=== PATIENT | male | born 1955 | race Caucasian/White ===

== ENCOUNTER 2016-10-16 05:32 | Emergency (ER) | payer OTHER ==
[~2016-10-16] VITALS: Ht 172.7 cm; Wt 72.6 kg
[~2016-10-16 05:32] MED LIST: TAMS0.4C97 PO
--- NOTE | 2016-10-16 06:07 | PHYS DOC ---
Past Medical History Past Medical History: Gallstones, Kidney Stone, Other Additional Past Medical Histor: ENLARGED PROSTATE Past Surgical History: Tonsillectomy, Other Additional Past Surgical Histo: MULTIPLE ORTHOPEDIC SURG, kidney stones Alcohol Use: None Drug Use: None Adult General Chief Complaint Chief Complaint: MECHANICAL FALL HPI HPI Patient is a 61 year old male who presents with rib pain. Patient reports 1 week ago he was walking trash out when he slipped on ice and fell, landing on his L side. He says his L elbow jammed into his L ribs during the fall. Patient has had continued pain in his L ribs during that time. He reports increased pain with movement or breathing. He is not SOB, but does have the increased pain with inspiration. Has been taking naproxen with partial improvement, but he has run out. No other acute complaints. Review of Systems Review of Systems Constitutional: Denies fever or chills Eyes: Denies change in visual acuity or eye pain HENT: Denies nasal congestion or sore throat Respiratory: Denies cough or shortness of breath Cardiovascular: L rib pain, no anterior chest pain GI: Denies abdominal pain, nausea, vomiting, bloody stools or diarrhea : Denies dysuria or hematuria Musculoskeletal: L rib pain Integument: Denies rash or skin lesions Neurologic: Denies headache, focal weakness or sensory changes Current Medications Current Medications Current Medications Medications (Trade) Dose Ordered Sig/Annie Start Time Stop Time Status Last Admin Dose Admin Naproxen (Naprosyn) 500 mg 1X ONCE 10/16/16 06:30 10/16/16 06:31 DC 10/16/16 06:52 500 MG Oxycodone/ Acetaminophen (Percocet 5/325) 2 tab 1X ONCE 10/16/16 06:30 10/16/16 06:31 DC 10/16/16 06:51 2 TAB Allergies Allergies Allergies Coded Allergies Type Severity Reaction Last Updated Verified ceftriaxone Allergy Intermediate 05/02/16 Yes ciprofloxacin Allergy Intermediate Palpitations 05/02/16 Yes Physical Exam Physical Exam Constitutional: Well developed, well nourished, no acute distress, non-toxic appearance HENT: Normocephalic, atraumatic, bilateral external ears normal Eyes: EOMI, conjunctiva normal, no discharge Neck: Normal range of motion, no stridor Cardiovascular: Heart rate normal, regular rhythm, no murmur Lungs & Thorax: Bilateral breath sounds clear to auscultation; L lateral chest wall without skin lesion or obvious bony abnormality, generally TTP along mid axillary line Abdomen: Bowel sounds normal, soft, non-distended, no TTP Skin: Warm, dry, no erythema, no rash Extremities: No obvious deformity, no edema Neurologic: Alert and oriented X 3, no gross deficits noted Current Patient Data Vital Signs Vital Signs Date Time Temp Pulse Resp B/P Pulse Ox O2 Delivery O2 Flow Rate FiO2 10/16/16 06:53 73 16 123/78 96 Room Air 10/16/16 05:41 98.4 98.4 EKG EKG EKG (my read): sinus rhythm, rate 68, normal axis, intervals wnl, no acute ischemic changes Radiology/Procedures Radiology/Procedures X-ray L ribs and chest: IMPRESSION: Left fifth and sixth rib fractures. Course & Med Decision Making Course & Med Decision Making Pertinent Labs and Imaging studies reviewed. (See chart for details) Patient is a 61 year old male who presents with L lateral chest pain s/p fall one week ago. Possible rib fx vs rib contusion. X-ray of ribs ordered as well as EKG. Oral pain medication ordered for symptoms. EKG ok per my read. Imaging results as above. Discussed results with patient. I provided him with an incentive spirometer and instructed him on its usage. Will discharge home with rx for pain meds, instructions for follow up with his PCP, and return precautions. Dragon Disclaimer Dragon Disclaimer This electronic medical record was generated, in whole or in part, using a voice recognition dictation system. Departure Departure Impression: Primary Impression: Rib fractures Disposition: 01 HOME, SELF-CARE Condition: STABLE Referrals: NO PCP (PCP) Patient Instructions: Incentive Spirometer, Rib Fracture Additional Instructions: Thank you for allowing us to provide care today in the Emergency Department. Take the provided medication as directed. Use caution after taking the pain medication as it can make you drowsy. Use the breathing device (incentive spirometer) frequently as we discussed. Schedule a follow up appointment with your primary care doctor. Return promptly to the Emergency Department if you develop any new or concerning symptoms. Scripts Naproxen 375 Mg [id number] Mg PO BID #40 Prov:LASHONDA CHAUHAN MD 10/16/16 Oxycodone/Apap 5-325 (Percocet 5-325 Mg Tablet)1 Each Tablet1 Tab PO PRN Q6HRS PRN PAIN #25 TAB Ref 0 Prov:LASHONDA CHAUHAN MD 10/16/16 LASHONDA CHAUHAN MD Oct 16, 2016 06:07
[2016-10-16] MEDS ORDERED: OXYCODONE/APAP 5/325 TABLET. PO ONE (06:30)
[2016-10-16] MEDS ORDERED: NAPROXEN 500 MG TABLET PO ONE (06:30)
--- NOTE | 2016-10-16 06:34 | ACF ---
Admission Forms Criteria PAIN MANAGEMENT [facility] Clinical Indications for Admission to Inpatient Care (Place 'X' for any and all applicable criteria): Hospital admission is needed for appropriate care of the patient because of ANY ONE of the following are present (1)(2)(3)(4)(5): [X]I. Severe pain requiring acute inpatient management as indicated by ALL of the following (2)(5)(10): [ ]a) Continuous or frequent (eg, every 2 to 4 hours) parenteral analgesics required [A] [X]b) Necessity (ie, alternative approaches not effective) for analgesic regimen that can only be performed or initiated in inpatient setting [ ]II. Pain causing debilitation to the point of inability to function or be supported at any other level of care [ ]III. Severe side effects from pain medications as indicated by ANY ONE of the following (12)(13)(14)(15): [ ]a) Uncontrollable seizures [ ]b) Cardiac arrhythmias [ ]c) Severe volume depletion [ ]d) Vomiting that is uncontrollable at any other level of care [ ]e) Altered mental status (Harish coma scale score less than 13) [ ]f) Obstipation with inadequate GI function to maintain nutrition [ ]g) Dehydration that is severe or persistent The original [employer] content created by [employer] has been revised. The portions of the content which have been revised are identified through the use of italic text or in bold, and [employer] has neither reviewed nor approved the modified material. All other unmodified content is copyright [employer]. Please see references footnoted in the original [employer] edition 2016 Admission Criteria Met?: Yes JORGE SHANNON Oct 16, 2016 06:34
--- NOTE | 2016-10-16 07:07 | EKG ---
[facility] [address] [place] [address] Test Date: 2016-10-16 Test Time: 06:49:56 Pat Name: DEVAN LAY Department: Room: Gender: M Radiography Technician: : 1955 Requested By: LASHONDA CHAUHAN Order Number: [id number] Reading MD: Praveena Cruz Measurements Intervals [place] Rate: 68 P: -30 SC: 172 QRS: 21 QRSD: 82 T: 21 QT: 398 QTc: 428 Interpretive Statements SINUS RHYTHM NORMAL ECG RI6.01 Compared to ECG 05/02/2016 12:41:31 Sinus tachycardia no longer present ST (T wave) deviation no longer present Electronically Signed On 10-17-2016 9:41:52 [employer]NA[employer] by Praveena Cruz
--- NOTE | 2016-10-16 07:11 | RAD ---
Left RIBS with chest, 3 views, 10/16/2016: History: Fall, pain There are fractures of the anterior ends of approximately the left fifth and sixth ribs which appear to be recent. No other acute fracture or rib abnormality is detected. There is no evidence of underlying pneumothorax, hemothorax or pulmonary infiltrate. The heart size is normal. IMPRESSION: Left fifth and sixth rib fractures.
[2016-10-16 07:19] VITALS: BP 117/77
[2016-10-16] MEDS ORDERED: NAPR375T3 PO (07:25)
[2016-10-16] MEDS ORDERED: OXYC-323 PO (07:25)
== END 2016-10-16 07:28 | disposition home or self-care (01) ==
LOC: ER 05:32
DX: S22.42XA Multiple fractures of ribs, left side, initial encounter for closed fracture (principal); Z88.1 Allergy status to other antibiotic agents; W01.0XXA Fall on same level from slipping, tripping and stumbling without subsequent striking against object, initial encounter; Y93.89 Activity, other specified; Y92.89 Other specified places as the place of occurrence of the external cause; Y99.8 Other external cause status
CPT/HCPCS: 71101; 93005; 99284-25

== ENCOUNTER 2017-01-04 02:52 | Emergency (ER) | payer OTHER ==
[~2017-01-04] VITALS: Ht 167.6 cm; Wt 74.8 kg
[~2017-01-04 02:52] MED LIST changes: +NAPR375T3 PO; +OXYC-323 PO
[2017-01-04 03:44] LABS: BILIRUBIN,URINE NEGATIVE (NEG); GLUCOSE,URINE NEGATIVE (NEG); NITRITE,URINE NEGATIVE (NEG); PH,URINE 5.5; PROTEIN,URINE 100 mg/dL (NEG-TRACE); UROBILINOGEN,URINE 0.2 mg/dL (0.2 mg/dL)
[2017-01-04 03:53] LABS: BACTERIA,URINE FEW /HPF (0-FEW); RBC,URINE TNTC /HPF (0-2); WBC,URINE TNTC /HPF (0-4)
[2017-01-04] MEDS ORDERED: FENTANYL PF 100 MCG/2 ML VIAL. IV PRN (04:00)
[2017-01-04] MEDS ORDERED: ONDANSETRON PF 4 MG/2 ML VIAL. IV ONE (04:00)
--- NOTE | 2017-01-04 04:16 | RAD ---
PROCEDURE CT abdomen pelvis without contrast HISTORY Left flank pain TECHNIQUE Noncontrast helical CT scanning of the abdomen and pelvis was performed. Without GI contrast, the sensitivity to detect GI tract pathology is decreased. Without IV contrast, the sensitivity to detect organ pathology is decreased. FINDINGS The liver is homogeneous in appearance on this noncontrast study and is normal in size. The spleen is homogeneous appearance on this noncontrast study and is normal in size. The pancreas is homogeneous appearance on this noncontrast study and is not enlarged. The gallbladder appears normal and no radiopaque gallstones are seen. No extrahepatic biliary ductal dilatation is seen. No adrenal masses are seen. The kidneys appear normal. The urinary bladder is mostly collapsed around a Pérez. Air within the urinary bladder is likely 2nd Pérez placement. There is moderate wall thickening of the urinary bladder. The appendix is normal.] No focal aneurysmal dilatation of the abdominal aorta is seen. No enlarged abdominal or pelvic lymphadenopathy is seen. No free intraperitoneal fluid or free intraperitoneal air is seen. No obstructive bowel pattern or inflammatory changes are seen. The lung bases are clear. No osteolytic process is seen. IMPRESSION [Moderate wall thickening of the urinary bladder could be secondary to cystitis. Neoplasm is possible. Correlation with urinary analysis is recommended. Electronically signed by: Sidney Worley MD (Jan 04, 2017 04:15:08)
[2017-01-04 04:27] LABS: BASO # 0.1 x10^3/uL (0.0-0.2); BASO % 1 % (0-3); EOS % 5 % (0-3); HEMATOCRIT 37.5 % (39.0-53.0); HEMOGLOBIN 12.6 g/dL (13.0-17.5); LYMPH # 3.1 x10^3/uL (1.0-4.8); LYMPH % 36 % (24-48); MEAN CORPUSCULAR HEMOGLOBIN 30 pg (25-35); MEAN CORPUSCULAR HGB CONC 33 g/dL (31-37); MEAN CORPUSCULAR VOLUME 90 fL (79-100); MONO % 14 % (0-9); NEUT % 45 % (31-73); PLATELET COUNT 263 x10^3/uL (140-400); RED BLOOD COUNT 4.16 x10^6/uL (4.30-5.70); RED CELL DISTRIBUTION WIDTH 14.5 % (11.5-14.5); WHITE BLOOD COUNT 8.6 x10^3/uL (4.0-11.0)
[2017-01-04 04:42] LABS: CALCIUM 8.8 mg/dL (8.5-10.1); CREATININE 1.4 mg/dL (0.7-1.3); GFR 51.5; POTASSIUM 3.8 mmol/L (3.5-5.1)
[2017-01-04 04:48] LABS: ALBUMIN 3.2 g/dL (3.4-5.0); ALBUMIN/GLOBULIN RATIO 0.8 (1.0-1.7); TOTAL BILIRUBIN 0.4 mg/dL (0.2-1.0); TOTAL PROTEIN 7.2 g/dL (6.4-8.2)
[2017-01-04] MEDS ORDERED: SMZ/TMP 800/160MG TABLET. PO ONE (05:00)
[2017-01-04] MEDS ORDERED: PHENAZOPYRIDINE 200 MG TABLET. PO ONE (05:15)
[2017-01-04] MEDS ORDERED: PHEN-318 PO (05:15)
[2017-01-04] MEDS ORDERED: SULF1TAB24 PO (05:15)
[2017-01-04 05:18] VITALS: BP 111/75
--- NOTE | 2017-01-04 07:53 | ED.ADGEN ---
Past Medical History Past Medical History: Gallstones, Kidney Stone, Other Additional Past Medical Histor: ENLARGED PROSTATE Past Surgical History: Tonsillectomy, Other Additional Past Surgical Histo: MULTIPLE ORTHOPEDIC SURG, kidney stones Alcohol Use: None Drug Use: None Adult General Chief Complaint Chief Complaint: URINARY RETENTION HPI HPI Patient is a 61 year old man, history of enlarged prostate, renal calculi, urinary retention, who presents to the emergency department with a complaint of lower quadrant abdominal pain, difficulty with urination. Patient states that he had what sounds like a bladder scan performed at his home yesterday, with his home health provider. He states that he had a Pérez catheter placed several years ago due to urinary retention, but did not follow-up with a urologist far as he is aware. He denies any back pain, any fevers or chills, any nausea or vomiting, any weakness numbness or tingling, any injuries. He states he did have blood in his urine, is concerned that he may have recurrent renal calculi. He does not yet know the results of the scan that was performed earlier today, although he was told that he was "not emptying my bladder". Review of Systems Review of Systems Constitutional: Denies fever or chills. [] Eyes: Denies change in visual acuity. [] HENT: Denies nasal congestion or sore throat. [] Respiratory: Denies cough or shortness of breath. [] Cardiovascular: Denies chest pain or edema. [] GI: Lower quadrant abdominal pain, nausea, no vomiting or diarrhea. : Dysuria, and difficulty with passing urine, hematuria. Musculoskeletal: Denies back pain or joint pain. [] Integument: Denies rash. [] Neurologic: Denies headache, focal weakness or sensory changes. [] Endocrine: Denies polyuria or polydipsia. [] Lymphatic: Denies swollen glands. [] Psychiatric: Denies depression or anxiety. [] Current Medications Current Medications Current Medications Medications (Trade) Dose Ordered Sig/Annie Start Time Stop Time Status Last Admin Dose Admin Fentanyl Citrate (Fentanyl 2ml Vial) 25 mcg PRN Q15MIN PRN 01/04/17 04:00 01/04/17 05:40 DC 01/04/17 04:19 25 MCG Ondansetron HCl (Zofran) 4 mg 1X ONCE 01/04/17 04:00 01/04/17 04:01 DC 01/04/17 04:18 4 MG Phenazopyridine HCl (Pyridium) 200 mg 1X ONCE 01/04/17 05:15 01/04/17 05:16 DC 01/04/17 05:18 200 MG Trimethoprim/ Sulfamethoxazole (Bactrim Ds) 1 tab 1X ONCE 01/04/17 05:00 01/04/17 05:01 DC 01/04/17 05:06 1 TAB Allergies Allergies Allergies Coded Allergies Type Severity Reaction Last Updated Verified ceftriaxone Allergy Intermediate 05/02/16 Yes ciprofloxacin Allergy Intermediate Palpitations 05/02/16 Yes Physical Exam Physical Exam Constitutional: Well developed, well nourished, mild distress secondary to pain , non-toxic appearance. [] HENT: Normocephalic, atraumatic, bilateral external ears normal, oropharynx moist, no oral exudates, nose normal. [] Eyes: PERRLA, EOMI, conjunctiva normal, no discharge. [] Neck: Normal range of motion, no tenderness, supple, no stridor. [] Cardiovascular:Heart rate regular rhythm, no murmur, S1, S2, rubs or gallops. [] Lungs & Thorax: Bilateral breath sounds clear to auscultation, no wheezing, rhonchi, rales. No chest tenderness or crepitus. [] Abdomen: Bowel sounds normal, soft, palpable bladder noted, patient with tenderness in the suprapubic region, no masses, no pulsatile masses. [] Skin: Warm, dry, no erythema, no rash. [] Back: No tenderness, no CVA tenderness. [] Extremities: No tenderness, no cyanosis, no clubbing, ROM intact, no edema. [] Neurologic: Alert and oriented X 3, normal motor function, normal sensory function, no focal deficits noted. [] Psychologic: Affect normal, judgement normal, mood normal. [] Current Patient Data Vital Signs Vital Signs Date Time Temp Pulse Resp B/P Pulse Ox O2 Delivery O2 Flow Rate FiO2 01/04/17 05:18 60 95 01/04/17 04:34 18 01/04/17 04:19 Room Air 01/04/17 03:00 98.1 137/84 98.1 Lab Values Laboratory Tests Test 01/04/17 03:00 01/04/17 04:10 Urine Collection Type Unknown Urine Color Yellow Urine Clarity Turbid Urine pH 5.5 Urine Specific [place] 1.020 Urine Protein 100mg/dL (NEG-TRACE) Urine Glucose (UA) Negativemg/dL (NEG) Urine Ketones (Stick) Negativemg/dL (NEG) Urine Blood Large (NEG) Urine Nitrite Negative (NEG) Urine Bilirubin Negative (NEG) Urine Urobilinogen Dipstick 0.2mg/dL (0.2 mg/dL) Urine Leukocyte Esterase Large (NEG) Urine RBC Tntc/HPF (0-2) Urine WBC Tntc/HPF (0-4) Urine Squamous Epithelial Cells None/LPF Urine Bacteria Few/HPF (0-FEW) Urine Mucus Slight/LPF White Blood Count 8.6x10^3/uL (4.0-11.0) Red Blood Count 4.16x10^6/uL (4.30-5.70) L Hemoglobin 12.6g/dL (13.0-17.5) L Hematocrit 37.5% (39.0-53.0) L Mean Corpuscular Volume 90fL (79-100) Mean Corpuscular Hemoglobin 30pg (25-35) Mean Corpuscular Hemoglobin Concent 33g/dL (31-37) Red Cell Distribution Width 14.5% (11.5-14.5) Platelet Count 263x10^3/uL (140-400) Neutrophils (%) (Auto) 45% (31-73) Lymphocytes (%) (Auto) 36% (24-48) Monocytes (%) (Auto) 14% (0-9) H Eosinophils (%) (Auto) 5% (0-3) H Basophils (%) (Auto) 1% (0-3) Neutrophils # (Auto) 3.9x10^3uL (1.8-7.7) Lymphocytes # (Auto) 3.1x10^3/uL (1.0-4.8) Monocytes # (Auto) 1.2x10^3/uL (0.0-1.1) H Eosinophils # (Auto) 0.4x10^3/uL (0.0-0.7) Basophils # (Auto) 0.1x10^3/uL (0.0-0.2) Sodium Level 142mmol/L (136-145) Potassium Level 3.8mmol/L (3.5-5.1) Chloride Level 107mmol/L (98-107) Carbon Dioxide Level 24mmol/L (21-32) Anion Gap 11 (6-14) Blood Urea Nitrogen 38mg/dL (8-26) H Creatinine 1.4mg/dL (0.7-1.3) H Estimated GFR (Cockcroft-Gault) 51.5 BUN/Creatinine Ratio 27 (6-20) H Glucose Level 131mg/dL (70-99) H Calcium Level 8.8mg/dL (8.5-10.1) Total Bilirubin 0.4mg/dL (0.2-1.0) Aspartate Amino Transferase (AST) 53U/L (15-37) H Alanine Aminotransferase (ALT) 78U/L (16-63) H Alkaline Phosphatase 73U/L (46-116) Total Protein 7.2g/dL (6.4-8.2) Albumin 3.2g/dL (3.4-5.0) L Albumin/Globulin Ratio 0.8 (1.0-1.7) L Laboratory Tests 01/04/17 04:10 Laboratory Tests 01/04/17 04:10 EKG EKG Not indicated. [] Radiology/Procedures Radiology/Procedures [] [facility] [address] [facility] [place], [place] [id number] IMAGING REPORT Signed PATIENT: DEVAN LAY ACCOUNT: [id number] : 1955 LOCATION: ER AGE: 61 SEX: M EXAM STATUS: REG ER ORD. PHYSICIAN: CONNOR FORREST DO REASON: L flank pain/urinary retention/ hx renal calculi PROCEDURE: CT ABDOMEN PELVIS WO CONTRAST PROCEDURE CT abdomen pelvis without contrast HISTORY Left flank pain TECHNIQUE Noncontrast helical CT scanning of the abdomen and pelvis was performed. Without GI contrast, the sensitivity to detect GI tract pathology is decreased. Without IV contrast, the sensitivity to detect organ pathology is decreased. FINDINGS The liver is homogeneous in appearance on this noncontrast study and is normal in size. The spleen is homogeneous appearance on this noncontrast study and is normal in size. The pancreas is homogeneous appearance on this noncontrast study and is not enlarged. The gallbladder appears normal and no radiopaque gallstones are seen. No extrahepatic biliary ductal dilatation is seen. No adrenal masses are seen. The kidneys appear normal. The urinary bladder is mostly collapsed around a Pérez. Air within the urinary bladder is likely 2nd Pérez placement. There is moderate wall thickening of the urinary bladder. The appendix is normal.] No focal aneurysmal dilatation of the abdominal aorta is seen. No enlarged abdominal or pelvic lymphadenopathy is seen. No free intraperitoneal fluid or free intraperitoneal air is seen. No obstructive bowel pattern or inflammatory changes are seen. The lung bases are clear. No osteolytic process is seen. IMPRESSION [Moderate wall thickening of the urinary bladder could be secondary to cystitis. Neoplasm is possible. Correlation with urinary analysis is recommended. Electronically signed by: Sonam Weber MD (Jan 04, 2017 04:15:08) DICTATED and SIGNED BY: SONAM WEBER III, MD DATE: 01/04/17 0415 CC: JONAH POTTS MD; CONNOR FORREST DO ~ Course & Med Decision Making Course & Med Decision Making Pertinent Labs and Imaging studies reviewed. (See chart for details) Due to patient's complaint of worsening pain, urinary retention, and history of renal calculi, after discussion at bedside we did obtain CT of the abdomen and pelvis to further elucidate the patient's symptoms. Patient noted to have greater than 590 mL's of urine in the bladder post void residual, and he fully catheter was placed in the emergency department without issue with improvement of the patient's symptoms. Patient noted to have mild hematuria. Laboratory studies reveal a creatinine of 1.4, with a blood urea nitrogen of 38, no leukocytosis, urinalysis reveals too numerous to count RBCs and WBCs, is nitrate negative, with few bacteria noted. CT reveals thickening of the bladder wall, no evidence of renal calculi, consistent with likely bladder infection, although unable to rule out possible neoplastic process. I did discuss this with the patient at bedside, he is resting comfortably at this time, states he is ready to be discharged home, is agreeable with plan for oral antibiotics, initiated on Bactrim in the emergency department, and does understand the importance of following up with urology for additional evaluation. To leave the Pérez catheter in place until you're seen by urology, contact information for Dr. Washburn of urology given with his discharge paperwork, along with clear and detailed return instructions, prescriptions for Bactrim and Pyridium. Patient discharged home in stable condition with medication prescriptions and instructions, precautions, follow-up instructions, plan as above. Qianaon Disclaimer Evelin Disclaimer This electronic medical record was generated, in whole or in part, using a voice recognition dictation system. Departure Impression: Primary Impression: Cystitis Additional Impressions: Urinary retention Hematuria Disposition: HOME, SELF-CARE Condition: IMPROVED Scripts Sulfamethoxazole/Trimethoprim (Bactrim Ds Tablet)1 Each Tablet1 Tab PO BID #14 TAB Prov:CONNOR FORREST DO 01/04/17 Phenazopyridine Hcl (Pyridium)200 Mg [id number] Mg PO TID PRN BLADDER SPASM #9 TAB Prov:CONNOR FORREST DO 01/04/17 Problem Qualifiers CONNOR FORREST DO Jan 04, 2017 07:53
== END 2017-01-04 05:30 | disposition home or self-care (01) ==
LOC: ER 02:52
DX: N30.91 Cystitis, unspecified with hematuria (principal); N40.1 Benign prostatic hyperplasia with lower urinary tract symptoms; Z87.442 Personal history of urinary calculi; Z88.1 Allergy status to other antibiotic agents
CPT/HCPCS: 36415; 51702; 74176; 80053; 81001; 85027; 87086; 96374; 96375; 99285; J2405; J3010

== ENCOUNTER 2017-01-29 16:38 | Inpatient (IN) | payer OTHER ==
[~2017-01-29] VITALS: Ht 170.2 cm; Wt 71.4 kg
[~2017-01-29 16:38] MED LIST changes: +PHEN-318 PO; +SULF1TAB24 PO
[2017-01-29 17:45] LABS: BILIRUBIN,URINE NEGATIVE (NEG); GLUCOSE,URINE NEGATIVE (NEG); NITRITE,URINE POSITIVE (NEG); PROTEIN,URINE 100 mg/dL (NEG-TRACE); UROBILINOGEN,URINE 0.2 mg/dL (0.2 mg/dL)
[2017-01-29] MEDS ORDERED: IV NORMAL SALINE 1000ML BAG 1,000 ML IV ONE (18:00)
[2017-01-29] MEDS ORDERED: KETOROLAC 15 MG/ML VIAL. IV ONE (18:00)
[2017-01-29 18:03] LABS: BACTERIA,URINE MANY /HPF (0-FEW); RBC,URINE >40 /HPF (0-2); WBC,URINE TNTC /HPF (0-4)
[2017-01-29 18:22] LABS: BASO # 0.1 x10^3/uL (0.0-0.2); BASO % 0 % (0-3); EOS % 0 % (0-3); HEMATOCRIT 40.7 % (39.0-53.0); HEMOGLOBIN 13.6 g/dL (13.0-17.5); LYMPH % 12 % (24-48); MEAN CORPUSCULAR HEMOGLOBIN 30 pg (25-35); MEAN CORPUSCULAR HGB CONC 33 g/dL (31-37); MEAN CORPUSCULAR VOLUME 90 fL (79-100); MONO % 12 % (0-9); NEUT % 75 % (31-73); PLATELET COUNT 319 x10^3/uL (140-400); RED BLOOD COUNT 4.51 x10^6/uL (4.30-5.70); RED CELL DISTRIBUTION WIDTH 14.4 % (11.5-14.5); WHITE BLOOD COUNT 16.1 x10^3/uL (4.0-11.0)
[2017-01-29 18:48] LABS: CREATININE 1.5 mg/dL (0.7-1.3); GFR 47.6; POTASSIUM 3.9 mmol/L (3.5-5.1)
--- NOTE | 2017-01-29 18:49 | ED.ADGEN ---
Past Medical History Past Medical History: Gallstones, Kidney Stone, Other Additional Past Medical Histor: ENLARGED PROSTATE Past Surgical History: Tonsillectomy, Other Additional Past Surgical Histo: MULTIPLE ORTHOPEDIC SURG, kidney stones Alcohol Use: None Drug Use: None Adult General Chief Complaint Chief Complaint: URINARY RETENTION HPI HPI Patient is a 61 year old man, history of an enlarged prostate and urinary retention, kidney stones, who presents the emergency department with a complaint of urinary retention. He states he's had increasing difficulty passing urine over the past 2 days. States he last voided early this morning. Complaining of abdominal pain and back pain, consistent with previous episodes of urinary retention. He states he has had fully catheters placed previously and has followed with a urologist, states that Her several removed but he is uncertain why he keeps having urinary retention. He states previously had infections in the urine for treated with antibiotics, but not recently. He denies any nausea or vomiting, any chest pain or short of breath, any weakness emesis or tingling, any injuries, any recent travel, surgery or other concerning history, no recent medication changes or missed doses of medication. Review of Systems Review of Systems Constitutional: Denies fever or chills. [] Eyes: Denies change in visual acuity. [] HENT: Denies nasal congestion or sore throat. [] Respiratory: Denies cough or shortness of breath. [] Cardiovascular: Denies chest pain or edema. [] GI: Denies nausea, vomiting, bloody stools or diarrhea. Lower abdominal pain. : Denies dysuria. Inability to urinate over the past 2 days, associated with abdominal pain. Musculoskeletal: Denies back pain or joint pain. [] Integument: Denies rash. [] Neurologic: Denies headache, focal weakness or sensory changes. [] Endocrine: Denies polyuria or polydipsia. [] Lymphatic: Denies swollen glands. [] Psychiatric: Denies depression or anxiety. [] Current Medications Current Medications Current Medications Medications (Trade) Dose Ordered Sig/Annie Start Time Stop Time Status Last Admin Dose Admin Ketorolac Tromethamine 10 mg 10 mg 1X ONCE 01/29/17 18:00 01/29/17 18:01 DC 01/29/17 18:10 10 MG Sodium Chloride (Iv Sodium Chloride 0.9% 1000ml Bag) 1,000 ml @ 1,000 mls/hr 1X ONCE 01/29/17 18:00 01/29/17 18:59 DC 01/29/17 18:10 1,000 MLS/HR Allergies Allergies Allergies Coded Allergies Type Severity Reaction Last Updated Verified ciprofloxacin Allergy Intermediate Palpitations 05/02/16 Yes Physical Exam Physical Exam Constitutional: Well developed, well nourished, no acute distress, non-toxic appearance. [] HENT: Normocephalic, atraumatic, bilateral external ears normal, oropharynx moist, no oral exudates, nose normal. [] Eyes: PERRLA, EOMI, conjunctiva normal, no discharge. [] Neck: Normal range of motion, no tenderness, supple, no stridor. [] Cardiovascular:Heart rate regular rhythm, no murmur [] Lungs & Thorax: Bilateral breath sounds clear to auscultation [] Abdomen: Bowel sounds normal, soft, no tenderness, no masses, no pulsatile masses. [] Skin: Warm, dry, no erythema, no rash. [] Back: No tenderness, no CVA tenderness. [] Extremities: No tenderness, no cyanosis, no clubbing, ROM intact, no edema. [] Neurologic: Alert and oriented X 3, normal motor function, normal sensory function, no focal deficits noted. [] Psychologic: Affect normal, judgement normal, mood normal. [] U examination: Patient with Pérez catheter in place, cloudy reddish yellow urine noted to be in Pérez catheter bag. No testicular tenderness, patient is circumcised, no lesions or injuries identified. Current Patient Data Vital Signs Vital Signs Date Time Temp Pulse Resp B/P Pulse Ox O2 Delivery O2 Flow Rate FiO2 01/29/17 18:34 118 14 96 01/29/17 16:56 98.0 Room Air 98.0 Lab Values Laboratory Tests Test 01/29/17 16:58 01/29/17 18:10 Urine Collection Type Unknown Urine Color Yellow Urine Clarity Turbid Urine pH 6.0 Urine Specific [place] 1.015 Urine Protein 100mg/dL (NEG-TRACE) Urine Glucose (UA) Negativemg/dL (NEG) Urine Ketones (Stick) Negativemg/dL (NEG) Urine Blood Large (NEG) Urine Nitrite Positive (NEG) Urine Bilirubin Negative (NEG) Urine Urobilinogen Dipstick 0.2mg/dL (0.2 mg/dL) Urine Leukocyte Esterase Large (NEG) Urine RBC >40/HPF (0-2) Urine WBC Tntc/HPF (0-4) Urine Bacteria Many/HPF (0-FEW) White Blood Count 16.1x10^3/uL (4.0-11.0) H Red Blood Count 4.51x10^6/uL (4.30-5.70) Hemoglobin 13.6g/dL (13.0-17.5) Hematocrit 40.7% (39.0-53.0) Mean Corpuscular Volume 90fL (79-100) Mean Corpuscular Hemoglobin 30pg (25-35) Mean Corpuscular Hemoglobin Concent 33g/dL (31-37) Red Cell Distribution Width 14.4% (11.5-14.5) Platelet Count 319x10^3/uL (140-400) Neutrophils (%) (Auto) 75% (31-73) H Lymphocytes (%) (Auto) 12% (24-48) L Monocytes (%) (Auto) 12% (0-9) H Eosinophils (%) (Auto) 0% (0-3) Basophils (%) (Auto) 0% (0-3) Neutrophils # (Auto) 12.1x10^3uL (1.8-7.7) H Lymphocytes # (Auto) 2.0x10^3/uL (1.0-4.8) Monocytes # (Auto) 1.9x10^3/uL (0.0-1.1) H Eosinophils # (Auto) 0.0x10^3/uL (0.0-0.7) Basophils # (Auto) 0.1x10^3/uL (0.0-0.2) Sodium Level 132mmol/L (136-145) L Potassium Level 3.9mmol/L (3.5-5.1) Chloride Level 99mmol/L (98-107) Carbon Dioxide Level 26mmol/L (21-32) Anion Gap 7 (6-14) Blood Urea Nitrogen 18mg/dL (8-26) Creatinine 1.5mg/dL (0.7-1.3) H Estimated GFR (Cockcroft-Gault) 47.6 BUN/Creatinine Ratio 12 (6-20) Glucose Level 110mg/dL (70-99) H Calcium Level 9.0mg/dL (8.5-10.1) Total Bilirubin 1.0mg/dL (0.2-1.0) Aspartate Amino Transferase (AST) 24U/L (15-37) Alanine Aminotransferase (ALT) 46U/L (16-63) Alkaline Phosphatase 77U/L (46-116) Total Protein 8.1g/dL (6.4-8.2) Albumin 3.0g/dL (3.4-5.0) L Albumin/Globulin Ratio 0.6 (1.0-1.7) L Laboratory Tests 01/29/17 18:10 Laboratory Tests 01/29/17 18:10 EKG EKG ECG: Sinus tachycardia, heart rate 110 bpm, no ectopy. As interpreted by me. [] Radiology/Procedures Radiology/Procedures None indicated. [] Course & Med Decision Making Course & Med Decision Making Pertinent Labs and Imaging studies reviewed. (See chart for details) Patient noted to be tachycardic, complaining of pain in the emergency department. Possible history of BPH, urinary retention related to urinary tract infection previously. Pérez catheter was placed without issue as stated, with over 400 mL of cloudy yellow red tinged urine. Patient states his abdominal pain is improved immediately, remains tachycardic, in the 1 teens, laboratory studies reveal a leukocytosis, with a nitrate positive UTI, examination and symptoms consistent with pyelonephritis. Patient receiving IV fluids, pain medication, is agreeable for initial hospital for IV antibiotics. Patient states that he has "uncontrolled movements" with ceftriaxone, no rash, or difficulty breathing, he cannot recall his allergy to Cipro Floxin, therefore the patient was initiated on cefepime in the emergency department without issue. Findings as above discussed with Dr. Harper of internal medicine, patient accepted his service as a full admission to the medical telemetry floor , patient's heart rate is improving, he remains afebrile the ED, consultation placed for urology. Bridge orders entered per discussion. Patient transported to the floor without issue. Dragon Disclaimer Dragon Disclaimer This electronic medical record was generated, in whole or in part, using a voice recognition dictation system. Departure Impression: Primary Impression: Pyelonephritis Additional Impression: Urinary retention Disposition: ADMITTED INPATIENT Admitting Physician: Ольга Harper Condition: IMPROVED Problem Qualifiers CONNOR FORREST DO January 29, 2017 18:49
[2017-01-29 18:53] LABS: ALBUMIN/GLOBULIN RATIO 0.6 (1.0-1.7); TOTAL PROTEIN 8.1 g/dL (6.4-8.2)
[2017-01-29] MEDS ORDERED: ONDANSETRON PF 4 MG/2 ML VIAL. IV ONE (20:00)
[2017-01-29] MEDS ORDERED: fentaNYL PF VIAL 100 MCG/2 ML VIAL IV PRN (20:00)
[2017-01-29] MEDS ORDERED: CEFEPIME HCL 1 GM in IV NORMAL SALINE 50ML 50 ML IV ONE (20:15)
[2017-01-29] MEDS ORDERED: ACETAMINOPHEN 325 MG TABLET. PO PRN (23:15)
[2017-01-29] MEDS ORDERED: ONDANSETRON PF 4 MG/2 ML VIAL. IV PRN (23:15)
[2017-01-29 23:30] VITALS: BP 147/93
--- NOTE | 2017-01-30 00:07 | HP ---
ADMIT DATE: 01/29/2017 CHIEF COMPLAINT: Flank pain, nausea, vomiting. HISTORY OF PRESENT ILLNESS: The patient is a pleasant 61-year-old male who presented with nausea, vomiting and flank pain, rates it 7/10 while in the ER. We checked his urine. He appears to have pyelonephritis. I have discussed the case with the ER physician. We are going to admit the patient, give him IV fluids, IV antibiotics. PAST MEDICAL HISTORY: Previous pyelonephritis. ALLERGIES: None. FAMILY HISTORY: Diabetes. SOCIAL HISTORY: Does not drink, smoke or take drugs. MEDICATIONS: Reviewed, please refer to MARD. REVIEW OF SYSTEMS: GENERAL: No history of weight change, weakness or fevers. SKIN: No bruising, hair changes or rashes. EYES: No blurred, double or loss of vision. NOSE AND THROAT: No history of nosebleeds, hoarseness or sore throat. HEART: No history of palpitations, chest pain or shortness of breath on exertion. LUNGS: Denies cough, hemoptysis, wheezing or shortness of breath. GASTROINTESTINAL: He complains of nausea and vomiting. GENITOURINARY: No history of frequency, urgency, hesitancy or nocturia. NEUROLOGIC: Denies history of numbness, tingling, tremor or weakness. PSYCHIATRIC: No history of panic, anxiety or depression. ENDOCRINE: No history of heat or cold intolerance, polyuria or polydipsia. MUSCULOSKELETAL: He complains of flank pain. PHYSICAL EXAMINATION: VITAL SIGNS: Temperature afebrile, pulse 67, respirations 20, blood pressure 133/91. GENERAL: He is alert, cooperative, flat affect. HEART: Normal S1, S2. LUNGS: Clear. ABDOMEN: Soft, positive bowel sounds. EXTREMITIES: No edema. SKIN: No rashes. PSYCHIATRIC: He is flat. ENDOCRINE: No thyromegaly. LYMPHATICS: No cervical nodes. HEMATOPOIETIC: No bruising. ASSESSMENT AND PLAN: Pyelonephritis. The patient has been admitted. We will give IV antibiotics, IV fluids, p.r.n. narcotics. Continue home medicines. ZA CHAMBERS DO DR: LEYLA/juliet JOB#: [id number] / [id number]
[2017-01-30] MEDS: IV NORMAL SALINE 1000ML BAG 1,000 ML IV SCH ×3 (00:14→13:00)
[2017-01-30] MEDS: MORPHINE SULFATE 4 MG/ML DISP.SYRIN. IV PRN ×5 (00:15→20:25)
--- NOTE | 2017-01-30 01:38 | ACF ---
Admission Forms Criteria PYELONEPHRITIS, ACUTE Clinical Indications for Admission to Inpatient Care (Place 'X' for any and all applicable criteria): Admission is indicated for ANY ONE of the following 1,2,3,4,5 [ ]I. Outpatient treatment has failed or is not feasible (eg, multidrug- resistant organism).5 [ ]II. beyond 24 weeks' gestation6 [ ]III. Hemodynamic instability [ ]IV. Immunocompromised state (eg, AIDS, diabetes, sickle cell disease) [X]V. Known renal or urologic abnormalities (eg, indwelling catheter, structural abnormalities, renal calculi, urinary stent, previous urologic surgery) [ ]. Condition that requires drainage procedure, including ANY ONE of the following: [ ]a) Urinary obstruction [ ]b) Pyelitis [ ]c) Pyonephrosis [ ]d) Renal or perinephric abscess [ ]e) Emphysematous pyelonephritis 7 [ ]VII. Inpatient admission required rather than observation care (Also use Pyelonephritis, Acute: Observation Care Criteria as appropriate) because of ANY ONE of the following: [ ]a) High fever or infection requiring inpatient admission as indicated by ANY ONE of [id number] [ ]A. Documented bacteremia [ ]B. Temp>104.9 [id number] (oral) [ ]C. Temp>103.10F (oral) or <96.80F (rectal) that does not respond to all emergency treatment [ ]b) Acute renal failure [ ]c) Other significant finding or clinical condition judged not to be within the scope of observation care [ ]d) IV fluid to replace significant ongoing (eg, for over 24hrs) losses (> 3 L/m2 per day) [ ]e) Other condition,treatment or monitoring requiring inpatient admission The original [facility] content created by [employer] has been revised. The portions of the content which have been revised are identified through the use of italic text or in bold, and [facility] has neither reviewed nor approved the modified material. All other unmodified content is copyright [facility]. Please see references footnoted in the original [facility] edition 2016 Admission Criteria Met?: Yes CELESTINO ARZATE January 30, 2017 01:38
[2017-01-30] MEDS: IBUPROFEN 600 MG TABLET. PO PRN ×2 (03:27→15:07)
[2017-01-30 03:47] VITALS: BP 144/88
[2017-01-30] MEDS ORDERED: PROP20TA (03:47)
[2017-01-30] MEDS ORDERED: ERGO500012 (03:47)
[2017-01-30] MEDS ORDERED: DUTA0.5C13 (03:47)
[2017-01-30] MEDS ORDERED: TADA5TAB (03:47)
[2017-01-30 04:57] LABS: BASO # 0.1 x10^3/uL (0.0-0.2); BASO % 0 % (0-3); EOS % 0 % (0-3); HEMATOCRIT 37.7 % (39.0-53.0); HEMOGLOBIN 12.7 g/dL (13.0-17.5); LYMPH # 1.2 x10^3/uL (1.0-4.8); LYMPH % 6 % (24-48); MEAN CORPUSCULAR HEMOGLOBIN 31 pg (25-35); MEAN CORPUSCULAR HGB CONC 34 g/dL (31-37); MEAN CORPUSCULAR VOLUME 91 fL (79-100); MONO % 11 % (0-9); NEUT % 83 % (31-73); PLATELET COUNT 296 x10^3/uL (140-400); RED BLOOD COUNT 4.16 x10^6/uL (4.30-5.70); RED CELL DISTRIBUTION WIDTH 14.1 % (11.5-14.5); WHITE BLOOD COUNT 20.9 x10^3/uL (4.0-11.0)
[2017-01-30 05:22] LABS: CALCIUM 8.6 mg/dL (8.5-10.1); CREATININE 1.5 mg/dL (0.7-1.3); GFR 47.6; POTASSIUM 3.5 mmol/L (3.5-5.1)
[2017-01-30] MEDS: CEFEPIME HCL 1 GM in IV NORMAL SALINE 50ML 50 ML IV SCH ×3 (06:03→22:00)
--- NOTE | 2017-01-30 06:27 | EKG ---
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
[2017-01-30 07:00] VITALS: BP 114/79
[2017-01-30] MEDS ORDERED: PHENAZOPYRIDINE 200 MG TABLET. PO PRN (08:45)
[2017-01-30] MEDS ORDERED: ACETAMINOPHEN 325 MG TABLET. PO PRN (08:45)
[2017-01-30] MEDS ORDERED: ONDANSETRON PF 4 MG/2 ML VIAL. IV PRN (08:45)
[2017-01-30] MEDS: TAMSULOSIN 0.4 MG CAP.ER.24H. PO SCH (09:00)
[2017-01-30] MEDS ORDERED: TAMSULOSIN 0.4 MG CAP.ER.24H. PO SCH (09:00)
--- NOTE | 2017-01-30 09:10 | PDOC ---
PROGRESS NOTES Subjective Subjective Pt. with urosepsis Objective Objective Vital Signs Date Time Temp Pulse Resp B/P Pulse Ox O2 Delivery O2 Flow Rate FiO2 01/30/17 07:35 Room Air 01/30/17 07:00 98.8 109 20 114/79 92 98.8 Intake and Output 01/30/17 07:00 Intake Total 2090 ml Output Total 700 ml Balance 1390 ml Intake Oral 240 ml IV Total 1850 ml Output Urine Total 700 ml Physical Exam Physical Exam churchill in place scrotal swelling and tenderness flank pain Plan Plan of Care scrotal and renal sono scrotal elevation ID and renal consult Problems Medical Problems: (1) Pyelonephritis Status: Acute (2) Urinary retention Status: Acute Comment Review of Relevant I have reviewed the following items cesar (where applicable) has been applied. Labs Laboratory Tests Test 01/29/17 16:58 01/29/17 18:10 01/30/17 04:02 Urine Collection Type Unknown Urine Color Yellow Urine Clarity Turbid Urine pH 6.0 Urine Specific [place] 1.015 Urine Protein 100mg/dL (NEG-TRACE) Urine Glucose (UA) Negativemg/dL (NEG) Urine Ketones (Stick) Negativemg/dL (NEG) Urine Blood Large (NEG) Urine Nitrite Positive (NEG) Urine Bilirubin Negative (NEG) Urine Urobilinogen Dipstick 0.2mg/dL (0.2 mg/dL) Urine Leukocyte Esterase Large (NEG) Urine RBC >40/HPF (0-2) Urine WBC Tntc/HPF (0-4) Urine Bacteria Many/HPF (0-FEW) White Blood Count 16.1x10^3/uL (4.0-11.0) 20.9x10^3/uL (4.0-11.0) Red Blood Count 4.51x10^6/uL (4.30-5.70) 4.16x10^6/uL (4.30-5.70) Hemoglobin 13.6g/dL (13.0-17.5) 12.7g/dL (13.0-17.5) Hematocrit 40.7% (39.0-53.0) 37.7% (39.0-53.0) Mean Corpuscular Volume 90fL (79-100) 91fL (79-100) Mean Corpuscular Hemoglobin 30pg (25-35) 31pg (25-35) Mean Corpuscular Hemoglobin Concent 33g/dL (31-37) 34g/dL (31-37) Red Cell Distribution Width 14.4% (11.5-14.5) 14.1% (11.5-14.5) Platelet Count 319x10^3/uL (140-400) 296x10^3/uL (140-400) Neutrophils (%) (Auto) 75% (31-73) 83% (31-73) Lymphocytes (%) (Auto) 12% (24-48) 6% (24-48) Monocytes (%) (Auto) 12% (0-9) 11% (0-9) Eosinophils (%) (Auto) 0% (0-3) 0% (0-3) Basophils (%) (Auto) 0% (0-3) 0% (0-3) Neutrophils # (Auto) 12.1x10^3uL (1.8-7.7) 17.5x10^3uL (1.8-7.7) Lymphocytes # (Auto) 2.0x10^3/uL (1.0-4.8) 1.2x10^3/uL (1.0-4.8) Monocytes # (Auto) 1.9x10^3/uL (0.0-1.1) 2.2x10^3/uL (0.0-1.1) Eosinophils # (Auto) 0.0x10^3/uL (0.0-0.7) 0.0x10^3/uL (0.0-0.7) Basophils # (Auto) 0.1x10^3/uL (0.0-0.2) 0.1x10^3/uL (0.0-0.2) Sodium Level 132mmol/L (136-145) 132mmol/L (136-145) Potassium Level 3.9mmol/L (3.5-5.1) 3.5mmol/L (3.5-5.1) Chloride Level 99mmol/L (98-107) 99mmol/L (98-107) Carbon Dioxide Level 26mmol/L (21-32) 21mmol/L (21-32) Anion Gap 7 (6-14) 12 (6-14) Blood Urea Nitrogen 18mg/dL (8-26) 18mg/dL (8-26) Creatinine 1.5mg/dL (0.7-1.3) 1.5mg/dL (0.7-1.3) Estimated GFR (Cockcroft-Gault) 47.6 47.6 BUN/Creatinine Ratio 12 (6-20) Glucose Level 110mg/dL (70-99) 95mg/dL (70-99) Calcium Level 9.0mg/dL (8.5-10.1) 8.6mg/dL (8.5-10.1) Total Bilirubin 1.0mg/dL (0.2-1.0) Aspartate Amino Transf (AST/SGOT) 24U/L (15-37) Alanine Aminotransferase (ALT/SGPT) 46U/L (16-63) Alkaline Phosphatase 77U/L (46-116) Total Protein 8.1g/dL (6.4-8.2) Albumin 3.0g/dL (3.4-5.0) Albumin/Globulin Ratio 0.6 (1.0-1.7) Laboratory Tests Test 01/29/17 16:58 01/29/17 18:10 01/30/17 04:02 Urine Collection Type Unknown Urine Color Yellow Urine Clarity Turbid Urine pH 6.0 Urine Specific [place] 1.015 Urine Protein 100mg/dL (NEG-TRACE) Urine Glucose (UA) Negativemg/dL (NEG) Urine Ketones (Stick) Negativemg/dL (NEG) Urine Blood Large (NEG) Urine Nitrite Positive (NEG) Urine Bilirubin Negative (NEG) Urine Urobilinogen Dipstick 0.2mg/dL (0.2 mg/dL) Urine Leukocyte Esterase Large (NEG) Urine RBC >40/HPF (0-2) Urine WBC Tntc/HPF (0-4) Urine Bacteria Many/HPF (0-FEW) White Blood Count 16.1x10^3/uL (4.0-11.0) 20.9x10^3/uL (4.0-11.0) Red Blood Count 4.51x10^6/uL (4.30-5.70) 4.16x10^6/uL (4.30-5.70) Hemoglobin 13.6g/dL (13.0-17.5) 12.7g/dL (13.0-17.5) Hematocrit 40.7% (39.0-53.0) 37.7% (39.0-53.0) Mean Corpuscular Volume 90fL (79-100) 91fL (79-100) Mean Corpuscular Hemoglobin 30pg (25-35) 31pg (25-35) Mean Corpuscular Hemoglobin Concent 33g/dL (31-37) 34g/dL (31-37) Red Cell Distribution Width 14.4% (11.5-14.5) 14.1% (11.5-14.5) Platelet Count 319x10^3/uL (140-400) 296x10^3/uL (140-400) Neutrophils (%) (Auto) 75% (31-73) 83% (31-73) Lymphocytes (%) (Auto) 12% (24-48) 6% (24-48) Monocytes (%) (Auto) 12% (0-9) 11% (0-9) Eosinophils (%) (Auto) 0% (0-3) 0% (0-3) Basophils (%) (Auto) 0% (0-3) 0% (0-3) Neutrophils # (Auto) 12.1x10^3uL (1.8-7.7) 17.5x10^3uL (1.8-7.7) Lymphocytes # (Auto) 2.0x10^3/uL (1.0-4.8) 1.2x10^3/uL (1.0-4.8) Monocytes # (Auto) 1.9x10^3/uL (0.0-1.1) 2.2x10^3/uL (0.0-1.1) Eosinophils # (Auto) 0.0x10^3/uL (0.0-0.7) 0.0x10^3/uL (0.0-0.7) Basophils # (Auto) 0.1x10^3/uL (0.0-0.2) 0.1x10^3/uL (0.0-0.2) Sodium Level 132mmol/L (136-145) 132mmol/L (136-145) Potassium Level 3.9mmol/L (3.5-5.1) 3.5mmol/L (3.5-5.1) Chloride Level 99mmol/L (98-107) 99mmol/L (98-107) Carbon Dioxide Level 26mmol/L (21-32) 21mmol/L (21-32) Anion Gap 7 (6-14) 12 (6-14) Blood Urea Nitrogen 18mg/dL (8-26) 18mg/dL (8-26) Creatinine 1.5mg/dL (0.7-1.3) 1.5mg/dL (0.7-1.3) Estimated GFR (Cockcroft-Gault) 47.6 47.6 BUN/Creatinine Ratio 12 (6-20) Glucose Level 110mg/dL (70-99) 95mg/dL (70-99) Calcium Level 9.0mg/dL (8.5-10.1) 8.6mg/dL (8.5-10.1) Total Bilirubin 1.0mg/dL (0.2-1.0) Aspartate Amino Transf (AST/SGOT) 24U/L (15-37) Alanine Aminotransferase (ALT/SGPT) 46U/L (16-63) Alkaline Phosphatase 77U/L (46-116) Total Protein 8.1g/dL (6.4-8.2) Albumin 3.0g/dL (3.4-5.0) Albumin/Globulin Ratio 0.6 (1.0-1.7) Medications Current Medications Ketorolac Tromethamine 10 mg 10 mg 1X ONCE IV Last administered on 01/29/17 18 :10; Start 01/29/17 at 18:00; Stop 01/29/17 at 18:01; Status DC Sodium Chloride 1,000 ml @ 1,000 mls/hr 1X ONCE IV Last administered on 18:10; Start 01/29/17 at 18:00; Stop 01/29/17 at 18:59; Status DC Cefepime HCl/ Sodium Chloride (Maxipime/Iv Sodium Chloride 0.9% 50ml) 50 ml @ 100 mls/hr Q8HRS IV Last administered on 01/30/17 06:03; Start 01/30/17 at 06:00 Fentanyl Citrate (Fentanyl 2ml Vial) 25 mcg PRN Q15MIN PRN IV PAIN GREATER THAN 3/10; Start 01/29/17 at 20:00; Stop 01/30/17 at 00:00; Status DC Ondansetron HCl 4 mg 4 mg 1X ONCE IV ; Start 01/29/17 at 20:00; Stop 01/29/17 at 20:01; Status DC Cefepime HCl/ Sodium Chloride (Maxipime/Iv Sodium Chloride 0.9% 50ml) 50 ml @ 100 mls/hr 1X ONCE IV Last administered on 01/29/17 20:15; Start 01/29/17 at 20 :15; Stop 01/29/17 at 20:44; Status DC Ondansetron HCl (Zofran) 4 mg PRN Q8HRS PRN IV NAUSEA/VOMITING; Start 01/29/17 at 23:15; Stop 01/30/17 at 23:14 Morphine Sulfate 4 mg 4 mg PRN Q2HR PRN IV SEVERE PAIN Last administered on 01/30 06:12; Start 01/29/17 at 23:15; Stop 01/30/17 at 23:14 Sodium Chloride (Iv Sodium Chloride 0.9% 1000ml Bag) 1,000 ml @ 125 mls/hr Q8H IV Last administered on 01/30/17 06:04; Start 01/29/17 at 23:02; Stop 01/30/17 at 23:01 Acetaminophen (Tylenol) 650 mg PRN Q4HRS PRN PO FEVER Last administered on 00:14; Start 01/29/17 at 23:15; Stop 01/30/17 at 23:14 Ibuprofen (Motrin) 600 mg PRN Q6HRS PRN PO FEVER Last administered on 01/30/17 03:27; Start 01/30/17 at 03:15 Acetaminophen (Tylenol) 650 mg PRN Q6HRS PRN PO FEVER; Start 01/30/17 at 08:45 Ondansetron HCl (Zofran) 4 mg PRN Q6HRS PRN IV NAUSEA/VOMITING; Start 01/30/17 at 08:45 Oxycodone/ Acetaminophen (Percocet 5/325) 1 tab PRN Q6HRS PRN PO PAIN; Start at 08:45 Phenazopyridine HCl (Pyridium) 200 mg PRN TID PRN PO BLADDER SPASM; Start at 08:45 Tamsulosin HCl (Flomax) 0.4 mg DAILY PO ; Start 01/30/17 at 09:00; Stop 01/30/17 at 09:00; Status DC Tamsulosin HCl (Flomax) 0.8 mg DAILY PO ; Start 01/30/17 at 09:00 Active Scripts Active Bactrim Ds Tablet (Sulfamethoxazole/Trimethoprim) 1 Each Tablet 1 Tab PO BID Pyridium (Phenazopyridine Hcl) 200 Mg Tablet 200 Mg PO TID PRN Naproxen 375 Mg Tablet 375 Mg PO BID Percocet 5-325 Mg Tablet (Oxycodone/Acetaminophen) 1 Each Tablet 1 Tab PO PRN Q6HRS PRN Reported Cialis (Tadalafil) 5 Mg Tablet Vitamin D2 (Ergocalciferol (Vitamin D2)) 50,000 Unit Capsule Dutasteride 0.5 Mg Capsule Flomax (Tamsulosin Hcl) 0.4 Mg Cap.er.24h 1 Cap PO DAILY Propranolol Hcl 20 Mg Tablet Vitals/I & O Vital Sign - Last 24 Hours 01/29/17 01/29/17 01/29/17 01/29/17 16:56 18:34 20:07 23:30 Temp 98.0 98.0 Pulse 130 118 112 Resp 26 14 16 Pulse Ox 96 96 96 O2 Delivery Room Air Room Air 01/29/17 01/30/17 01/30/17 01/30/17 23:30 00:15 02:27 03:47 Temp 100.1 101.5 100.1 101.5 Pulse 118 126 Resp 22 18 B/P 147/93 144/88 Pulse Ox 95 96 96 91 O2 Delivery Room Air Room Air Room Air Room Air 01/30/17 01/30/17 01/30/17 01/30/17 05:30 06:12 06:42 07:00 Temp 98.7 98.8 98.7 98.8 Pulse 109 B/P 114/79 Pulse Ox 91 91 O2 Delivery Room Air Room Air 01/30/17 01/30/17 07:00 07:35 Temp 98.8 98.8 Pulse 109 Resp 20 B/P 114/79 Pulse Ox 92 O2 Delivery Room Air Room Air Intake and Output 01/29/17 01/29/17 01/30/17 15:00 23:00 07:00 Intake Total 1050 ml 1040 ml Output Total 700 ml Balance 1050 ml 340 ml MANUEL PATINO MD January 30, 2017 09:10
--- NOTE | 2017-01-30 09:37 | PDOC ---
Infectious Disease Note Vital Sign Vital Signs Vital Signs Date Time Temp Pulse Resp B/P Pulse Ox O2 Delivery O2 Flow Rate FiO2 01/30/17 07:35 Room Air 01/30/17 07:00 98.8 109 20 114/79 92 98.8 Labs Lab Laboratory Tests Test 01/29/17 16:58 01/29/17 18:10 01/30/17 04:02 Urine Collection Type Unknown Urine Color Yellow Urine Clarity Turbid Urine pH 6.0 Urine Specific [place] 1.015 Urine Protein 100mg/dL (NEG-TRACE) Urine Glucose (UA) Negativemg/dL (NEG) Urine Ketones (Stick) Negativemg/dL (NEG) Urine Blood Large (NEG) Urine Nitrite Positive (NEG) Urine Bilirubin Negative (NEG) Urine Urobilinogen Dipstick 0.2mg/dL (0.2 mg/dL) Urine Leukocyte Esterase Large (NEG) Urine RBC >40/HPF (0-2) Urine WBC Tntc/HPF (0-4) Urine Bacteria Many/HPF (0-FEW) White Blood Count 16.1x10^3/uL (4.0-11.0) 20.9x10^3/uL (4.0-11.0) Red Blood Count 4.51x10^6/uL (4.30-5.70) 4.16x10^6/uL (4.30-5.70) Hemoglobin 13.6g/dL (13.0-17.5) 12.7g/dL (13.0-17.5) Hematocrit 40.7% (39.0-53.0) 37.7% (39.0-53.0) Mean Corpuscular Volume 90fL (79-100) 91fL (79-100) Mean Corpuscular Hemoglobin 30pg (25-35) 31pg (25-35) Mean Corpuscular Hemoglobin Concent 33g/dL (31-37) 34g/dL (31-37) Red Cell Distribution Width 14.4% (11.5-14.5) 14.1% (11.5-14.5) Platelet Count 319x10^3/uL (140-400) 296x10^3/uL (140-400) Neutrophils (%) (Auto) 75% (31-73) 83% (31-73) Lymphocytes (%) (Auto) 12% (24-48) 6% (24-48) Monocytes (%) (Auto) 12% (0-9) 11% (0-9) Eosinophils (%) (Auto) 0% (0-3) 0% (0-3) Basophils (%) (Auto) 0% (0-3) 0% (0-3) Neutrophils # (Auto) 12.1x10^3uL (1.8-7.7) 17.5x10^3uL (1.8-7.7) Lymphocytes # (Auto) 2.0x10^3/uL (1.0-4.8) 1.2x10^3/uL (1.0-4.8) Monocytes # (Auto) 1.9x10^3/uL (0.0-1.1) 2.2x10^3/uL (0.0-1.1) Eosinophils # (Auto) 0.0x10^3/uL (0.0-0.7) 0.0x10^3/uL (0.0-0.7) Basophils # (Auto) 0.1x10^3/uL (0.0-0.2) 0.1x10^3/uL (0.0-0.2) Sodium Level 132mmol/L (136-145) 132mmol/L (136-145) Potassium Level 3.9mmol/L (3.5-5.1) 3.5mmol/L (3.5-5.1) Chloride Level 99mmol/L (98-107) 99mmol/L (98-107) Carbon Dioxide Level 26mmol/L (21-32) 21mmol/L (21-32) Anion Gap 7 (6-14) 12 (6-14) Blood Urea Nitrogen 18mg/dL (8-26) 18mg/dL (8-26) Creatinine 1.5mg/dL (0.7-1.3) 1.5mg/dL (0.7-1.3) Estimated GFR (Cockcroft-Gault) 47.6 47.6 BUN/Creatinine Ratio 12 (6-20) Glucose Level 110mg/dL (70-99) 95mg/dL (70-99) Calcium Level 9.0mg/dL (8.5-10.1) 8.6mg/dL (8.5-10.1) Total Bilirubin 1.0mg/dL (0.2-1.0) Aspartate Amino Transf (AST/SGOT) 24U/L (15-37) Alanine Aminotransferase (ALT/SGPT) 46U/L (16-63) Alkaline Phosphatase 77U/L (46-116) Total Protein 8.1g/dL (6.4-8.2) Albumin 3.0g/dL (3.4-5.0) Albumin/Globulin Ratio 0.6 (1.0-1.7) Objective Assessment Scrotal swelling and pain, epididymo orchitis Fever and leukocytosis h/o kidney stones UTI with possible pylonephritis Plan Plan of Care cont cefepime add doxy supportive care check cultures KISHOR BLANCO MD January 30, 2017 09:37
[2017-01-30 10:01] LABS: PLT ESTIMATE ADEQUATE (ADEQUATE); TOXIC GRANULATION PRESENT; TOXIC VACUOLATION PRESENT
--- NOTE | 2017-01-30 10:20 | RAD ---
Scrotal ultrasound, 01/30/2017: History: Scrotal swelling The right testicle measures 4.5 x 3.5 x 3.0 cm while the left testicle measures 4.1 x 3.1 x 2.4 cm. There is symmetric blood flow within both testicles. No testicular mass is seen. The epididymis on both sides is enlarged, heterogeneous and hypervascular. The appearance suggests epididymitis. There are moderate sized bilateral hydroceles. The fluid contains some echogenic debris and multiple septations on both sides. IMPRESSION: 1. Bilateral epididymal enlargement and hypervascularity compatible with epididymitis. 2. No testicular abnormality is detected. 3. Moderate sized complex bilateral hydroceles. Infection within this fluid cannot be excluded.
--- NOTE | 2017-01-30 10:21 | RAD ---
Indication compromised renal function. Grayscale imaging targeted to the kidneys was performed. Note is made of a previous complete abdominal ultrasound examination 05/03/2016. Note is made of a CT examination of the abdomen and pelvis 01/04/2017. The right kidney measures 13.1 x 5.3 x 4.7 cm and appears normal. There is no hydronephrosis or mass. The left kidney measures 11.6 x 4.3 x 5 cm and also appears normal showing no evidence of hydronephrosis or mass. Patient has a Pérez catheter in the urinary bladder. The urinary bladder, as a result, is collapsed and poorly evaluated with ultrasound. IMPRESSION: Normal morphologic appearance of the kidneys
[2017-01-30] MEDS: DOXYCYCLINE HYCLATE 100 MG in IV DEXTROSE 5% 100 ML IV SCH ×2 (10:23→20:25)
[2017-01-30 11:00] VITALS: BP 98/57
--- NOTE | 2017-01-30 12:48 | PDOC ---
PROGRESS NOTES Subjective Subjective Pt. with chills Objective Objective Vital Signs Date Time Temp Pulse Resp B/P Pulse Ox O2 Delivery O2 Flow Rate FiO2 01/30/17 11:00 100.4 92 20 98/57 93 Room Air 100.4 Intake and Output 01/30/17 07:00 Intake Total 2090 ml Output Total 700 ml Balance 1390 ml Intake Oral 240 ml IV Total 1850 ml Output Urine Total 700 ml Physical Exam Physical Exam scrotal sono-bilateral epididymitis and complex hydroceles Plan Plan of Care [place]ill Abs per ID scrotal elevation Problems Medical Problems: (1) Pyelonephritis Status: Acute (2) Urinary retention Status: Acute Comment Review of Relevant I have reviewed the following items cesar (where applicable) has been applied. Labs Laboratory Tests Test 01/29/17 16:58 01/29/17 18:10 01/30/17 04:02 Urine Collection Type Unknown Urine Color Yellow Urine Clarity Turbid Urine pH 6.0 Urine Specific [place] 1.015 Urine Protein 100mg/dL (NEG-TRACE) Urine Glucose (UA) Negativemg/dL (NEG) Urine Ketones (Stick) Negativemg/dL (NEG) Urine Blood Large (NEG) Urine Nitrite Positive (NEG) Urine Bilirubin Negative (NEG) Urine Urobilinogen Dipstick 0.2mg/dL (0.2 mg/dL) Urine Leukocyte Esterase Large (NEG) Urine RBC >40/HPF (0-2) Urine WBC Tntc/HPF (0-4) Urine Bacteria Many/HPF (0-FEW) White Blood Count 16.1x10^3/uL (4.0-11.0) 20.9x10^3/uL (4.0-11.0) Red Blood Count 4.51x10^6/uL (4.30-5.70) 4.16x10^6/uL (4.30-5.70) Hemoglobin 13.6g/dL (13.0-17.5) 12.7g/dL (13.0-17.5) Hematocrit 40.7% (39.0-53.0) 37.7% (39.0-53.0) Mean Corpuscular Volume 90fL (79-100) 91fL (79-100) Mean Corpuscular Hemoglobin 30pg (25-35) 31pg (25-35) Mean Corpuscular Hemoglobin Concent 33g/dL (31-37) 34g/dL (31-37) Red Cell Distribution Width 14.4% (11.5-14.5) 14.1% (11.5-14.5) Platelet Count 319x10^3/uL (140-400) 296x10^3/uL (140-400) Neutrophils (%) (Auto) 75% (31-73) 83% (31-73) Lymphocytes (%) (Auto) 12% (24-48) 6% (24-48) Monocytes (%) (Auto) 12% (0-9) 11% (0-9) Eosinophils (%) (Auto) 0% (0-3) 0% (0-3) Basophils (%) (Auto) 0% (0-3) 0% (0-3) Neutrophils # (Auto) 12.1x10^3uL (1.8-7.7) 17.5x10^3uL (1.8-7.7) Lymphocytes # (Auto) 2.0x10^3/uL (1.0-4.8) 1.2x10^3/uL (1.0-4.8) Monocytes # (Auto) 1.9x10^3/uL (0.0-1.1) 2.2x10^3/uL (0.0-1.1) Eosinophils # (Auto) 0.0x10^3/uL (0.0-0.7) 0.0x10^3/uL (0.0-0.7) Basophils # (Auto) 0.1x10^3/uL (0.0-0.2) 0.1x10^3/uL (0.0-0.2) Sodium Level 132mmol/L (136-145) 132mmol/L (136-145) Potassium Level 3.9mmol/L (3.5-5.1) 3.5mmol/L (3.5-5.1) Chloride Level 99mmol/L (98-107) 99mmol/L (98-107) Carbon Dioxide Level 26mmol/L (21-32) 21mmol/L (21-32) Anion Gap 7 (6-14) 12 (6-14) Blood Urea Nitrogen 18mg/dL (8-26) 18mg/dL (8-26) Creatinine 1.5mg/dL (0.7-1.3) 1.5mg/dL (0.7-1.3) Estimated GFR (Cockcroft-Gault) 47.6 47.6 BUN/Creatinine Ratio 12 (6-20) Glucose Level 110mg/dL (70-99) 95mg/dL (70-99) Calcium Level 9.0mg/dL (8.5-10.1) 8.6mg/dL (8.5-10.1) Total Bilirubin 1.0mg/dL (0.2-1.0) Aspartate Amino Transf (AST/SGOT) 24U/L (15-37) Alanine Aminotransferase (ALT/SGPT) 46U/L (16-63) Alkaline Phosphatase 77U/L (46-116) Total Protein 8.1g/dL (6.4-8.2) Albumin 3.0g/dL (3.4-5.0) Albumin/Globulin Ratio 0.6 (1.0-1.7) Segmented Neutrophils % 77% (35-66) Band Neutrophils % 8% (0-9) Lymphocytes % 4% (24-48) Monocytes % 11% (0-10) Toxic Granulation Present Toxic Vacuolation Present Platelet Estimate Adequate (ADEQUATE) Laboratory Tests Test 01/29/17 16:58 01/29/17 18:10 01/30/17 04:02 Urine Collection Type Unknown Urine Color Yellow Urine Clarity Turbid Urine pH 6.0 Urine Specific [place] 1.015 Urine Protein 100mg/dL (NEG-TRACE) Urine Glucose (UA) Negativemg/dL (NEG) Urine Ketones (Stick) Negativemg/dL (NEG) Urine Blood Large (NEG) Urine Nitrite Positive (NEG) Urine Bilirubin Negative (NEG) Urine Urobilinogen Dipstick 0.2mg/dL (0.2 mg/dL) Urine Leukocyte Esterase Large (NEG) Urine RBC >40/HPF (0-2) Urine WBC Tntc/HPF (0-4) Urine Bacteria Many/HPF (0-FEW) White Blood Count 16.1x10^3/uL (4.0-11.0) 20.9x10^3/uL (4.0-11.0) Red Blood Count 4.51x10^6/uL (4.30-5.70) 4.16x10^6/uL (4.30-5.70) Hemoglobin 13.6g/dL (13.0-17.5) 12.7g/dL (13.0-17.5) Hematocrit 40.7% (39.0-53.0) 37.7% (39.0-53.0) Mean Corpuscular Volume 90fL (79-100) 91fL (79-100) Mean Corpuscular Hemoglobin 30pg (25-35) 31pg (25-35) Mean Corpuscular Hemoglobin Concent 33g/dL (31-37) 34g/dL (31-37) Red Cell Distribution Width 14.4% (11.5-14.5) 14.1% (11.5-14.5) Platelet Count 319x10^3/uL (140-400) 296x10^3/uL (140-400) Neutrophils (%) (Auto) 75% (31-73) 83% (31-73) Lymphocytes (%) (Auto) 12% (24-48) 6% (24-48) Monocytes (%) (Auto) 12% (0-9) 11% (0-9) Eosinophils (%) (Auto) 0% (0-3) 0% (0-3) Basophils (%) (Auto) 0% (0-3) 0% (0-3) Neutrophils # (Auto) 12.1x10^3uL (1.8-7.7) 17.5x10^3uL (1.8-7.7) Lymphocytes # (Auto) 2.0x10^3/uL (1.0-4.8) 1.2x10^3/uL (1.0-4.8) Monocytes # (Auto) 1.9x10^3/uL (0.0-1.1) 2.2x10^3/uL (0.0-1.1) Eosinophils # (Auto) 0.0x10^3/uL (0.0-0.7) 0.0x10^3/uL (0.0-0.7) Basophils # (Auto) 0.1x10^3/uL (0.0-0.2) 0.1x10^3/uL (0.0-0.2) Sodium Level 132mmol/L (136-145) 132mmol/L (136-145) Potassium Level 3.9mmol/L (3.5-5.1) 3.5mmol/L (3.5-5.1) Chloride Level 99mmol/L (98-107) 99mmol/L (98-107) Carbon Dioxide Level 26mmol/L (21-32) 21mmol/L (21-32) Anion Gap 7 (6-14) 12 (6-14) Blood Urea Nitrogen 18mg/dL (8-26) 18mg/dL (8-26) Creatinine 1.5mg/dL (0.7-1.3) 1.5mg/dL (0.7-1.3) Estimated GFR (Cockcroft-Gault) 47.6 47.6 BUN/Creatinine Ratio 12 (6-20) Glucose Level 110mg/dL (70-99) 95mg/dL (70-99) Calcium Level 9.0mg/dL (8.5-10.1) 8.6mg/dL (8.5-10.1) Total Bilirubin 1.0mg/dL (0.2-1.0) Aspartate Amino Transf (AST/SGOT) 24U/L (15-37) Alanine Aminotransferase (ALT/SGPT) 46U/L (16-63) Alkaline Phosphatase 77U/L (46-116) Total Protein 8.1g/dL (6.4-8.2) Albumin 3.0g/dL (3.4-5.0) Albumin/Globulin Ratio 0.6 (1.0-1.7) Segmented Neutrophils % 77% (35-66) Band Neutrophils % 8% (0-9) Lymphocytes % 4% (24-48) Monocytes % 11% (0-10) Toxic Granulation Present Toxic Vacuolation Present Platelet Estimate Adequate (ADEQUATE) Medications Current Medications Ketorolac Tromethamine 10 mg 10 mg 1X ONCE IV Last administered on 01/29/17 18 :10; Start 01/29/17 at 18:00; Stop 01/29/17 at 18:01; Status DC Sodium Chloride 1,000 ml @ 1,000 mls/hr 1X ONCE IV Last administered on 18:10; Start 01/29/17 at 18:00; Stop 01/29/17 at 18:59; Status DC Cefepime HCl/ Sodium Chloride (Maxipime/Iv Sodium Chloride 0.9% 50ml) 50 ml @ 100 mls/hr Q8HRS IV Last administered on 01/30/17 06:03; Start 01/30/17 at 06:00 Fentanyl Citrate (Fentanyl 2ml Vial) 25 mcg PRN Q15MIN PRN IV PAIN GREATER THAN 3/10; Start 01/29/17 at 20:00; Stop 01/30/17 at 00:00; Status DC Ondansetron HCl 4 mg 4 mg 1X ONCE IV ; Start 01/29/17 at 20:00; Stop 01/29/17 at 20:01; Status DC Cefepime HCl/ Sodium Chloride (Maxipime/Iv Sodium Chloride 0.9% 50ml) 50 ml @ 100 mls/hr 1X ONCE IV Last administered on 01/29/17 20:15; Start 01/29/17 at 20 :15; Stop 01/29/17 at 20:44; Status DC Ondansetron HCl (Zofran) 4 mg PRN Q8HRS PRN IV NAUSEA/VOMITING; Start 01/29/17 at 23:15; Stop 01/30/17 at 23:14 Morphine Sulfate 4 mg 4 mg PRN Q2HR PRN IV SEVERE PAIN Last administered on 01/30 06:12; Start 01/29/17 at 23:15; Stop 01/30/17 at 23:14 Sodium Chloride (Iv Sodium Chloride 0.9% 1000ml Bag) 1,000 ml @ 125 mls/hr Q8H IV Last administered on 01/30/17 06:04; Start 01/29/17 at 23:02; Stop 01/30/17 at 23:01 Acetaminophen (Tylenol) 650 mg PRN Q4HRS PRN PO FEVER Last administered on 00:14; Start 01/29/17 at 23:15; Stop 01/30/17 at 23:14 Ibuprofen (Motrin) 600 mg PRN Q6HRS PRN PO FEVER Last administered on 01/30/17 03:27; Start 01/30/17 at 03:15 Acetaminophen (Tylenol) 650 mg PRN Q6HRS PRN PO FEVER; Start 01/30/17 at 08:45 Ondansetron HCl (Zofran) 4 mg PRN Q6HRS PRN IV NAUSEA/VOMITING; Start 01/30/17 at 08:45 Oxycodone/ Acetaminophen (Percocet 5/325) 1 tab PRN Q6HRS PRN PO PAIN; Start at 08:45 Phenazopyridine HCl (Pyridium) 200 mg PRN TID PRN PO BLADDER SPASM; Start at 08:45 Tamsulosin HCl (Flomax) 0.4 mg DAILY PO ; Start 01/30/17 at 09:00; Stop 01/30/17 at 09:00; Status DC Tamsulosin HCl 0.8 mg 0.8 mg DAILY PO ; Start 01/30/17 at 09:00 Doxycycline Hyclate/Dextrose (Doxycycline Hyclate) 100 ml @ 50 mls/hr Q12HR IV Last administered on 01/30/17t 10:23; Start 01/30/17 at 10:30 Active Scripts Active Bactrim Ds Tablet (Sulfamethoxazole/Trimethoprim) 1 Each Tablet 1 Tab PO BID Pyridium (Phenazopyridine Hcl) 200 Mg Tablet 200 Mg PO TID PRN Naproxen 375 Mg Tablet 375 Mg PO BID Percocet 5-325 Mg Tablet (Oxycodone/Acetaminophen) 1 Each Tablet 1 Tab PO PRN Q6HRS PRN Reported Cialis (Tadalafil) 5 Mg Tablet Vitamin D2 (Ergocalciferol (Vitamin D2)) 50,000 Unit Capsule Dutasteride 0.5 Mg Capsule Flomax (Tamsulosin Hcl) 0.4 Mg Cap.er.24h 1 Cap PO DAILY Propranolol Hcl 20 Mg Tablet Vitals/I & O Vital Sign - Last 24 Hours 01/29/17 01/29/17 01/29/17 01/29/17 16:56 18:34 20:07 23:30 Temp 98.0 98.0 Pulse 130 118 112 Resp 26 14 16 Pulse Ox 96 96 96 O2 Delivery Room Air Room Air 01/29/17 01/30/17 01/30/17 01/30/17 23:30 00:15 02:27 03:47 Temp 100.1 101.5 100.1 101.5 Pulse 118 126 Resp 22 18 B/P 147/93 144/88 Pulse Ox 95 96 96 91 O2 Delivery Room Air Room Air Room Air Room Air 01/30/17 01/30/17 01/30/17 01/30/17 05:30 06:12 06:42 07:00 Temp 98.7 98.8 98.7 98.8 Pulse 109 B/P 114/79 Pulse Ox 91 91 O2 Delivery Room Air Room Air 01/30/17 01/30/17 01/30/17 07:00 07:35 11:00 Temp 98.8 100.4 98.8 100.4 Pulse 109 92 Resp 20 20 B/P 114/79 98/57 Pulse Ox 92 93 O2 Delivery Room Air Room Air Room Air Intake and Output 01/29/17 01/29/17 01/30/17 15:00 23:00 07:00 Intake Total 1050 ml 1040 ml Output Total 700 ml Balance 1050 ml 340 ml MANUEL PATINO MD January 30, 2017 12:48
--- NOTE | 2017-01-30 13:00 | PDOC ---
PROGRESS NOTES Chief Complaint Chief Complaint 1. sepsis with 2 2. bl epidemitis and bl hydroceles 3. UTI with possible pyelo 4. BPH 5. CKD3 plan: renal, uro, id consult on cefepime, doxy as per ID US done fu ucx, bcx pain control ivf , keep churchill, increase flomax to 0.8mg daily dvt ppx History of Present Illness History of Present Illness abd pain better on Churchill has BPH, and h/o UTI , but not following with uro severe scrotum swelling Vitals Vitals Vital Signs Date Time Temp Pulse Resp B/P Pulse Ox O2 Delivery O2 Flow Rate FiO2 01/30/17 11:00 100.4 92 20 98/57 93 Room Air 100.4 Physical Exam Physical Exam severe scrotum swelling General: Alert, Oriented X3, Cooperative Heart: Regular rate, Normal S1 Lungs: Clear Abdomen: Normal bowel sounds, Soft, No tenderness, Other (CVA no tenderness) Extremities: No clubbing, No cyanosis Labs LABS Laboratory Tests Test 01/29/17 16:58 01/29/17 18:10 01/30/17 04:02 Urine Collection Type Unknown Urine Color Yellow Urine Clarity Turbid Urine pH 6.0 Urine Specific [place] 1.015 Urine Protein 100mg/dL (NEG-TRACE) Urine Glucose (UA) Negativemg/dL (NEG) Urine Ketones (Stick) Negativemg/dL (NEG) Urine Blood Large (NEG) Urine Nitrite Positive (NEG) Urine Bilirubin Negative (NEG) Urine Urobilinogen Dipstick 0.2mg/dL (0.2 mg/dL) Urine Leukocyte Esterase Large (NEG) Urine RBC >40/HPF (0-2) Urine WBC Tntc/HPF (0-4) Urine Bacteria Many/HPF (0-FEW) White Blood Count 16.1x10^3/uL (4.0-11.0) 20.9x10^3/uL (4.0-11.0) Red Blood Count 4.51x10^6/uL (4.30-5.70) 4.16x10^6/uL (4.30-5.70) Hemoglobin 13.6g/dL (13.0-17.5) 12.7g/dL (13.0-17.5) Hematocrit 40.7% (39.0-53.0) 37.7% (39.0-53.0) Mean Corpuscular Volume 90fL (79-100) 91fL (79-100) Mean Corpuscular Hemoglobin 30pg (25-35) 31pg (25-35) Mean Corpuscular Hemoglobin Concent 33g/dL (31-37) 34g/dL (31-37) Red Cell Distribution Width 14.4% (11.5-14.5) 14.1% (11.5-14.5) Platelet Count 319x10^3/uL (140-400) 296x10^3/uL (140-400) Neutrophils (%) (Auto) 75% (31-73) 83% (31-73) Lymphocytes (%) (Auto) 12% (24-48) 6% (24-48) Monocytes (%) (Auto) 12% (0-9) 11% (0-9) Eosinophils (%) (Auto) 0% (0-3) 0% (0-3) Basophils (%) (Auto) 0% (0-3) 0% (0-3) Neutrophils # (Auto) 12.1x10^3uL (1.8-7.7) 17.5x10^3uL (1.8-7.7) Lymphocytes # (Auto) 2.0x10^3/uL (1.0-4.8) 1.2x10^3/uL (1.0-4.8) Monocytes # (Auto) 1.9x10^3/uL (0.0-1.1) 2.2x10^3/uL (0.0-1.1) Eosinophils # (Auto) 0.0x10^3/uL (0.0-0.7) 0.0x10^3/uL (0.0-0.7) Basophils # (Auto) 0.1x10^3/uL (0.0-0.2) 0.1x10^3/uL (0.0-0.2) Sodium Level 132mmol/L (136-145) 132mmol/L (136-145) Potassium Level 3.9mmol/L (3.5-5.1) 3.5mmol/L (3.5-5.1) Chloride Level 99mmol/L (98-107) 99mmol/L (98-107) Carbon Dioxide Level 26mmol/L (21-32) 21mmol/L (21-32) Anion Gap 7 (6-14) 12 (6-14) Blood Urea Nitrogen 18mg/dL (8-26) 18mg/dL (8-26) Creatinine 1.5mg/dL (0.7-1.3) 1.5mg/dL (0.7-1.3) Estimated GFR (Cockcroft-Gault) 47.6 47.6 BUN/Creatinine Ratio 12 (6-20) Glucose Level 110mg/dL (70-99) 95mg/dL (70-99) Calcium Level 9.0mg/dL (8.5-10.1) 8.6mg/dL (8.5-10.1) Total Bilirubin 1.0mg/dL (0.2-1.0) Aspartate Amino Transf (AST/SGOT) 24U/L (15-37) Alanine Aminotransferase (ALT/SGPT) 46U/L (16-63) Alkaline Phosphatase 77U/L (46-116) Total Protein 8.1g/dL (6.4-8.2) Albumin 3.0g/dL (3.4-5.0) Albumin/Globulin Ratio 0.6 (1.0-1.7) Segmented Neutrophils % 77% (35-66) Band Neutrophils % 8% (0-9) Lymphocytes % 4% (24-48) Monocytes % 11% (0-10) Toxic Granulation Present Toxic Vacuolation Present Platelet Estimate Adequate (ADEQUATE) Review of Systems Review of Systems No fever, chills, sob or chest pain Assessment and Plan Assessmemt and Plan Problems Medical Problems: (1) Pyelonephritis Status: Acute (2) Urinary retention Status: Acute Problems: Comment Review of Relevant I have reviewed the following items cesar (where applicable) has been applied. Labs Laboratory Tests Test 01/29/17 16:58 01/29/17 18:10 01/30/17 04:02 Urine Collection Type Unknown Urine Color Yellow Urine Clarity Turbid Urine pH 6.0 Urine Specific [place] 1.015 Urine Protein 100mg/dL (NEG-TRACE) Urine Glucose (UA) Negativemg/dL (NEG) Urine Ketones (Stick) Negativemg/dL (NEG) Urine Blood Large (NEG) Urine Nitrite Positive (NEG) Urine Bilirubin Negative (NEG) Urine Urobilinogen Dipstick 0.2mg/dL (0.2 mg/dL) Urine Leukocyte Esterase Large (NEG) Urine RBC >40/HPF (0-2) Urine WBC Tntc/HPF (0-4) Urine Bacteria Many/HPF (0-FEW) White Blood Count 16.1x10^3/uL (4.0-11.0) 20.9x10^3/uL (4.0-11.0) Red Blood Count 4.51x10^6/uL (4.30-5.70) 4.16x10^6/uL (4.30-5.70) Hemoglobin 13.6g/dL (13.0-17.5) 12.7g/dL (13.0-17.5) Hematocrit 40.7% (39.0-53.0) 37.7% (39.0-53.0) Mean Corpuscular Volume 90fL (79-100) 91fL (79-100) Mean Corpuscular Hemoglobin 30pg (25-35) 31pg (25-35) Mean Corpuscular Hemoglobin Concent 33g/dL (31-37) 34g/dL (31-37) Red Cell Distribution Width 14.4% (11.5-14.5) 14.1% (11.5-14.5) Platelet Count 319x10^3/uL (140-400) 296x10^3/uL (140-400) Neutrophils (%) (Auto) 75% (31-73) 83% (31-73) Lymphocytes (%) (Auto) 12% (24-48) 6% (24-48) Monocytes (%) (Auto) 12% (0-9) 11% (0-9) Eosinophils (%) (Auto) 0% (0-3) 0% (0-3) Basophils (%) (Auto) 0% (0-3) 0% (0-3) Neutrophils # (Auto) 12.1x10^3uL (1.8-7.7) 17.5x10^3uL (1.8-7.7) Lymphocytes # (Auto) 2.0x10^3/uL (1.0-4.8) 1.2x10^3/uL (1.0-4.8) Monocytes # (Auto) 1.9x10^3/uL (0.0-1.1) 2.2x10^3/uL (0.0-1.1) Eosinophils # (Auto) 0.0x10^3/uL (0.0-0.7) 0.0x10^3/uL (0.0-0.7) Basophils # (Auto) 0.1x10^3/uL (0.0-0.2) 0.1x10^3/uL (0.0-0.2) Sodium Level 132mmol/L (136-145) 132mmol/L (136-145) Potassium Level 3.9mmol/L (3.5-5.1) 3.5mmol/L (3.5-5.1) Chloride Level 99mmol/L (98-107) 99mmol/L (98-107) Carbon Dioxide Level 26mmol/L (21-32) 21mmol/L (21-32) Anion Gap 7 (6-14) 12 (6-14) Blood Urea Nitrogen 18mg/dL (8-26) 18mg/dL (8-26) Creatinine 1.5mg/dL (0.7-1.3) 1.5mg/dL (0.7-1.3) Estimated GFR (Cockcroft-Gault) 47.6 47.6 BUN/Creatinine Ratio 12 (6-20) Glucose Level 110mg/dL (70-99) 95mg/dL (70-99) Calcium Level 9.0mg/dL (8.5-10.1) 8.6mg/dL (8.5-10.1) Total Bilirubin 1.0mg/dL (0.2-1.0) Aspartate Amino Transf (AST/SGOT) 24U/L (15-37) Alanine Aminotransferase (ALT/SGPT) 46U/L (16-63) Alkaline Phosphatase 77U/L (46-116) Total Protein 8.1g/dL (6.4-8.2) Albumin 3.0g/dL (3.4-5.0) Albumin/Globulin Ratio 0.6 (1.0-1.7) Segmented Neutrophils % 77% (35-66) Band Neutrophils % 8% (0-9) Lymphocytes % 4% (24-48) Monocytes % 11% (0-10) Toxic Granulation Present Toxic Vacuolation Present Platelet Estimate Adequate (ADEQUATE) Laboratory Tests Test 01/29/17 16:58 01/29/17 18:10 01/30/17 04:02 Urine Collection Type Unknown Urine Color Yellow Urine Clarity Turbid Urine pH 6.0 Urine Specific [place] 1.015 Urine Protein 100mg/dL (NEG-TRACE) Urine Glucose (UA) Negativemg/dL (NEG) Urine Ketones (Stick) Negativemg/dL (NEG) Urine Blood Large (NEG) Urine Nitrite Positive (NEG) Urine Bilirubin Negative (NEG) Urine Urobilinogen Dipstick 0.2mg/dL (0.2 mg/dL) Urine Leukocyte Esterase Large (NEG) Urine RBC >40/HPF (0-2) Urine WBC Tntc/HPF (0-4) Urine Bacteria Many/HPF (0-FEW) White Blood Count 16.1x10^3/uL (4.0-11.0) 20.9x10^3/uL (4.0-11.0) Red Blood Count 4.51x10^6/uL (4.30-5.70) 4.16x10^6/uL (4.30-5.70) Hemoglobin 13.6g/dL (13.0-17.5) 12.7g/dL (13.0-17.5) Hematocrit 40.7% (39.0-53.0) 37.7% (39.0-53.0) Mean Corpuscular Volume 90fL (79-100) 91fL (79-100) Mean Corpuscular Hemoglobin 30pg (25-35) 31pg (25-35) Mean Corpuscular Hemoglobin Concent 33g/dL (31-37) 34g/dL (31-37) Red Cell Distribution Width 14.4% (11.5-14.5) 14.1% (11.5-14.5) Platelet Count 319x10^3/uL (140-400) 296x10^3/uL (140-400) Neutrophils (%) (Auto) 75% (31-73) 83% (31-73) Lymphocytes (%) (Auto) 12% (24-48) 6% (24-48) Monocytes (%) (Auto) 12% (0-9) 11% (0-9) Eosinophils (%) (Auto) 0% (0-3) 0% (0-3) Basophils (%) (Auto) 0% (0-3) 0% (0-3) Neutrophils # (Auto) 12.1x10^3uL (1.8-7.7) 17.5x10^3uL (1.8-7.7) Lymphocytes # (Auto) 2.0x10^3/uL (1.0-4.8) 1.2x10^3/uL (1.0-4.8) Monocytes # (Auto) 1.9x10^3/uL (0.0-1.1) 2.2x10^3/uL (0.0-1.1) Eosinophils # (Auto) 0.0x10^3/uL (0.0-0.7) 0.0x10^3/uL (0.0-0.7) Basophils # (Auto) 0.1x10^3/uL (0.0-0.2) 0.1x10^3/uL (0.0-0.2) Sodium Level 132mmol/L (136-145) 132mmol/L (136-145) Potassium Level 3.9mmol/L (3.5-5.1) 3.5mmol/L (3.5-5.1) Chloride Level 99mmol/L (98-107) 99mmol/L (98-107) Carbon Dioxide Level 26mmol/L (21-32) 21mmol/L (21-32) Anion Gap 7 (6-14) 12 (6-14) Blood Urea Nitrogen 18mg/dL (8-26) 18mg/dL (8-26) Creatinine 1.5mg/dL (0.7-1.3) 1.5mg/dL (0.7-1.3) Estimated GFR (Cockcroft-Gault) 47.6 47.6 BUN/Creatinine Ratio 12 (6-20) Glucose Level 110mg/dL (70-99) 95mg/dL (70-99) Calcium Level 9.0mg/dL (8.5-10.1) 8.6mg/dL (8.5-10.1) Total Bilirubin 1.0mg/dL (0.2-1.0) Aspartate Amino Transf (AST/SGOT) 24U/L (15-37) Alanine Aminotransferase (ALT/SGPT) 46U/L (16-63) Alkaline Phosphatase 77U/L (46-116) Total Protein 8.1g/dL (6.4-8.2) Albumin 3.0g/dL (3.4-5.0) Albumin/Globulin Ratio 0.6 (1.0-1.7) Segmented Neutrophils % 77% (35-66) Band Neutrophils % 8% (0-9) Lymphocytes % 4% (24-48) Monocytes % 11% (0-10) Toxic Granulation Present Toxic Vacuolation Present Platelet Estimate Adequate (ADEQUATE) Medications Current Medications Ketorolac Tromethamine 10 mg 10 mg 1X ONCE IV Last administered on 01/29/17 18 :10; Start 01/29/17 at 18:00; Stop 01/29/17 at 18:01; Status DC Sodium Chloride 1,000 ml @ 1,000 mls/hr 1X ONCE IV Last administered on 18:10; Start 01/29/17 at 18:00; Stop 01/29/17 at 18:59; Status DC Cefepime HCl/ Sodium Chloride (Maxipime/Iv Sodium Chloride 0.9% 50ml) 50 ml @ 100 mls/hr Q8HRS IV Last administered on 01/30/17 06:03; Start 01/30/17 at 06:00 Fentanyl Citrate (Fentanyl 2ml Vial) 25 mcg PRN Q15MIN PRN IV PAIN GREATER THAN 3/10; Start 01/29/17 at 20:00; Stop 01/30/17 at 00:00; Status DC Ondansetron HCl 4 mg 4 mg 1X ONCE IV ; Start 01/29/17 at 20:00; Stop 01/29/17 at 20:01; Status DC Cefepime HCl/ Sodium Chloride (Maxipime/Iv Sodium Chloride 0.9% 50ml) 50 ml @ 100 mls/hr 1X ONCE IV Last administered on 01/29/17 20:15; Start 01/29/17 at 20 :15; Stop 01/29/17 at 20:44; Status DC Ondansetron HCl (Zofran) 4 mg PRN Q8HRS PRN IV NAUSEA/VOMITING; Start 01/29/17 at 23:15; Stop 01/30/17 at 23:14 Morphine Sulfate 4 mg 4 mg PRN Q2HR PRN IV SEVERE PAIN Last administered on 01/30 06:12; Start 01/29/17 at 23:15; Stop 01/30/17 at 23:14 Sodium Chloride (Iv Sodium Chloride 0.9% 1000ml Bag) 1,000 ml @ 125 mls/hr Q8H IV Last administered on 01/30/17 06:04; Start 01/29/17 at 23:02; Stop 01/30/17 at 23:01 Acetaminophen (Tylenol) 650 mg PRN Q4HRS PRN PO FEVER Last administered on 00:14; Start 01/29/17 at 23:15; Stop 01/30/17 at 23:14 Ibuprofen (Motrin) 600 mg PRN Q6HRS PRN PO FEVER Last administered on 01/30/17 03:27; Start 01/30/17 at 03:15 Acetaminophen (Tylenol) 650 mg PRN Q6HRS PRN PO FEVER; Start 01/30/17 at 08:45 Ondansetron HCl (Zofran) 4 mg PRN Q6HRS PRN IV NAUSEA/VOMITING; Start 01/30/17 at 08:45 Oxycodone/ Acetaminophen (Percocet 5/325) 1 tab PRN Q6HRS PRN PO PAIN; Start at 08:45 Phenazopyridine HCl (Pyridium) 200 mg PRN TID PRN PO BLADDER SPASM; Start at 08:45 Tamsulosin HCl (Flomax) 0.4 mg DAILY PO ; Start 01/30/17 at 09:00; Stop 01/30/17 at 09:00; Status DC Tamsulosin HCl 0.8 mg 0.8 mg DAILY PO ; Start 01/30/17 at 09:00 Doxycycline Hyclate/Dextrose (Doxycycline Hyclate) 100 ml @ 50 mls/hr Q12HR IV Last administered on 01/30/17 10:23; Start 01/30/17 at 10:30 Active Scripts Active Bactrim Ds Tablet (Sulfamethoxazole/Trimethoprim) 1 Each Tablet 1 Tab PO BID Pyridium (Phenazopyridine Hcl) 200 Mg Tablet 200 Mg PO TID PRN Naproxen 375 Mg Tablet 375 Mg PO BID Percocet 5-325 Mg Tablet (Oxycodone/Acetaminophen) 1 Each Tablet 1 Tab PO PRN Q6HRS PRN Reported Cialis (Tadalafil) 5 Mg Tablet Vitamin D2 (Ergocalciferol (Vitamin D2)) 50,000 Unit Capsule Dutasteride 0.5 Mg Capsule Flomax (Tamsulosin Hcl) 0.4 Mg Cap.er.24h 1 Cap PO DAILY Propranolol Hcl 20 Mg Tablet Vitals/I & O Vital Sign - Last 24 Hours 01/29/17 01/29/17 01/29/17 01/29/17 16:56 18:34 20:07 23:30 Temp 98.0 98.0 Pulse 130 118 112 Resp 26 14 16 Pulse Ox 96 96 96 O2 Delivery Room Air Room Air 01/29/17 01/30/17 01/30/17 01/30/17 23:30 00:15 02:27 03:47 Temp 100.1 101.5 100.1 101.5 Pulse 118 126 Resp 22 18 B/P 147/93 144/88 Pulse Ox 95 96 96 91 O2 Delivery Room Air Room Air Room Air Room Air 01/30/17 01/30/17 01/30/17 01/30/17 05:30 06:12 06:42 07:00 Temp 98.7 98.8 98.7 98.8 Pulse 109 B/P 114/79 Pulse Ox 91 91 O2 Delivery Room Air Room Air 01/30/17 01/30/17 01/30/17 07:00 07:35 11:00 Temp 98.8 100.4 98.8 100.4 Pulse 109 92 Resp 20 20 B/P 114/79 98/57 Pulse Ox 92 93 O2 Delivery Room Air Room Air Room Air Intake and Output 01/29/17 01/29/17 01/30/17 15:00 23:00 07:00 Intake Total 1050 ml 1040 ml Output Total 700 ml Balance 1050 ml 340 ml TASHA APODACA MD January 30, 2017 12:59
[2017-01-30] MEDS: MORPHINE SULFATE 2 MG/ML DISP.SYRIN. IV PRN (14:21)
[2017-01-30 15:00] VITALS: BP 111/65
--- NOTE | 2017-01-30 17:44 | PDOC2 ---
CONSULT Date of Consult Date of Consult DATE: 01/30/17 TIME: 17:35 Reason for Consult Reason for Consult: CKD III Referring Physician Referring Physician: Dr Aranda and Dr Braun Identification/Chief Complaint Chief Complaint scrotal swelling Problems: Source Source: Chart review, Patient History of Present Illness Reason for Visit: as dictated Past Medical History Cardiovascular: No pertinent hx Pulmonary: No pertinent hx CENTRAL NERVOUS SYSTEM: Other GI: Other Heme/Onc: No pertinent hx Hepatobiliary: No pertinent hx Psych: No pertinent hx Musculoskeletal: Osteoarthritis Rheumatologic: No pertinent hx Infectious disease: No pertinent hx Renal/: Chronic renal insuff, UTI, Benign prostatic enlarg., Other Endocrine: No pertinent hx Past Surgical History Past Surgical History: Tonsillectomy, Other Family History Family History: Cancer, Heart Disease Social History ALCOHOL: none Drugs: None Lives: Alone Current Problem List Problem List Problems Medical Problems: (1) Pyelonephritis Status: Acute (2) Urinary retention Status: Acute Current Medications Current Medications Current Medications Ketorolac Tromethamine 10 mg 10 mg 1X ONCE IV Last administered on 01/29/17 18 :10; Start 01/29/17 at 18:00; Stop 01/29/17 at 18:01; Status DC Sodium Chloride 1,000 ml @ 1,000 mls/hr 1X ONCE IV Last administered on 18:10; Start 01/29/17 at 18:00; Stop 01/29/17 at 18:59; Status DC Cefepime HCl/ Sodium Chloride (Maxipime/Iv Sodium Chloride 0.9% 50ml) 50 ml @ 100 mls/hr Q8HRS IV Last administered on 01/30/17 14:21; Start 01/30/17 at 06:00 Fentanyl Citrate (Fentanyl 2ml Vial) 25 mcg PRN Q15MIN PRN IV PAIN GREATER THAN 3/10; Start 01/29/17 at 20:00; Stop 01/30/17 at 00:00; Status DC Ondansetron HCl 4 mg 4 mg 1X ONCE IV ; Start 01/29/17 at 20:00; Stop 01/29/17 at 20:01; Status DC Cefepime HCl/ Sodium Chloride (Maxipime/Iv Sodium Chloride 0.9% 50ml) 50 ml @ 100 mls/hr 1X ONCE IV Last administered on 01/29/17 20:15; Start 01/29/17 at 20 :15; Stop 01/29/17 at 20:44; Status DC Ondansetron HCl (Zofran) 4 mg PRN Q8HRS PRN IV NAUSEA/VOMITING; Start 01/29/17 at 23:15; Stop 01/30/17 at 23:14 Morphine Sulfate 4 mg 4 mg PRN Q2HR PRN IV SEVERE PAIN Last administered on 01/30 17:02; Start 01/29/17 at 23:15; Stop 01/30/17 at 23:14 Sodium Chloride (Iv Sodium Chloride 0.9% 1000ml Bag) 1,000 ml @ 125 mls/hr Q8H IV Last administered on 01/30/17 06:04; Start 01/29/17 at 23:02; Stop 01/30/17 at 13:29; Status DC Acetaminophen (Tylenol) 650 mg PRN Q4HRS PRN PO FEVER Last administered on 00:14; Start 01/29/17 at 23:15; Stop 01/30/17 at 23:14 Ibuprofen (Motrin) 600 mg PRN Q6HRS PRN PO FEVER Last administered on 01/30/17 15:07; Start 01/30/17 at 03:15 Acetaminophen (Tylenol) 650 mg PRN Q6HRS PRN PO FEVER; Start 01/30/17 at 08:45 Ondansetron HCl (Zofran) 4 mg PRN Q6HRS PRN IV NAUSEA/VOMITING; Start 01/30/17 at 08:45 Oxycodone/ Acetaminophen (Percocet 5/325) 1 tab PRN Q6HRS PRN PO PAIN; Start at 08:45 Phenazopyridine HCl (Pyridium) 200 mg PRN TID PRN PO BLADDER SPASM; Start at 08:45 Tamsulosin HCl (Flomax) 0.4 mg DAILY PO ; Start 01/30/17 at 09:00; Stop 01/30/17 at 09:00; Status DC Tamsulosin HCl 0.8 mg 0.8 mg DAILY PO ; Start 01/30/17 at 09:00 Doxycycline Hyclate 100 mg/ Dextrose 100 ml @ 50 mls/hr Q12HR IV Last administered on 5/2/17at 10:23; Start 01/30/17 at 10:30 Sodium Chloride (Iv Sodium Chloride 0.9% 1000ml Bag) 1,000 ml @ 75 mls/hr [id number] IV ; Start 01/30/17 at 13:00 Morphine Sulfate 2 mg PRN Q2HR PRN IV PAIN Last administered on 01/30/17t 14:21 ; Start 01/30/17 at 13:00 Morphine Sulfate 4 mg PRN Q2HR PRN IV PAIN; Start 01/30/17 at 13:00 Active Scripts Active Bactrim Ds Tablet (Sulfamethoxazole/Trimethoprim) 1 Each Tablet 1 Tab PO BID Pyridium (Phenazopyridine Hcl) 200 Mg Tablet 200 Mg PO TID PRN Naproxen 375 Mg Tablet 375 Mg PO BID Percocet 5-325 Mg Tablet (Oxycodone/Acetaminophen) 1 Each Tablet 1 Tab PO PRN Q6HRS PRN Reported Cialis (Tadalafil) 5 Mg Tablet Vitamin D2 (Ergocalciferol (Vitamin D2)) 50,000 Unit Capsule Dutasteride 0.5 Mg Capsule Flomax (Tamsulosin Hcl) 0.4 Mg Cap.er.24h 1 Cap PO DAILY Propranolol Hcl 20 Mg Tablet Allergies Allergies: Coded Allergies: ceftriaxone (Verified Allergy, Intermediate, MUSCLE SPASMS, 01/29/17) ciprofloxacin (Verified Allergy, Intermediate, Palpitations, 05/02/16) muscle spasms ROS Review of System as outlined in HPI otherwise -ve Physical Exam Physical Exam GEN: Awake, Oriented x 3, In no distress EYES: Vision Unchanged, Conjunctiva Normal EN: No EN Drainage, Mucous Membranes moist NECK: no JVD, no JVP, Supple, no Thyromegaly CVS: S1S2, no Murmur, No Gallop, No Rub,no Edema RESP: no Rales, no Rhonchi,no Acc. Muscle Use GI: BS + ve, NO Bruit, Non Tender, Non Distended : no CVA tenderness, on Suprapubic Tenderness Vital Signs Vital Signs Date Time Temp Pulse Resp B/P Pulse Ox O2 Delivery O2 Flow Rate FiO2 01/30/17 17:32 Room Air 01/30/17 17:00 101.0 101.0 01/30/17 15:00 127 24 111/65 90 Assessment & Plan DEZ - D/c NSIADs and reval. Current FLuid and E-lyte status does not necessitate emergent need for Dialysis. Will re-evaluate for Dialysis in am CKD III - cannot be ruled out Discussed Plan of Care and prognosis etc. at length with family. Labs Labs Laboratory Tests Test 01/29/17 16:58 01/29/17 18:10 01/30/17 04:02 Urine Collection Type Unknown Urine Color Yellow Urine Clarity Turbid Urine pH 6.0 Urine Specific [place] 1.015 Urine Protein 100mg/dL (NEG-TRACE) Urine Glucose (UA) Negativemg/dL (NEG) Urine Ketones (Stick) Negativemg/dL (NEG) Urine Blood Large (NEG) Urine Nitrite Positive (NEG) Urine Bilirubin Negative (NEG) Urine Urobilinogen Dipstick 0.2mg/dL (0.2 mg/dL) Urine Leukocyte Esterase Large (NEG) Urine RBC >40/HPF (0-2) Urine WBC Tntc/HPF (0-4) Urine Bacteria Many/HPF (0-FEW) White Blood Count 16.1x10^3/uL (4.0-11.0) 20.9x10^3/uL (4.0-11.0) Red Blood Count 4.51x10^6/uL (4.30-5.70) 4.16x10^6/uL (4.30-5.70) Hemoglobin 13.6g/dL (13.0-17.5) 12.7g/dL (13.0-17.5) Hematocrit 40.7% (39.0-53.0) 37.7% (39.0-53.0) Mean Corpuscular Volume 90fL (79-100) 91fL (79-100) Mean Corpuscular Hemoglobin 30pg (25-35) 31pg (25-35) Mean Corpuscular Hemoglobin Concent 33g/dL (31-37) 34g/dL (31-37) Red Cell Distribution Width 14.4% (11.5-14.5) 14.1% (11.5-14.5) Platelet Count 319x10^3/uL (140-400) 296x10^3/uL (140-400) Neutrophils (%) (Auto) 75% (31-73) 83% (31-73) Lymphocytes (%) (Auto) 12% (24-48) 6% (24-48) Monocytes (%) (Auto) 12% (0-9) 11% (0-9) Eosinophils (%) (Auto) 0% (0-3) 0% (0-3) Basophils (%) (Auto) 0% (0-3) 0% (0-3) Neutrophils # (Auto) 12.1x10^3uL (1.8-7.7) 17.5x10^3uL (1.8-7.7) Lymphocytes # (Auto) 2.0x10^3/uL (1.0-4.8) 1.2x10^3/uL (1.0-4.8) Monocytes # (Auto) 1.9x10^3/uL (0.0-1.1) 2.2x10^3/uL (0.0-1.1) Eosinophils # (Auto) 0.0x10^3/uL (0.0-0.7) 0.0x10^3/uL (0.0-0.7) Basophils # (Auto) 0.1x10^3/uL (0.0-0.2) 0.1x10^3/uL (0.0-0.2) Sodium Level 132mmol/L (136-145) 132mmol/L (136-145) Potassium Level 3.9mmol/L (3.5-5.1) 3.5mmol/L (3.5-5.1) Chloride Level 99mmol/L (98-107) 99mmol/L (98-107) Carbon Dioxide Level 26mmol/L (21-32) 21mmol/L (21-32) Anion Gap 7 (6-14) 12 (6-14) Blood Urea Nitrogen 18mg/dL (8-26) 18mg/dL (8-26) Creatinine 1.5mg/dL (0.7-1.3) 1.5mg/dL (0.7-1.3) Estimated GFR (Cockcroft-Gault) 47.6 47.6 BUN/Creatinine Ratio 12 (6-20) Glucose Level 110mg/dL (70-99) 95mg/dL (70-99) Calcium Level 9.0mg/dL (8.5-10.1) 8.6mg/dL (8.5-10.1) Total Bilirubin 1.0mg/dL (0.2-1.0) Aspartate Amino Transf (AST/SGOT) 24U/L (15-37) Alanine Aminotransferase (ALT/SGPT) 46U/L (16-63) Alkaline Phosphatase 77U/L (46-116) Total Protein 8.1g/dL (6.4-8.2) Albumin 3.0g/dL (3.4-5.0) Albumin/Globulin Ratio 0.6 (1.0-1.7) Segmented Neutrophils % 77% (35-66) Band Neutrophils % 8% (0-9) Lymphocytes % 4% (24-48) Monocytes % 11% (0-10) Toxic Granulation Present Toxic Vacuolation Present Platelet Estimate Adequate (ADEQUATE) Laboratory Tests Test 01/29/17 18:10 01/30/17 04:02 White Blood Count 16.1x10^3/uL (4.0-11.0) 20.9x10^3/uL (4.0-11.0) Red Blood Count 4.51x10^6/uL (4.30-5.70) 4.16x10^6/uL (4.30-5.70) Hemoglobin 13.6g/dL (13.0-17.5) 12.7g/dL (13.0-17.5) Hematocrit 40.7% (39.0-53.0) 37.7% (39.0-53.0) Mean Corpuscular Volume 90fL (79-100) 91fL (79-100) Mean Corpuscular Hemoglobin 30pg (25-35) 31pg (25-35) Mean Corpuscular Hemoglobin Concent 33g/dL (31-37) 34g/dL (31-37) Red Cell Distribution Width 14.4% (11.5-14.5) 14.1% (11.5-14.5) Platelet Count 319x10^3/uL (140-400) 296x10^3/uL (140-400) Neutrophils (%) (Auto) 75% (31-73) 83% (31-73) Lymphocytes (%) (Auto) 12% (24-48) 6% (24-48) Monocytes (%) (Auto) 12% (0-9) 11% (0-9) Eosinophils (%) (Auto) 0% (0-3) 0% (0-3) Basophils (%) (Auto) 0% (0-3) 0% (0-3) Neutrophils # (Auto) 12.1x10^3uL (1.8-7.7) 17.5x10^3uL (1.8-7.7) Lymphocytes # (Auto) 2.0x10^3/uL (1.0-4.8) 1.2x10^3/uL (1.0-4.8) Monocytes # (Auto) 1.9x10^3/uL (0.0-1.1) 2.2x10^3/uL (0.0-1.1) Eosinophils # (Auto) 0.0x10^3/uL (0.0-0.7) 0.0x10^3/uL (0.0-0.7) Basophils # (Auto) 0.1x10^3/uL (0.0-0.2) 0.1x10^3/uL (0.0-0.2) Sodium Level 132mmol/L (136-145) 132mmol/L (136-145) Potassium Level 3.9mmol/L (3.5-5.1) 3.5mmol/L (3.5-5.1) Chloride Level 99mmol/L (98-107) 99mmol/L (98-107) Carbon Dioxide Level 26mmol/L (21-32) 21mmol/L (21-32) Anion Gap 7 (6-14) 12 (6-14) Blood Urea Nitrogen 18mg/dL (8-26) 18mg/dL (8-26) Creatinine 1.5mg/dL (0.7-1.3) 1.5mg/dL (0.7-1.3) Estimated GFR (Cockcroft-Gault) 47.6 47.6 BUN/Creatinine Ratio 12 (6-20) Glucose Level 110mg/dL (70-99) 95mg/dL (70-99) Calcium Level 9.0mg/dL (8.5-10.1) 8.6mg/dL (8.5-10.1) Total Bilirubin 1.0mg/dL (0.2-1.0) Aspartate Amino Transf (AST/SGOT) 24U/L (15-37) Alanine Aminotransferase (ALT/SGPT) 46U/L (16-63) Alkaline Phosphatase 77U/L (46-116) Total Protein 8.1g/dL (6.4-8.2) Albumin 3.0g/dL (3.4-5.0) Albumin/Globulin Ratio 0.6 (1.0-1.7) Segmented Neutrophils % 77% (35-66) Band Neutrophils % 8% (0-9) Lymphocytes % 4% (24-48) Monocytes % 11% (0-10) Toxic Granulation Present Toxic Vacuolation Present Platelet Estimate Adequate (ADEQUATE) Images Images The right kidney measures 13.1 x 5.3 x 4.7 cm and appears normal. There is no hydronephrosis or mass. The left kidney measures 11.6 x 4.3 x 5 cm and also appears normal showing no evidence of hydronephrosis or mass. Patient has a Pérez catheter in the urinary bladder. The urinary bladder, as a result, is collapsed and poorly evaluated with ultrasound. IMPRESSION: Normal morphologic appearance of the kidneys MADDI BLANCO MD January 30, 2017 17:44
[2017-01-30 19:15] VITALS: BP 90/62
[2017-01-30 23:34] VITALS: BP 90/58
--- NOTE | 2017-01-31 00:16 | CONS ---
DATE OF CONSULTATION: 01/30/2017 LOCATION: The patient is in room 410. HISTORY OF PRESENT ILLNESS: The patient is a very pleasant 61-year-old white male with history of urinary retention, pyelonephritis and scrotal swelling and tenderness. The patient has a history of kidney stones in the past. He had had stones treated by a urologist in [place] this past year. He has had recurrent UTIs, has history of BPH and urinary retention. He is on Flomax and Proscar by his urologist from [place]. He came in with urinary retention and fever, elevated white count and elevated creatinine. The patient now has Pérez catheter. Urology was consulted. PAST MEDICAL HISTORY: The patient with prior history of urinary retention and ureteral calculi. PAST SURGICAL HISTORY: He has a history of tonsillectomy and multiple orthopedic procedures. ALLERGIES: HE HAS ALLERGY TO CIPRO. LABORATORY DATA: Creatinine is 1.5. White count is 20.9. Urine showed nitrite positive, greater than 40 red cells, too numerous to count white cells, many bacteria. PHYSICAL EXAMINATION: ABDOMEN: The patient with tenderness in both flanks and abdomen. GENITOURINARY: He has a Pérez catheter to gravity drainage. Scrotum is edematous and tender. Skin appears viable. RECTAL: Good sphincter tone. Prostate smooth, nontender without nodules, overall size 30 grams. ASSESSMENT: Urosepsis. PLAN: ____ ID and Renal being consulted. We will get scrotal and renal ultrasound on the patient. ____ scrotal elevation and then proceed accordingly. I certainly appreciate being allowed to participate in this patient's care. MANUEL PATINO MD DR: KAREN/juliet JOB#: [id number] / [id number]
--- NOTE | 2017-01-31 01:10 | CONS ---
DATE OF CONSULTATION: 01/30/2017 REQUESTING PHYSICIAN: Dr. Braun. REASON FOR CONSULTATION: Fever, leukocytosis, possible pyelonephritis and epididymo-orchitis. HISTORY OF PRESENT ILLNESS: This is a 61-year-old gentleman who has had problems with kidney stones in the past and urethral stone which had been removed, who comes in with scrotal swelling and pain that has been going on for 2 or 3 days. The patient had not urinated for 2 days. The patient started running fever and some flank pain and decided to come in. The patient denies any nausea, vomiting, or diarrhea; denies any chest pain, denied any urinary drainage recently or burning with urination. The patient is sexually active with girlfriend, and denies any multiple sexual partners. PAST MEDICAL HISTORY: Positive for enlarged prostate. The patient has had kidney stones with ureteral stent done. The patient has had MSSA bacteremia last year and multiple orthopedic surgeries done. SOCIAL HISTORY: Positive for smoking, negative for alcohol use or drug use. ALLERGIES: LISTED ALLERGIC TO CIPRO AND CEFTRIAXONE, ALTHOUGH HE HAS BEEN TOLERATING CEFEPIME WITHOUT ANY PROBLEM. CURRENT MEDICATIONS: The patient is on cefepime. REVIEW OF SYSTEMS: As per HPI, all other systems reviewed are negative. PHYSICAL EXAMINATION: GENERAL: Alert and oriented gentleman, not in any distress. VITAL SIGNS: Stable with a T-max 101.5. HEENT: Anicteric. NECK: Supple, no JVP, no lymphadenopathy. LUNGS: Clear. HEART: S1, S2 regular. ABDOMEN: Benign. EXTREMITIES: No edema or cyanosis. SKIN: Unremarkable. NEUROLOGIC: The patient is neurologically intact. Scrotum is significantly enlarged with some erythema, but very tender to touch as well as the testes are tender to touch. NEUROLOGIC: The patient is neurologically intact. LABORATORY DATA: White count is 20,000. BUN 18 and creatinine 1.5. Urinalysis showed too numerous to count wbc more than 40 rbc. Cultures are pending. X-ray and ultrasound has been ordered, but is pending. IMPRESSION: 1. Fever and leukocytosis. 2. Scrotal swelling and pain. The patient has epididymo-orchitis. 3. Urinary tract infection with possible pyelonephritis. 4. History of kidney stones. RECOMMENDATIONS: Continue cefepime, add doxycycline; supportive care. We will check cultures and adjust and we will continue to follow. Thank you very much, Dr. Braun, for giving me the opportunity to participate in this patient's care. KISHOR BLANCO MD DR: SÁNCHEZ/juliet JOB#: [id number] / [id number]
--- NOTE | 2017-01-31 02:23 | CONS ---
DATE OF CONSULTATION: HISTORY OF PRESENT ILLNESS: The patient is a 61-year-old gentleman with nausea, vomiting and flank pain who presented to the ER for further evaluation. He was initially felt to have pyelonephritis, he was started on antibiotics. He has had previous pyelonephritis. Also, he was felt to have chronic renal insufficiency, which he is not aware of. His creatinines in 2016 were running about 1.4-1.6; however, it did come down to 1.2 in the past. He was on Bactrim as well as on naproxen at home for his pain. FAMILY HISTORY: Positive for diabetes. PAST MEDICAL HISTORY: Positive for pyelonephritis, essential tremors, tonsillectomy, cholecystectomy, some form of testicular surgery, previous kidney stones, issues with urinary retention, back pain, DJD, previous tobaccoism, hepatitis B in the 90s. SOCIAL HISTORY: . Does not smoke, drink or take drugs that he is aware of. REVIEW OF SYSTEMS: Denies nausea, vomiting. He did have fevers, continues to have fevers. For rest of details, see electronic records. MADDI BLANCO MD DR: PORTIA/juliet JOB#: [id number] / [id number]
[2017-01-31] MEDS: MORPHINE SULFATE 4 MG/ML DISP.SYRIN. IV PRN ×3 (02:46→08:57)
[2017-01-31 03:36] VITALS: BP 100/66
[2017-01-31 04:41] LABS: BASO % 0 % (0-3); EOS % 0 % (0-3); HEMATOCRIT 34.5 % (39.0-53.0); HEMOGLOBIN 11.5 g/dL (13.0-17.5); LYMPH # 1.5 x10^3/uL (1.0-4.8); LYMPH % 8 % (24-48); MEAN CORPUSCULAR HEMOGLOBIN 30 pg (25-35); MEAN CORPUSCULAR HGB CONC 33 g/dL (31-37); MEAN CORPUSCULAR VOLUME 91 fL (79-100); MONO % 8 % (0-9); NEUT % 84 % (31-73); PLATELET COUNT 231 x10^3/uL (140-400); RED BLOOD COUNT 3.78 x10^6/uL (4.30-5.70); RED CELL DISTRIBUTION WIDTH 14.4 % (11.5-14.5); WHITE BLOOD COUNT 19.8 x10^3/uL (4.0-11.0)
[2017-01-31 05:04] LABS: CREATININE 1.4 mg/dL (0.7-1.3); GFR 51.5; POTASSIUM 3.3 mmol/L (3.5-5.1)
[2017-01-31] MEDS: CEFEPIME HCL 1 GM in IV NORMAL SALINE 50ML 50 ML IV SCH ×3 (06:02→22:53)
[2017-01-31] MEDS: IV NORMAL SALINE 1000ML BAG 1,000 ML IV SCH ×2 (06:03)
[2017-01-31 07:00] VITALS: BP 112/71
[2017-01-31] MEDS: MORPHINE SULFATE 2 MG/ML DISP.SYRIN. IV PRN ×3 (07:02→21:06)
[2017-01-31] MEDS: TAMSULOSIN 0.4 MG CAP.ER.24H. PO SCH (08:57)
[2017-01-31] MEDS: DOXYCYCLINE HYCLATE 100 MG in IV DEXTROSE 5% 100 ML IV SCH ×2 (08:58→21:02)
--- NOTE | 2017-01-31 09:12 | PDOC ---
PROGRESS NOTES Subjective Subjective Pt. feeling a little better today Objective Objective Vital Signs Date Time Temp Pulse Resp B/P Pulse Ox O2 Delivery O2 Flow Rate FiO2 01/31/17 08:57 Room Air 01/31/17 07:02 94 01/31/17 07:00 99.3 98 22 112/71 99.3 Intake and Output 01/31/17 07:00 Intake Total 1225 ml Output Total 2000 ml Balance -775 ml Intake Oral 300 ml IV Total 925 ml Output Urine Total 2000 ml Physical Exam Physical Exam churchill in place urine yellow scrotal swelling slightly improved Plan Plan of Care churchill scrotal elevation Abs per ID Problems Medical Problems: (1) Pyelonephritis Status: Acute (2) Urinary retention Status: Acute Comment Review of Relevant I have reviewed the following items cesar (where applicable) has been applied. Labs Laboratory Tests Test 01/29/17 16:58 01/29/17 18:10 01/30/17 04:02 01/31/17 03:20 Urine Collection Type Unknown Urine Color Yellow Urine Clarity Turbid Urine pH 6.0 Urine Specific [place] 1.015 Urine Protein 100mg/dL (NEG-TRACE) Urine Glucose (UA) Negativemg/dL (NEG) Urine Ketones (Stick) Negativemg/dL (NEG) Urine Blood Large (NEG) Urine Nitrite Positive (NEG) Urine Bilirubin Negative (NEG) Urine Urobilinogen Dipstick 0.2mg/dL (0.2 mg/dL) Urine Leukocyte Esterase Large (NEG) Urine RBC >40/HPF (0-2) Urine WBC Tntc/HPF (0-4) Urine Bacteria Many/HPF (0-FEW) White Blood Count 16.1x10^3/uL (4.0-11.0) 20.9x10^3/uL (4.0-11.0) 19.8x10^3/uL (4.0-11.0) Red Blood Count 4.51x10^6/uL (4.30-5.70) 4.16x10^6/uL (4.30-5.70) 3.78x10^6/uL (4.30-5.70) Hemoglobin 13.6g/dL (13.0-17.5) 12.7g/dL (13.0-17.5) 11.5g/dL (13.0-17.5) Hematocrit 40.7% (39.0-53.0) 37.7% (39.0-53.0) 34.5% (39.0-53.0) Mean Corpuscular Volume 90fL (79-100) 91fL (79-100) 91fL (79-100) Mean Corpuscular Hemoglobin 30pg (25-35) 31pg (25-35) 30pg (25-35) Mean Corpuscular Hemoglobin Concent 33g/dL (31-37) 34g/dL (31-37) 33g/dL (31-37) Red Cell Distribution Width 14.4% (11.5-14.5) 14.1% (11.5-14.5) 14.4% (11.5-14.5) Platelet Count 319x10^3/uL (140-400) 296x10^3/uL (140-400) 231x10^3/uL (140-400) Neutrophils (%) (Auto) 75% (31-73) 83% (31-73) 84% (31-73) Lymphocytes (%) (Auto) 12% (24-48) 6% (24-48) 8% (24-48) Monocytes (%) (Auto) 12% (0-9) 11% (0-9) 8% (0-9) Eosinophils (%) (Auto) 0% (0-3) 0% (0-3) 0% (0-3) Basophils (%) (Auto) 0% (0-3) 0% (0-3) 0% (0-3) Neutrophils # (Auto) 12.1x10^3uL (1.8-7.7) 17.5x10^3uL (1.8-7.7) 16.6x10^3uL (1.8-7.7) Lymphocytes # (Auto) 2.0x10^3/uL (1.0-4.8) 1.2x10^3/uL (1.0-4.8) 1.5x10^3/uL (1.0-4.8) Monocytes # (Auto) 1.9x10^3/uL (0.0-1.1) 2.2x10^3/uL (0.0-1.1) 1.5x10^3/uL (0.0-1.1) Eosinophils # (Auto) 0.0x10^3/uL (0.0-0.7) 0.0x10^3/uL (0.0-0.7) 0.1x10^3/uL (0.0-0.7) Basophils # (Auto) 0.1x10^3/uL (0.0-0.2) 0.1x10^3/uL (0.0-0.2) 0.0x10^3/uL (0.0-0.2) Sodium Level 132mmol/L (136-145) 132mmol/L (136-145) 137mmol/L (136-145) Potassium Level 3.9mmol/L (3.5-5.1) 3.5mmol/L (3.5-5.1) 3.3mmol/L (3.5-5.1) Chloride Level 99mmol/L (98-107) 99mmol/L (98-107) 104mmol/L (98-107) Carbon Dioxide Level 26mmol/L (21-32) 21mmol/L (21-32) 25mmol/L (21-32) Anion Gap 7 (6-14) 12 (6-14) 8 (6-14) Blood Urea Nitrogen 18mg/dL (8-26) 18mg/dL (8-26) 20mg/dL (8-26) Creatinine 1.5mg/dL (0.7-1.3) 1.5mg/dL (0.7-1.3) 1.4mg/dL (0.7-1.3) Estimated GFR (Cockcroft-Gault) 47.6 47.6 51.5 BUN/Creatinine Ratio 12 (6-20) Glucose Level 110mg/dL (70-99) 95mg/dL (70-99) 115mg/dL (70-99) Calcium Level 9.0mg/dL (8.5-10.1) 8.6mg/dL (8.5-10.1) 8.0mg/dL (8.5-10.1) Total Bilirubin 1.0mg/dL (0.2-1.0) Aspartate Amino Transf (AST/SGOT) 24U/L (15-37) Alanine Aminotransferase (ALT/SGPT) 46U/L (16-63) Alkaline Phosphatase 77U/L (46-116) Total Protein 8.1g/dL (6.4-8.2) Albumin 3.0g/dL (3.4-5.0) Albumin/Globulin Ratio 0.6 (1.0-1.7) Segmented Neutrophils % 77% (35-66) Band Neutrophils % 8% (0-9) Lymphocytes % 4% (24-48) Monocytes % 11% (0-10) Toxic Granulation Present Toxic Vacuolation Present Platelet Estimate Adequate (ADEQUATE) Laboratory Tests Test 01/31/17 03:20 White Blood Count 19.8x10^3/uL (4.0-11.0) Red Blood Count 3.78x10^6/uL (4.30-5.70) Hemoglobin 11.5g/dL (13.0-17.5) Hematocrit 34.5% (39.0-53.0) Mean Corpuscular Volume 91fL (79-100) Mean Corpuscular Hemoglobin 30pg (25-35) Mean Corpuscular Hemoglobin Concent 33g/dL (31-37) Red Cell Distribution Width 14.4% (11.5-14.5) Platelet Count 231x10^3/uL (140-400) Neutrophils (%) (Auto) 84% (31-73) Lymphocytes (%) (Auto) 8% (24-48) Monocytes (%) (Auto) 8% (0-9) Eosinophils (%) (Auto) 0% (0-3) Basophils (%) (Auto) 0% (0-3) Neutrophils # (Auto) 16.6x10^3uL (1.8-7.7) Lymphocytes # (Auto) 1.5x10^3/uL (1.0-4.8) Monocytes # (Auto) 1.5x10^3/uL (0.0-1.1) Eosinophils # (Auto) 0.1x10^3/uL (0.0-0.7) Basophils # (Auto) 0.0x10^3/uL (0.0-0.2) Sodium Level 137mmol/L (136-145) Potassium Level 3.3mmol/L (3.5-5.1) Chloride Level 104mmol/L (98-107) Carbon Dioxide Level 25mmol/L (21-32) Anion Gap 8 (6-14) Blood Urea Nitrogen 20mg/dL (8-26) Creatinine 1.4mg/dL (0.7-1.3) Estimated GFR (Cockcroft-Gault) 51.5 Glucose Level 115mg/dL (70-99) Calcium Level 8.0mg/dL (8.5-10.1) Microbiology 01/29/17 Urine Culture - Preliminary, Resulted 01/29/17 Urine Culture Result 1 (ROSANGELA) - Preliminary, Resulted Medications Current Medications Ketorolac Tromethamine 10 mg 10 mg 1X ONCE IV Last administered on 01/29/17 18 :10; Start 01/29/17 at 18:00; Stop 01/29/17 at 18:01; Status DC Sodium Chloride 1,000 ml @ 1,000 mls/hr 1X ONCE IV Last administered on 18:10; Start 01/29/17 at 18:00; Stop 01/29/17 at 18:59; Status DC Cefepime HCl/ Sodium Chloride (Maxipime/Iv Sodium Chloride 0.9% 50ml) 50 ml @ 100 mls/hr Q8HRS IV Last administered on 01/31/17 06:02; Start 01/30/17 at 06:00 Fentanyl Citrate (Fentanyl 2ml Vial) 25 mcg PRN Q15MIN PRN IV PAIN GREATER THAN 3/10; Start 01/29/17 at 20:00; Stop 01/30/17 at 00:00; Status DC Ondansetron HCl 4 mg 4 mg 1X ONCE IV ; Start 01/29/17 at 20:00; Stop 01/29/17 at 20:01; Status DC Cefepime HCl/ Sodium Chloride (Maxipime/Iv Sodium Chloride 0.9% 50ml) 50 ml @ 100 mls/hr 1X ONCE IV Last administered on 01/29/17 20:15; Start 01/29/17 at 20 :15; Stop 01/29/17 at 20:44; Status DC Ondansetron HCl (Zofran) 4 mg PRN Q8HRS PRN IV NAUSEA/VOMITING; Start 01/29/17 at 23:15; Stop 01/30/17 at 23:14; Status DC Morphine Sulfate 4 mg 4 mg PRN Q2HR PRN IV SEVERE PAIN Last administered on 01/30 20:25; Start 01/29/17 at 23:15; Stop 01/30/17 at 23:14; Status DC Sodium Chloride (Iv Sodium Chloride 0.9% 1000ml Bag) 1,000 ml @ 125 mls/hr Q8H IV Last administered on 01/30/17 06:04; Start 01/29/17 at 23:02; Stop 01/30/17 at 13:29; Status DC Acetaminophen (Tylenol) 650 mg PRN Q4HRS PRN PO FEVER Last administered on 00:14; Start 01/29/17 at 23:15; Stop 01/30/17 at 23:14; Status DC Ibuprofen (Motrin) 600 mg PRN Q6HRS PRN PO FEVER Last administered on 01/30/17 15:07; Start 01/30/17 at 03:15; Stop 01/30/17 at 17:47; Status DC Acetaminophen (Tylenol) 650 mg PRN Q6HRS PRN PO FEVER Last administered on 08:57; Start 01/30/17 at 08:45 Ondansetron HCl (Zofran) 4 mg PRN Q6HRS PRN IV NAUSEA/VOMITING; Start 01/30/17 at 08:45 Oxycodone/ Acetaminophen (Percocet 5/325) 1 tab PRN Q6HRS PRN PO PAIN; Start at 08:45 Phenazopyridine HCl (Pyridium) 200 mg PRN TID PRN PO BLADDER SPASM; Start at 08:45 Tamsulosin HCl (Flomax) 0.4 mg DAILY PO ; Start 01/30/17 at 09:00; Stop 01/30/17 at 09:00; Status DC Tamsulosin HCl 0.8 mg 0.8 mg DAILY PO Last administered on 01/31/17 08:57; Start 01/30/17 at 09:00 Doxycycline Hyclate 100 mg/ Dextrose 100 ml @ 50 mls/hr Q12HR IV Last administered on 01/31/17 08:58; Start 01/30/17 at 10:30 Sodium Chloride (Iv Sodium Chloride 0.9% 1000ml Bag) 1,000 ml @ 125 mls/hr Q8H IV Last administered on 01/31/17 06:03; Start 01/30/17 at 13:00 Morphine Sulfate 2 mg PRN Q2HR PRN IV PAIN Last administered on 01/31/17 07:02 ; Start 01/30/17 at 13:00 Morphine Sulfate 4 mg PRN Q2HR PRN IV PAIN Last administered on 01/31/17 08:57 ; Start 01/30/17 at 13:00 Active Scripts Active Bactrim Ds Tablet (Sulfamethoxazole/Trimethoprim) 1 Each Tablet 1 Tab PO BID Pyridium (Phenazopyridine Hcl) 200 Mg Tablet 200 Mg PO TID PRN Naproxen 375 Mg Tablet 375 Mg PO BID Percocet 5-325 Mg Tablet (Oxycodone/Acetaminophen) 1 Each Tablet 1 Tab PO PRN Q6HRS PRN Reported Cialis (Tadalafil) 5 Mg Tablet Vitamin D2 (Ergocalciferol (Vitamin D2)) 50,000 Unit Capsule Dutasteride 0.5 Mg Capsule Flomax (Tamsulosin Hcl) 0.4 Mg Cap.er.24h 1 Cap PO DAILY Propranolol Hcl 20 Mg Tablet Vitals/I & O Vital Sign - Last 24 Hours 01/30/17 01/30/17 01/30/17 01/30/17 11:00 14:21 15:00 16:10 Temp 100.4 102.9 102.9 100.4 102.9 102.9 Pulse 92 127 Resp 20 24 B/P 98/57 111/65 Pulse Ox 93 90 O2 Delivery Room Air Room Air Room Air 01/30/17 01/30/17 01/30/17 01/30/17 17:00 17:02 17:32 18:00 Temp 101.0 99.0 101.0 99.0 O2 Delivery Room Air Room Air 01/30/17 01/30/17 01/30/17 01/30/17 19:15 19:50 20:25 23:34 Temp 97.9 97.5 97.9 97.5 Pulse 90 80 Resp 18 18 B/P 90/62 90/58 Pulse Ox 96 96 96 O2 Delivery Room Air Room Air Room Air Room Air 01/31/17 01/31/17 01/31/17 01/31/17 00:00 02:46 03:22 03:36 Temp 98.1 98.1 Pulse 86 Resp 18 B/P 100/66 Pulse Ox 96 96 96 94 O2 Delivery Room Air Room Air Room Air Room Air 01/31/17 01/31/17 01/31/17 01/31/17 07:00 07:02 07:33 08:57 Temp 99.3 99.3 Pulse 98 Resp 22 B/P 112/71 Pulse Ox 94 94 O2 Delivery Room Air Room Air Room Air Room Air Intake and Output 01/30/17 01/30/17 01/31/17 15:00 23:00 07:00 Intake Total 1225 ml Output Total 850 ml 1150 ml Balance -850 ml 75 ml MANUEL PATINO MD January 31, 2017 09:12
--- NOTE | 2017-01-31 09:52 | PDOC ---
Infectious Disease Note Subjective Subjective feeling better, less pain and swelling ROS ROS GEN: Denies fevers, chills, sweats HEENT: Denies blurred vision, sore throat CV: Denies chest pain RESP: Denies shortness of air, cough GI: Denies n/v/d : Denies hematuria, dysuria ENDO: Denies weight changes NEURO: Denies confusion, dizziness MSK: Denies weakness, joint pain/swelling SKIN: Denies rash, pruritus Vital Sign Vital Signs Vital Signs Date Time Temp Pulse Resp B/P Pulse Ox O2 Delivery O2 Flow Rate FiO2 01/31/17 09:30 Room Air 01/31/17 07:02 94 01/31/17 07:00 99.3 98 22 112/71 99.3 Physical Exam PHYSICAL EXAM GENERAL: NAD, Alert HEENT: PERRL, OC/OP NECK: Supple, no JVD, no LN LUNGS: Clear HEART: S1S2, no gallop, no murmur ABD: Soft, NT, no organomegaly, no rebound EXT: No edema, no cyanosis 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, 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, no focal neurologic deficit SKIN: No rash,, scrotum is less swollen and less painful IV: ok Labs Lab Laboratory Tests Test 01/31/17 03:20 White Blood Count 19.8x10^3/uL (4.0-11.0) Red Blood Count 3.78x10^6/uL (4.30-5.70) Hemoglobin 11.5g/dL (13.0-17.5) Hematocrit 34.5% (39.0-53.0) Mean Corpuscular Volume 91fL (79-100) Mean Corpuscular Hemoglobin 30pg (25-35) Mean Corpuscular Hemoglobin Concent 33g/dL (31-37) Red Cell Distribution Width 14.4% (11.5-14.5) Platelet Count 231x10^3/uL (140-400) Neutrophils (%) (Auto) 84% (31-73) Lymphocytes (%) (Auto) 8% (24-48) Monocytes (%) (Auto) 8% (0-9) Eosinophils (%) (Auto) 0% (0-3) Basophils (%) (Auto) 0% (0-3) Neutrophils # (Auto) 16.6x10^3uL (1.8-7.7) Lymphocytes # (Auto) 1.5x10^3/uL (1.0-4.8) Monocytes # (Auto) 1.5x10^3/uL (0.0-1.1) Eosinophils # (Auto) 0.1x10^3/uL (0.0-0.7) Basophils # (Auto) 0.0x10^3/uL (0.0-0.2) Sodium Level 137mmol/L (136-145) Potassium Level 3.3mmol/L (3.5-5.1) Chloride Level 104mmol/L (98-107) Carbon Dioxide Level 25mmol/L (21-32) Anion Gap 8 (6-14) Blood Urea Nitrogen 20mg/dL (8-26) Creatinine 1.4mg/dL (0.7-1.3) Estimated GFR (Cockcroft-Gault) 51.5 Glucose Level 115mg/dL (70-99) Calcium Level 8.0mg/dL (8.5-10.1) Objective Assessment Scrotal swelling and pain, epididymitis Fever and leukocytosis h/o kidney stones UTI with possible pyelonephritis Plan Plan of Care cont cefepime and doxy supportive care cultures neg so far KISHOR BLANCO MD January 31, 2017 09:52
[2017-01-31 11:05] VITALS: BP 96/64
[2017-01-31] MEDS ORDERED: POTASSIUM CHLORIDE 20 MEQ TABLET.ER. PO ONE (12:45)
--- NOTE | 2017-01-31 12:47 | PDOC ---
PROGRESS NOTES Chief Complaint Chief Complaint 1. sepsis with Scrotal swelling and pain, epididymitis 2. bl epidemitis and bl hydroceles 3. UTI with possible pyelonephritis 4. BPH 5. CKD3 plan: renal, uro, id consult on cefepime, doxy as per ID US done fu ucx, bcx pain control ivf , keep churchill, increase flomax to 0.8mg daily dvt ppx History of Present Illness History of Present Illness abd pain better on Churchill has BPH, Fever and leukocytosis cont cefepime and doxy cultures neg so far Vitals Vitals Vital Signs Date Time Temp Pulse Resp B/P Pulse Ox O2 Delivery O2 Flow Rate FiO2 01/31/17 11:42 Room Air 01/31/17 11:05 98.6 85 18 96/64 96 98.6 Physical Exam Physical Exam severe scrotum swelling General: Alert, Oriented X3, Cooperative, No acute distress Heart: Regular rate, Normal S1 Lungs: Clear Abdomen: Normal bowel sounds, Soft, No tenderness, Other Extremities: No clubbing, No cyanosis Labs LABS Laboratory Tests Test 01/31/17 03:20 White Blood Count 19.8x10^3/uL (4.0-11.0) Red Blood Count 3.78x10^6/uL (4.30-5.70) Hemoglobin 11.5g/dL (13.0-17.5) Hematocrit 34.5% (39.0-53.0) Mean Corpuscular Volume 91fL (79-100) Mean Corpuscular Hemoglobin 30pg (25-35) Mean Corpuscular Hemoglobin Concent 33g/dL (31-37) Red Cell Distribution Width 14.4% (11.5-14.5) Platelet Count 231x10^3/uL (140-400) Neutrophils (%) (Auto) 84% (31-73) Lymphocytes (%) (Auto) 8% (24-48) Monocytes (%) (Auto) 8% (0-9) Eosinophils (%) (Auto) 0% (0-3) Basophils (%) (Auto) 0% (0-3) Neutrophils # (Auto) 16.6x10^3uL (1.8-7.7) Lymphocytes # (Auto) 1.5x10^3/uL (1.0-4.8) Monocytes # (Auto) 1.5x10^3/uL (0.0-1.1) Eosinophils # (Auto) 0.1x10^3/uL (0.0-0.7) Basophils # (Auto) 0.0x10^3/uL (0.0-0.2) Sodium Level 137mmol/L (136-145) Potassium Level 3.3mmol/L (3.5-5.1) Chloride Level 104mmol/L (98-107) Carbon Dioxide Level 25mmol/L (21-32) Anion Gap 8 (6-14) Blood Urea Nitrogen 20mg/dL (8-26) Creatinine 1.4mg/dL (0.7-1.3) Estimated GFR (Cockcroft-Gault) 51.5 Glucose Level 115mg/dL (70-99) Calcium Level 8.0mg/dL (8.5-10.1) Review of Systems Review of Systems no stool mod appetite, no nv.v.d Assessment and Plan Assessmemt and Plan Problems Medical Problems: (1) Pyelonephritis Status: Acute (2) Urinary retention Status: Acute Problems: Comment Review of Relevant I have reviewed the following items cesar (where applicable) has been applied. Labs Laboratory Tests Test 01/29/17 16:58 01/29/17 18:10 01/30/17 04:02 01/31/17 03:20 Urine Collection Type Unknown Urine Color Yellow Urine Clarity Turbid Urine pH 6.0 Urine Specific [place] 1.015 Urine Protein 100mg/dL (NEG-TRACE) Urine Glucose (UA) Negativemg/dL (NEG) Urine Ketones (Stick) Negativemg/dL (NEG) Urine Blood Large (NEG) Urine Nitrite Positive (NEG) Urine Bilirubin Negative (NEG) Urine Urobilinogen Dipstick 0.2mg/dL (0.2 mg/dL) Urine Leukocyte Esterase Large (NEG) Urine RBC >40/HPF (0-2) Urine WBC Tntc/HPF (0-4) Urine Bacteria Many/HPF (0-FEW) White Blood Count 16.1x10^3/uL (4.0-11.0) 20.9x10^3/uL (4.0-11.0) 19.8x10^3/uL (4.0-11.0) Red Blood Count 4.51x10^6/uL (4.30-5.70) 4.16x10^6/uL (4.30-5.70) 3.78x10^6/uL (4.30-5.70) Hemoglobin 13.6g/dL (13.0-17.5) 12.7g/dL (13.0-17.5) 11.5g/dL (13.0-17.5) Hematocrit 40.7% (39.0-53.0) 37.7% (39.0-53.0) 34.5% (39.0-53.0) Mean Corpuscular Volume 90fL (79-100) 91fL (79-100) 91fL (79-100) Mean Corpuscular Hemoglobin 30pg (25-35) 31pg (25-35) 30pg (25-35) Mean Corpuscular Hemoglobin Concent 33g/dL (31-37) 34g/dL (31-37) 33g/dL (31-37) Red Cell Distribution Width 14.4% (11.5-14.5) 14.1% (11.5-14.5) 14.4% (11.5-14.5) Platelet Count 319x10^3/uL (140-400) 296x10^3/uL (140-400) 231x10^3/uL (140-400) Neutrophils (%) (Auto) 75% (31-73) 83% (31-73) 84% (31-73) Lymphocytes (%) (Auto) 12% (24-48) 6% (24-48) 8% (24-48) Monocytes (%) (Auto) 12% (0-9) 11% (0-9) 8% (0-9) Eosinophils (%) (Auto) 0% (0-3) 0% (0-3) 0% (0-3) Basophils (%) (Auto) 0% (0-3) 0% (0-3) 0% (0-3) Neutrophils # (Auto) 12.1x10^3uL (1.8-7.7) 17.5x10^3uL (1.8-7.7) 16.6x10^3uL (1.8-7.7) Lymphocytes # (Auto) 2.0x10^3/uL (1.0-4.8) 1.2x10^3/uL (1.0-4.8) 1.5x10^3/uL (1.0-4.8) Monocytes # (Auto) 1.9x10^3/uL (0.0-1.1) 2.2x10^3/uL (0.0-1.1) 1.5x10^3/uL (0.0-1.1) Eosinophils # (Auto) 0.0x10^3/uL (0.0-0.7) 0.0x10^3/uL (0.0-0.7) 0.1x10^3/uL (0.0-0.7) Basophils # (Auto) 0.1x10^3/uL (0.0-0.2) 0.1x10^3/uL (0.0-0.2) 0.0x10^3/uL (0.0-0.2) Sodium Level 132mmol/L (136-145) 132mmol/L (136-145) 137mmol/L (136-145) Potassium Level 3.9mmol/L (3.5-5.1) 3.5mmol/L (3.5-5.1) 3.3mmol/L (3.5-5.1) Chloride Level 99mmol/L (98-107) 99mmol/L (98-107) 104mmol/L (98-107) Carbon Dioxide Level 26mmol/L (21-32) 21mmol/L (21-32) 25mmol/L (21-32) Anion Gap 7 (6-14) 12 (6-14) 8 (6-14) Blood Urea Nitrogen 18mg/dL (8-26) 18mg/dL (8-26) 20mg/dL (8-26) Creatinine 1.5mg/dL (0.7-1.3) 1.5mg/dL (0.7-1.3) 1.4mg/dL (0.7-1.3) Estimated GFR (Cockcroft-Gault) 47.6 47.6 51.5 BUN/Creatinine Ratio 12 (6-20) Glucose Level 110mg/dL (70-99) 95mg/dL (70-99) 115mg/dL (70-99) Calcium Level 9.0mg/dL (8.5-10.1) 8.6mg/dL (8.5-10.1) 8.0mg/dL (8.5-10.1) Total Bilirubin 1.0mg/dL (0.2-1.0) Aspartate Amino Transf (AST/SGOT) 24U/L (15-37) Alanine Aminotransferase (ALT/SGPT) 46U/L (16-63) Alkaline Phosphatase 77U/L (46-116) Total Protein 8.1g/dL (6.4-8.2) Albumin 3.0g/dL (3.4-5.0) Albumin/Globulin Ratio 0.6 (1.0-1.7) Segmented Neutrophils % 77% (35-66) Band Neutrophils % 8% (0-9) Lymphocytes % 4% (24-48) Monocytes % 11% (0-10) Toxic Granulation Present Toxic Vacuolation Present Platelet Estimate Adequate (ADEQUATE) Laboratory Tests Test 01/31/17 03:20 White Blood Count 19.8x10^3/uL (4.0-11.0) Red Blood Count 3.78x10^6/uL (4.30-5.70) Hemoglobin 11.5g/dL (13.0-17.5) Hematocrit 34.5% (39.0-53.0) Mean Corpuscular Volume 91fL (79-100) Mean Corpuscular Hemoglobin 30pg (25-35) Mean Corpuscular Hemoglobin Concent 33g/dL (31-37) Red Cell Distribution Width 14.4% (11.5-14.5) Platelet Count 231x10^3/uL (140-400) Neutrophils (%) (Auto) 84% (31-73) Lymphocytes (%) (Auto) 8% (24-48) Monocytes (%) (Auto) 8% (0-9) Eosinophils (%) (Auto) 0% (0-3) Basophils (%) (Auto) 0% (0-3) Neutrophils # (Auto) 16.6x10^3uL (1.8-7.7) Lymphocytes # (Auto) 1.5x10^3/uL (1.0-4.8) Monocytes # (Auto) 1.5x10^3/uL (0.0-1.1) Eosinophils # (Auto) 0.1x10^3/uL (0.0-0.7) Basophils # (Auto) 0.0x10^3/uL (0.0-0.2) Sodium Level 137mmol/L (136-145) Potassium Level 3.3mmol/L (3.5-5.1) Chloride Level 104mmol/L (98-107) Carbon Dioxide Level 25mmol/L (21-32) Anion Gap 8 (6-14) Blood Urea Nitrogen 20mg/dL (8-26) Creatinine 1.4mg/dL (0.7-1.3) Estimated GFR (Cockcroft-Gault) 51.5 Glucose Level 115mg/dL (70-99) Calcium Level 8.0mg/dL (8.5-10.1) Microbiology 01/29/17 Blood Culture - Preliminary, Resulted NO GROWTH AFTER 1 DAY 01/29/17 Urine Culture - Preliminary, Resulted 01/29/17 Urine Culture Result 1 (ROSANGELA) - Preliminary, Resulted Medications Current Medications Ketorolac Tromethamine 10 mg 10 mg 1X ONCE IV Last administered on 01/29/17 18 :10; Start 01/29/17 at 18:00; Stop 01/29/17 at 18:01; Status DC Sodium Chloride 1,000 ml @ 1,000 mls/hr 1X ONCE IV Last administered on 18:10; Start 01/29/17 at 18:00; Stop 01/29/17 at 18:59; Status DC Cefepime HCl/ Sodium Chloride (Maxipime/Iv Sodium Chloride 0.9% 50ml) 50 ml @ 100 mls/hr Q8HRS IV Last administered on 01/31/17 06:02; Start 01/30/17 at 06:00 Fentanyl Citrate (Fentanyl 2ml Vial) 25 mcg PRN Q15MIN PRN IV PAIN GREATER THAN 3/10; Start 01/29/17 at 20:00; Stop 01/30/17 at 00:00; Status DC Ondansetron HCl 4 mg 4 mg 1X ONCE IV ; Start 01/29/17 at 20:00; Stop 01/29/17 at 20:01; Status DC Cefepime HCl/ Sodium Chloride (Maxipime/Iv Sodium Chloride 0.9% 50ml) 50 ml @ 100 mls/hr 1X ONCE IV Last administered on 01/29/17 20:15; Start 01/29/17 at 20 :15; Stop 01/29/17 at 20:44; Status DC Ondansetron HCl (Zofran) 4 mg PRN Q8HRS PRN IV NAUSEA/VOMITING; Start 01/29/17 at 23:15; Stop 01/30/17 at 23:14; Status DC Morphine Sulfate 4 mg 4 mg PRN Q2HR PRN IV SEVERE PAIN Last administered on 01/30 20:25; Start 01/29/17 at 23:15; Stop 01/30/17 at 23:14; Status DC Sodium Chloride (Iv Sodium Chloride 0.9% 1000ml Bag) 1,000 ml @ 125 mls/hr Q8H IV Last administered on 01/30/17 06:04; Start 01/29/17 at 23:02; Stop 01/30/17 at 13:29; Status DC Acetaminophen (Tylenol) 650 mg PRN Q4HRS PRN PO FEVER Last administered on 00:14; Start 01/29/17 at 23:15; Stop 01/30/17 at 23:14; Status DC Ibuprofen (Motrin) 600 mg PRN Q6HRS PRN PO FEVER Last administered on 01/30/17 15:07; Start 01/30/17 at 03:15; Stop 01/30/17 at 17:47; Status DC Acetaminophen (Tylenol) 650 mg PRN Q6HRS PRN PO FEVER Last administered on 08:57; Start 01/30/17 at 08:45 Ondansetron HCl (Zofran) 4 mg PRN Q6HRS PRN IV NAUSEA/VOMITING; Start 01/30/17 at 08:45 Oxycodone/ Acetaminophen (Percocet 5/325) 1 tab PRN Q6HRS PRN PO PAIN; Start at 08:45 Phenazopyridine HCl (Pyridium) 200 mg PRN TID PRN PO BLADDER SPASM; Start at 08:45 Tamsulosin HCl (Flomax) 0.4 mg DAILY PO ; Start 01/30/17 at 09:00; Stop 01/30/17 at 09:00; Status DC Tamsulosin HCl 0.8 mg 0.8 mg DAILY PO Last administered on 01/31/17 08:57; Start 01/30/17 at 09:00 Doxycycline Hyclate 100 mg/ Dextrose 100 ml @ 50 mls/hr Q12HR IV Last administered on 01/31/17 08:58; Start 01/30/17 at 10:30 Sodium Chloride (Iv Sodium Chloride 0.9% 1000ml Bag) 1,000 ml @ 125 mls/hr Q8H IV Last administered on 01/31/17 06:03; Start 01/30/17 at 13:00 Morphine Sulfate 2 mg PRN Q2HR PRN IV PAIN Last administered on 01/31/17 11:09 ; Start 01/30/17 at 13:00 Morphine Sulfate 4 mg PRN Q2HR PRN IV PAIN Last administered on 01/31/17 08:57 ; Start 01/30/17 at 13:00 Potassium Chloride (Klor-Con) 40 meq 1X ONCE PO ; Start 01/31/17 at 12:45; Stop 01/31/17 at 12:46 Active Scripts Active Bactrim Ds Tablet (Sulfamethoxazole/Trimethoprim) 1 Each Tablet 1 Tab PO BID Pyridium (Phenazopyridine Hcl) 200 Mg Tablet 200 Mg PO TID PRN Naproxen 375 Mg Tablet 375 Mg PO BID Percocet 5-325 Mg Tablet (Oxycodone/Acetaminophen) 1 Each Tablet 1 Tab PO PRN Q6HRS PRN Reported Cialis (Tadalafil) 5 Mg Tablet Vitamin D2 (Ergocalciferol (Vitamin D2)) 50,000 Unit Capsule Dutasteride 0.5 Mg Capsule Flomax (Tamsulosin Hcl) 0.4 Mg Cap.er.24h 1 Cap PO DAILY Propranolol Hcl 20 Mg Tablet Vitals/I & O Vital Sign - Last 24 Hours 01/30/17 01/30/17 01/30/17 01/30/17 14:21 15:00 16:10 17:00 Temp 102.9 102.9 101.0 102.9 102.9 101.0 Pulse 127 Resp 24 B/P 111/65 Pulse Ox 90 O2 Delivery Room Air Room Air 01/30/17 01/30/17 01/30/1701/30/17 17:02 17:32 18:00 19:15 Temp 99.0 97.9 99.0 97.9 Pulse 90 Resp 18 B/P 90/62 Pulse Ox 96 O2 Delivery Room Air Room Air Room Air 01/30/17 01/30/17 01/30/17 01/31/17 19:50 20:25 23:34 00:00 Temp 97.5 97.5 Pulse 80 Resp 18 B/P 90/58 Pulse Ox 96 96 96 O2 Delivery Room Air Room Air Room Air Room Air 01/31/17 01/31/17 01/31/17 01/31/17 02:46 03:22 03:36 07:00 Temp 98.1 99.3 98.1 99.3 Pulse 86 98 Resp 18 22 B/P 100/66 112/71 Pulse Ox 96 96 94 94 O2 Delivery Room Air Room Air Room Air 01/31/17 01/31/17 01/31/17 01/31/17 07:02 07:40 08:57 09:30 Pulse Ox 94 O2 Delivery Room Air Room Air Room Air Room Air 01/31/17 01/31/17 01/31/17 11:05 11:09 11:42 Temp 98.6 98.6 Pulse 85 Resp 18 B/P 96/64 Pulse Ox 96 O2 Delivery Room Air Room Air Room Air Intake and Output 01/30/17 01/30/17 01/31/17 15:00 23:00 07:00 Intake Total 1225 ml Output Total 850 ml 1150 ml Balance -850 ml 75 ml KIRSTIN PHILIPPE MD January 31, 2017 12:47
[2017-01-31] MEDS ORDERED: POLYETHYLENE GLYCOL 3350 17 GM PACKET. PO ONE (13:00)
--- NOTE | 2017-01-31 13:43 | PDOC ---
SUBJECTIVE ROS CKD III Doing OK, still has fevers CVS: no Orthopnea, no CP RESP: no SOB, no RICHARDSON GI: no Nausea, no Vomiting : no Dysuria, no Urgency OBJECTIVE Vital Signs Vital Signs Date Time Temp Pulse Resp B/P Pulse Ox O2 Delivery O2 Flow Rate FiO2 01/31/17 11:42 Room Air 01/31/17 11:05 98.6 85 18 96/64 96 98.6 I & 0 Intake and Output 01/31/17 07:00 Intake Total 1225 ml Output Total 2000 ml Balance -775 ml Intake Oral 300 ml IV Total 925 ml Output Urine Total 2000 ml PHYSICAL EXAM Physical Exam Physical Exam GEN: Awake, Oriented x 3, In no distress EYES: Vision Unchanged, Conjunctiva Normal EN: No EN Drainage, Mucous Membranes moist NECK: no JVD, no JVP, Supple, no Thyromegaly CVS: S1S2, no Murmur, No Gallop, No Rub,no Edema RESP: no Rales, no Rhonchi,no Acc. Muscle Use GI: BS + ve, NO Bruit, Non Tender, Non Distended : no CVA tenderness, on Suprapubic Tenderness Assessment & Plan DEZ - have D/mary NSIADs . Current FLuid and E-lyte status does not necessitate emergent need for Dialysis. Creat no worse CKD III - cannot be ruled out Low K - repalce and check Mag Lowish Alb - suspect due to Febrile illness - encourage PO intake Discussed Plan of Care and prognosis etc. at length with family. COMMENT/RELEVANT DATA Meds Current Medications Medications (Trade) Dose Ordered Sig/Annie Start Time Stop Time Status Last Admin Dose Admin Acetaminophen (Tylenol) 650 mg PRN Q6HRS PRN 01/30/17 08:45 01/31/17 08:57 650 MG Cefepime HCl/ Sodium Chloride (Maxipime/Iv Sodium Chloride 0.9% 50ml) 50 ml @ 100 mls/hr 1X ONCE 01/29/17 20:15 01/29/17 20:44 DC 01/29/17 20:15 100 MLS/HR Docusate Sodium (Colace) 100 mg DAILY 02/01/17 09:00 Doxycycline Hyclate 100 mg/ Dextrose 100 ml @ 50 mls/hr Q12HR 01/30/17 10:30 01/31/17 08:58 50 MLS/HR Fentanyl Citrate (Fentanyl 2ml Vial) 25 mcg PRN Q15MIN PRN 01/29/17 20:00 01/30/17 00:00 DC Ibuprofen (Motrin) 600 mg PRN Q6HRS PRN 01/30/17 03:15 01/30/17 17:47 DC 01/30/17 15:07 600 MG Ketorolac Tromethamine (Toradol) 10 mg 1X ONCE 01/29/17 18:00 01/29/17 18:01 DC 01/29/17 18:10 10 MG Morphine Sulfate 4 mg PRN Q2HR PRN 01/30/17 13:00 01/31/17 08:57 4 MG Ondansetron HCl (Zofran) 4 mg PRN Q6HRS PRN 01/30/17 08:45 Ondansetron HCl 4 mg 4 mg 1X ONCE 01/29/17 20:00 01/29/17 20:01 DC Oxycodone/ Acetaminophen (Percocet 5/325) 1 tab PRN Q6HRS PRN 01/30/17 08:45 Phenazopyridine HCl (Pyridium) 200 mg PRN TID PRN 01/30/17 08:45 Polyethylene Glycol (miraLAX PACKET) 17 gm DAILY 02/01/17 09:00 Potassium Chloride (Klor-Con) 40 meq 1X ONCE 01/31/17 12:45 01/31/17 12:46 DC 01/31/17 12:59 40 MEQ Sodium Chloride (Iv Sodium Chloride 0.9% 1000ml Bag) 1,000 ml @ 125 mls/hr Q8H 01/30/17 13:00 01/31/17 06:03 125 MLS/HR Tamsulosin HCl (Flomax) 0.4 mg DAILY 01/30/17 09:00 01/30/17 09:00 DC Tamsulosin HCl 0.8 mg 0.8 mg DAILY 01/30/17 09:00 01/31/17 08:57 0.8 MG Lab Laboratory Tests Test 01/31/17 03:20 White Blood Count 19.8x10^3/uL (4.0-11.0) Red Blood Count 3.78x10^6/uL (4.30-5.70) Hemoglobin 11.5g/dL (13.0-17.5) Hematocrit 34.5% (39.0-53.0) Mean Corpuscular Volume 91fL (79-100) Mean Corpuscular Hemoglobin 30pg (25-35) Mean Corpuscular Hemoglobin Concent 33g/dL (31-37) Red Cell Distribution Width 14.4% (11.5-14.5) Platelet Count 231x10^3/uL (140-400) Neutrophils (%) (Auto) 84% (31-73) Lymphocytes (%) (Auto) 8% (24-48) Monocytes (%) (Auto) 8% (0-9) Eosinophils (%) (Auto) 0% (0-3) Basophils (%) (Auto) 0% (0-3) Neutrophils # (Auto) 16.6x10^3uL (1.8-7.7) Lymphocytes # (Auto) 1.5x10^3/uL (1.0-4.8) Monocytes # (Auto) 1.5x10^3/uL (0.0-1.1) Eosinophils # (Auto) 0.1x10^3/uL (0.0-0.7) Basophils # (Auto) 0.0x10^3/uL (0.0-0.2) Sodium Level 137mmol/L (136-145) Potassium Level 3.3mmol/L (3.5-5.1) Chloride Level 104mmol/L (98-107) Carbon Dioxide Level 25mmol/L (21-32) Anion Gap 8 (6-14) Blood Urea Nitrogen 20mg/dL (8-26) Creatinine 1.4mg/dL (0.7-1.3) Estimated GFR (Cockcroft-Gault) 51.5 Glucose Level 115mg/dL (70-99) Calcium Level 8.0mg/dL (8.5-10.1) MADDI BLANCO MD January 31, 2017 13:43
[2017-01-31] MEDS ORDERED: MAGNESIUM SULFATE 2GM 50 ML IV PRN (13:45)
[2017-01-31 15:00] VITALS: BP 116/74
[2017-01-31] MEDS: POTASSIUM ACETATE 40 MEQ in IV NORMAL SALINE 1000ML BAG 1,000 ML IV SCH (15:36)
[2017-01-31] MEDS: oxyCODONE/APAP 5/325 1 TAB TABLET PO PRN (17:44)
[2017-01-31 19:12] VITALS: BP 116/72
[2017-01-31 23:29] VITALS: BP 99/61
[2017-02-01] MEDS: POTASSIUM ACETATE 40 MEQ in IV NORMAL SALINE 1000ML BAG 1,000 ML IV SCH (02:05)
[2017-02-01 02:46] VITALS: BP 121/75
[2017-02-01] MEDS: MORPHINE SULFATE 2 MG/ML DISP.SYRIN. IV PRN ×4 (04:00→19:56)
[2017-02-01] MEDS: oxyCODONE/APAP 5/325 1 TAB TABLET PO PRN ×2 (04:30→18:03)
[2017-02-01] MEDS: IV NORMAL SALINE 1000ML BAG 1,000 ML IV SCH ×3 (06:20→22:35)
[2017-02-01 07:15] VITALS: BP 137/71
[2017-02-01] MEDS ORDERED: MAGNESIUM SULFATE 2GM 50 ML IV ONE (08:00)
[2017-02-01 08:08] LABS: CREATININE 1.3 mg/dL (0.7-1.3); GFR 56.1; POTASSIUM 4.3 mmol/L (3.5-5.1)
[2017-02-01 08:20] LABS: BASO % 0 % (0-3); EOS % 1 % (0-3); HEMATOCRIT 35.2 % (39.0-53.0); HEMOGLOBIN 11.5 g/dL (13.0-17.5); LYMPH # 1.3 x10^3/uL (1.0-4.8); LYMPH % 11 % (24-48); MEAN CORPUSCULAR HEMOGLOBIN 30 pg (25-35); MEAN CORPUSCULAR HGB CONC 33 g/dL (31-37); MEAN CORPUSCULAR VOLUME 91 fL (79-100); MONO % 7 % (0-9); NEUT % 81 % (31-73); PLATELET COUNT 244 x10^3/uL (140-400); RED BLOOD COUNT 3.88 x10^6/uL (4.30-5.70); RED CELL DISTRIBUTION WIDTH 14.6 % (11.5-14.5); WHITE BLOOD COUNT 11.6 x10^3/uL (4.0-11.0)
[2017-02-01] MEDS: DOXYCYCLINE HYCLATE 100 MG in IV DEXTROSE 5% 100 ML IV SCH (08:57)
[2017-02-01] MEDS: POLYETHYLENE GLYCOL 3350 17 GM PACKET. PO SCH (08:58)
--- NOTE | 2017-02-01 08:58 | PDOC ---
Infectious Disease Note Subjective Subjective feeling better, less pain and swelling ROS ROS GEN: Denies fevers, chills, sweats HEENT: Denies blurred vision, sore throat CV: Denies chest pain RESP: Denies shortness of air, cough GI: Denies n/v/d NEURO: Denies confusion, dizziness MSK: Denies weakness, joint pain/swelling Vital Sign Vital Signs Vital Signs Date Time Temp Pulse Resp B/P (MAP) Pulse Ox O2 Delivery O2 Flow Rate FiO2 02/01/17 07:15 98.6 76 20 137/71 (93) 94 Room Air 98.6 Physical Exam PHYSICAL EXAM GENERAL: NAD, Alert HEENT: PERRL, OC/OP NECK: Supple, no JVD, no LN LUNGS: Clear HEART: S1S2, no gallop, no murmur ABD: Soft, NT, no organomegaly, no rebound EXT: No edema, no cyanosis 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, 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, no focal neurologic deficit SKIN: No rash IV: ok Labs Lab Laboratory Tests Test 02/01/17 03:25 White Blood Count 11.6 x10^3/uL (4.0-11.0) Red Blood Count 3.88 x10^6/uL (4.30-5.70) Hemoglobin 11.5 g/dL (13.0-17.5) Hematocrit 35.2 % (39.0-53.0) Mean Corpuscular Volume 91 fL (79-100) Mean Corpuscular Hemoglobin 30 pg (25-35) Mean Corpuscular Hemoglobin Concent 33 g/dL (31-37) Red Cell Distribution Width 14.6 % (11.5-14.5) Platelet Count 244 x10^3/uL (140-400) Neutrophils (%) (Auto) 81 % (31-73) Lymphocytes (%) (Auto) 11 % (24-48) Monocytes (%) (Auto) 7 % (0-9) Eosinophils (%) (Auto) 1 % (0-3) Basophils (%) (Auto) 0 % (0-3) Neutrophils # (Auto) 9.4 x10^3uL (1.8-7.7) Lymphocytes # (Auto) 1.3 x10^3/uL (1.0-4.8) Monocytes # (Auto) 0.9 x10^3/uL (0.0-1.1) Eosinophils # (Auto) 0.1 x10^3/uL (0.0-0.7) Basophils # (Auto) 0.0 x10^3/uL (0.0-0.2) Sodium Level 136 mmol/L (136-145) Potassium Level 4.3 mmol/L (3.5-5.1) Chloride Level 103 mmol/L (98-107) Carbon Dioxide Level 22 mmol/L (21-32) Anion Gap 11 (6-14) Blood Urea Nitrogen 17 mg/dL (8-26) Creatinine 1.3 mg/dL (0.7-1.3) Estimated GFR (Cockcroft-Gault) 56.1 Glucose Level 136 mg/dL (70-99) Calcium Level 8.0 mg/dL (8.5-10.1) Magnesium Level 1.5 mg/dL (1.8-2.4) Objective Assessment Scrotal swelling and pain, epididymitis Fever and leukocytosis h/o kidney stones UTI with possible pyelonephritis Plan Plan of Care cefepime and doxy change to po levaquin ( cipro with upper chest mus spasms ?? ) supportive care cultures neg so far KISHOR BLANCO MD February 01, 2017 08:58
[2017-02-01] MEDS: TAMSULOSIN 0.4 MG CAP.ER.24H. PO SCH (08:59)
[2017-02-01] MEDS: DOCUSATE SODIUM 100 MG CAPSULE. PO SCH (08:59)
--- NOTE | 2017-02-01 09:01 | PDOC ---
PROGRESS NOTE CHIEF COMPLAINT: retention epididymitis SUBJECTIVE: ROS: ROS: RESPIRATORY: Shortness of breath denies. Cough denies. UROLOGY: Denies blood in urine. Denies difficulty urinating HPI: Duration: [1 week] Quality: [marked] Severity: [marked] Site/Location: [scrotum] PMH: epididymitis Problems: epididymitis retention f/u sono continue antibiotics Problems Medical Problems: (1) Pyelonephritis Status: Acute (2) Urinary retention Status: Acute OBJECTIVE: Vital Signs: Vital Signs Date Time Temp Pulse Resp B/P (MAP) Pulse Ox O2 Delivery O2 Flow Rate FiO2 02/01/17 07:15 98.6 76 20 137/71 (93) 94 Room Air 98.6 02/01/17 02:46 98.6 95 20 121/75 (90) 93 Room Air 98.6 01/31/17 23:29 99.2 80 18 99/61 (74) 93 Room Air 99.2 01/31/17 21:40 16 Room Air 01/31/17 21:06 16 Room Air 01/31/17 20:00 Room Air 01/31/17 19:12 99.5 92 18 116/72 (87) 93 Room Air 99.5 01/31/17 18:45 Room Air 01/31/17 17:44 Room Air 01/31/17 15:00 97.9 84 18 116/74 (88) 96 Room Air 97.9 01/31/17 11:09 Room Air 01/31/17 11:05 98.6 85 18 96/64 (75) 96 Room Air 98.6 01/31/17 09:30 Room Air I & O Intake and Output 02/01/17 07:00 Intake Total 0 ml Output Total 2450 ml Balance -2450 ml Intake Oral 0 ml Output Urine Total 2450 ml PHYSICAL EXAM: Physical Exam: PHYSICAL EXAMINATION: GENERAL: Gen. appearance: No acute distress. Mood/affect: Pleasant. HEENT: Head: Normocephalic, atraumatic. Airway Impairment: No. CHEST: Shape and expansion: Normal. Expansion: Normal. SKIN: General: Warm. Color: Good. GENITOURINARY:External genitalia - wnl. NEUROLOGICAL: Mental status: Alert and oriented 3. Language: Normal. LABS: Laboratory Tests Test 01/29/17 16:58 01/29/17 18:10 01/30/17 04:02 01/31/17 03:20 Urine Collection Type Unknown Urine Color Yellow Urine Clarity Turbid Urine pH 6.0 Urine Specific [place] 1.015 Urine Protein 100 mg/dL (NEG-TRACE) Urine Glucose (UA) Negative mg/dL (NEG) Urine Ketones (Stick) Negative mg/dL (NEG) Urine Blood Large (NEG) Urine Nitrite Positive (NEG) Urine Bilirubin Negative (NEG) Urine Urobilinogen Dipstick 0.2 mg/dL (0.2 mg/dL) Urine Leukocyte Esterase Large (NEG) Urine RBC >40 /HPF (0-2) Urine WBC Tntc /HPF (0-4) Urine Bacteria Many /HPF (0-FEW) White Blood Count 16.1 x10^3/uL (4.0-11.0) 20.9 x10^3/uL (4.0-11.0) 19.8 x10^3/uL (4.0-11.0) Red Blood Count 4.51 x10^6/uL (4.30-5.70) 4.16 x10^6/uL (4.30-5.70) 3.78 x10^6/uL (4.30-5.70) Hemoglobin 13.6 g/dL (13.0-17.5) 12.7 g/dL (13.0-17.5) 11.5 g/dL (13.0-17.5) Hematocrit 40.7 % (39.0-53.0) 37.7 % (39.0-53.0) 34.5 % (39.0-53.0) Mean Corpuscular Volume 90 fL (79-100) 91 fL (79-100) 91 fL (79-100) Mean Corpuscular Hemoglobin 30 pg (25-35) 31 pg (25-35) 30 pg (25-35) Mean Corpuscular Hemoglobin Concent 33 g/dL (31-37) 34 g/dL (31-37) 33 g/dL (31-37) Red Cell Distribution Width 14.4 % (11.5-14.5) 14.1 % (11.5-14.5) 14.4 % (11.5-14.5) Platelet Count 319 x10^3/uL (140-400) 296 x10^3/uL (140-400) 231 x10^3/uL (140-400) Neutrophils (%) (Auto) 75 % (31-73) 83 % (31-73) 84 % (31-73) Lymphocytes (%) (Auto) 12 % (24-48) 6 % (24-48) 8 % (24-48) Monocytes (%) (Auto) 12 % (0-9) 11 % (0-9) 8 % (0-9) Eosinophils (%) (Auto) 0 % (0-3) 0 % (0-3) 0 % (0-3) Basophils (%) (Auto) 0 % (0-3) 0 % (0-3) 0 % (0-3) Neutrophils # (Auto) 12.1 x10^3uL (1.8-7.7) 17.5 x10^3uL (1.8-7.7) 16.6 x10^3uL (1.8-7.7) Lymphocytes # (Auto) 2.0 x10^3/uL (1.0-4.8) 1.2 x10^3/uL (1.0-4.8) 1.5 x10^3/uL (1.0-4.8) Monocytes # (Auto) 1.9 x10^3/uL (0.0-1.1) 2.2 x10^3/uL (0.0-1.1) 1.5 x10^3/uL (0.0-1.1) Eosinophils # (Auto) 0.0 x10^3/uL (0.0-0.7) 0.0 x10^3/uL (0.0-0.7) 0.1 x10^3/uL (0.0-0.7) Basophils # (Auto) 0.1 x10^3/uL (0.0-0.2) 0.1 x10^3/uL (0.0-0.2) 0.0 x10^3/uL (0.0-0.2) Sodium Level 132 mmol/L (136-145) 132 mmol/L (136-145) 137 mmol/L (136-145) Potassium Level 3.9 mmol/L (3.5-5.1) 3.5 mmol/L (3.5-5.1) 3.3 mmol/L (3.5-5.1) Chloride Level 99 mmol/L (98-107) 99 mmol/L (98-107) 104 mmol/L (98-107) Carbon Dioxide Level 26 mmol/L (21-32) 21 mmol/L (21-32) 25 mmol/L (21-32) Anion Gap 7 (6-14) 12 (6-14) 8 (6-14) Blood Urea Nitrogen 18 mg/dL (8-26) 18 mg/dL (8-26) 20 mg/dL (8-26) Creatinine 1.5 mg/dL (0.7-1.3) 1.5 mg/dL (0.7-1.3) 1.4 mg/dL (0.7-1.3) Estimated GFR (Cockcroft-Gault) 47.6 47.6 51.5 BUN/Creatinine Ratio 12 (6-20) Glucose Level 110 mg/dL (70-99) 95 mg/dL (70-99) 115 mg/dL (70-99) Calcium Level 9.0 mg/dL (8.5-10.1) 8.6 mg/dL (8.5-10.1) 8.0 mg/dL (8.5-10.1) Total Bilirubin 1.0 mg/dL (0.2-1.0) Aspartate Amino Transf (AST/SGOT) 24 U/L (15-37) Alanine Aminotransferase (ALT/SGPT) 46 U/L (16-63) Alkaline Phosphatase 77 U/L (46-116) Total Protein 8.1 g/dL (6.4-8.2) Albumin 3.0 g/dL (3.4-5.0) Albumin/Globulin Ratio 0.6 (1.0-1.7) Segmented Neutrophils % 77 % (35-66) Band Neutrophils % 8 % (0-9) Lymphocytes % 4 % (24-48) Monocytes % 11 % (0-10) Toxic Granulation Present Toxic Vacuolation Present Platelet Estimate Adequate (ADEQUATE) Test 02/01/17 03:25 White Blood Count 11.6 x10^3/uL (4.0-11.0) Red Blood Count 3.88 x10^6/uL (4.30-5.70) Hemoglobin 11.5 g/dL (13.0-17.5) Hematocrit 35.2 % (39.0-53.0) Mean Corpuscular Volume 91 fL (79-100) Mean Corpuscular Hemoglobin 30 pg (25-35) Mean Corpuscular Hemoglobin Concent 33 g/dL (31-37) Red Cell Distribution Width 14.6 % (11.5-14.5) Platelet Count 244 x10^3/uL (140-400) Neutrophils (%) (Auto) 81 % (31-73) Lymphocytes (%) (Auto) 11 % (24-48) Monocytes (%) (Auto) 7 % (0-9) Eosinophils (%) (Auto) 1 % (0-3) Basophils (%) (Auto) 0 % (0-3) Neutrophils # (Auto) 9.4 x10^3uL (1.8-7.7) Lymphocytes # (Auto) 1.3 x10^3/uL (1.0-4.8) Monocytes # (Auto) 0.9 x10^3/uL (0.0-1.1) Eosinophils # (Auto) 0.1 x10^3/uL (0.0-0.7) Basophils # (Auto) 0.0 x10^3/uL (0.0-0.2) Sodium Level 136 mmol/L (136-145) Potassium Level 4.3 mmol/L (3.5-5.1) Chloride Level 103 mmol/L (98-107) Carbon Dioxide Level 22 mmol/L (21-32) Anion Gap 11 (6-14) Blood Urea Nitrogen 17 mg/dL (8-26) Creatinine 1.3 mg/dL (0.7-1.3) Estimated GFR (Cockcroft-Gault) 56.1 Glucose Level 136 mg/dL (70-99) Calcium Level 8.0 mg/dL (8.5-10.1) Magnesium Level 1.5 mg/dL (1.8-2.4) Microbiology 01/29/17 Blood Culture - Preliminary, Resulted NO GROWTH AFTER 1 DAY 01/29/17 Urine Culture - Final, Complete 01/29/17 Urine Culture Result 1 (ROSANGELA) - Final, Complete 01/29/17 Antimicrobic Susceptibility - Final, Complete MEDICATIONS: Current Medications Medications (Trade) Dose Ordered Sig/Annie Start Time Stop Time Status Last Admin Dose Admin Acetaminophen (Tylenol) 650 mg PRN Q6HRS PRN 01/30/17 08:45 01/31/17 08:57 650 MG Cefepime HCl 1 gm/ Sodium Chloride 50 ml @ 100 mls/hr 1X ONCE 01/29/17 20:15 01/29/17 20:44 DC 01/29/17 20:15 100 MLS/HR Docusate Sodium (Colace) 100 mg DAILY 02/01/17 09:00 Doxycycline Hyclate 100 mg/ Dextrose 100 ml @ 50 mls/hr Q12HR 01/30/17 10:30 01/31/17 21:02 50 MLS/HR Fentanyl Citrate (Fentanyl 2ml Vial) 25 mcg PRN Q15MIN PRN 01/29/17 20:00 01/30/17 00:00 DC Ibuprofen (Motrin) 600 mg PRN Q6HRS PRN 01/30/17 03:15 01/30/17 17:47 DC 01/30/17 15:07 600 MG Ketorolac Tromethamine (Toradol) 10 mg 1X ONCE 01/29/17 18:00 01/29/17 18:01 DC 01/29/17 18:10 10 MG Magnesium Sulfate/ Dextrose 50 ml @ 25 mls/hr 1X ONCE 02/01/17 08:00 02/01/17 09:59 Morphine Sulfate 4 mg PRN Q2HR PRN 01/30/17 13:00 01/31/17 08:57 4 MG Ondansetron HCl (Zofran) 4 mg PRN Q6HRS PRN 01/30/17 08:45 Oxycodone/ Acetaminophen (Percocet 5/325) 1 tab PRN Q6HRS PRN 01/30/17 08:45 01/31/17 17:44 1 TAB Phenazopyridine HCl (Pyridium) 200 mg PRN TID PRN 01/30/17 08:45 Polyethylene Glycol (miraLAX PACKET) 17 gm DAILY 02/01/17 09:00 Potassium Acetate 40 meq/Sodium Chloride 1,020 ml @ 125 mls/hr Q8H10M 01/31/17 14:00 02/01/17 06:19 DC 02/01/17 02:05 125 MLS/HR Potassium Chloride (Klor-Con) 40 meq 1X ONCE 01/31/17 12:45 01/31/17 12:46 DC 01/31/17 12:59 40 MEQ Sodium Chloride 1,000 ml @ 125 mls/hr Q8H 02/01/17 06:20 Tamsulosin HCl (Flomax) 0.8 mg DAILY 01/30/17 09:00 01/31/17 08:57 0.8 MG ASSESSMENT & PLAN Problem List: Problems Medical Problems: (1) Pyelonephritis Status: Acute (2) Urinary retention Status: Acute MANUEL PATINO MD February 01, 2017 09:01
--- NOTE | 2017-02-01 10:58 | PDOC ---
PROGRESS NOTES Chief Complaint Chief Complaint 1. sepsis with Scrotal swelling and pain, epididymitis 2. bl epidemitis and bl hydroceles 3. UTI with possible pyelonephritis 4. BPH 5. CKD3 6. hypomagnesemia plan: renal, uro, id consulted dced cefepime, doxy as per ID, on levaquin US done fu ucx + pseudomonas, bcx neg pain control ivf , keep churchill, increase flomax to 0.8mg daily dvt ppx replete Mag labs daily History of Present Illness History of Present Illness abd pain better on Churchill has BPH, scrotum red, swollen ,slightly better Vitals Vitals Vital Signs Date Time Temp Pulse Resp B/P (MAP) Pulse Ox O2 Delivery O2 Flow Rate FiO2 02/01/17 09:54 Room Air 02/01/17 07:15 98.6 76 20 137/71 (93) 94 98.6 Physical Exam Physical Exam severe scrotum swelling General: Alert, Oriented X3, Cooperative, No acute distress Heart: Regular rate, Normal S1 Lungs: Clear Abdomen: Normal bowel sounds, Soft, No tenderness, Other Extremities: No clubbing, No cyanosis Labs LABS Laboratory Tests Test 02/01/17 03:25 White Blood Count 11.6 x10^3/uL (4.0-11.0) Red Blood Count 3.88 x10^6/uL (4.30-5.70) Hemoglobin 11.5 g/dL (13.0-17.5) Hematocrit 35.2 % (39.0-53.0) Mean Corpuscular Volume 91 fL (79-100) Mean Corpuscular Hemoglobin 30 pg (25-35) Mean Corpuscular Hemoglobin Concent 33 g/dL (31-37) Red Cell Distribution Width 14.6 % (11.5-14.5) Platelet Count 244 x10^3/uL (140-400) Neutrophils (%) (Auto) 81 % (31-73) Lymphocytes (%) (Auto) 11 % (24-48) Monocytes (%) (Auto) 7 % (0-9) Eosinophils (%) (Auto) 1 % (0-3) Basophils (%) (Auto) 0 % (0-3) Neutrophils # (Auto) 9.4 x10^3uL (1.8-7.7) Lymphocytes # (Auto) 1.3 x10^3/uL (1.0-4.8) Monocytes # (Auto) 0.9 x10^3/uL (0.0-1.1) Eosinophils # (Auto) 0.1 x10^3/uL (0.0-0.7) Basophils # (Auto) 0.0 x10^3/uL (0.0-0.2) Sodium Level 136 mmol/L (136-145) Potassium Level 4.3 mmol/L (3.5-5.1) Chloride Level 103 mmol/L (98-107) Carbon Dioxide Level 22 mmol/L (21-32) Anion Gap 11 (6-14) Blood Urea Nitrogen 17 mg/dL (8-26) Creatinine 1.3 mg/dL (0.7-1.3) Estimated GFR (Cockcroft-Gault) 56.1 Glucose Level 136 mg/dL (70-99) Calcium Level 8.0 mg/dL (8.5-10.1) Magnesium Level 1.5 mg/dL (1.8-2.4) Review of Systems Review of Systems no fever, chills, sob or chest pain Assessment and Plan Assessmemt and Plan Problems Medical Problems: (1) Pyelonephritis Status: Acute (2) Urinary retention Status: Acute Problems: Comment Review of Relevant I have reviewed the following items cesar (where applicable) has been applied. Labs Laboratory Tests Test 01/31/17 03:20 02/01/17 03:25 White Blood Count 19.8 x10^3/uL (4.0-11.0) 11.6 x10^3/uL (4.0-11.0) Red Blood Count 3.78 x10^6/uL (4.30-5.70) 3.88 x10^6/uL (4.30-5.70) Hemoglobin 11.5 g/dL (13.0-17.5) 11.5 g/dL (13.0-17.5) Hematocrit 34.5 % (39.0-53.0) 35.2 % (39.0-53.0) Mean Corpuscular Volume 91 fL (79-100) 91 fL (79-100) Mean Corpuscular Hemoglobin 30 pg (25-35) 30 pg (25-35) Mean Corpuscular Hemoglobin Concent 33 g/dL (31-37) 33 g/dL (31-37) Red Cell Distribution Width 14.4 % (11.5-14.5) 14.6 % (11.5-14.5) Platelet Count 231 x10^3/uL (140-400) 244 x10^3/uL (140-400) Neutrophils (%) (Auto) 84 % (31-73) 81 % (31-73) Lymphocytes (%) (Auto) 8 % (24-48) 11 % (24-48) Monocytes (%) (Auto) 8 % (0-9) 7 % (0-9) Eosinophils (%) (Auto) 0 % (0-3) 1 % (0-3) Basophils (%) (Auto) 0 % (0-3) 0 % (0-3) Neutrophils # (Auto) 16.6 x10^3uL (1.8-7.7) 9.4 x10^3uL (1.8-7.7) Lymphocytes # (Auto) 1.5 x10^3/uL (1.0-4.8) 1.3 x10^3/uL (1.0-4.8) Monocytes # (Auto) 1.5 x10^3/uL (0.0-1.1) 0.9 x10^3/uL (0.0-1.1) Eosinophils # (Auto) 0.1 x10^3/uL (0.0-0.7) 0.1 x10^3/uL (0.0-0.7) Basophils # (Auto) 0.0 x10^3/uL (0.0-0.2) 0.0 x10^3/uL (0.0-0.2) Sodium Level 137 mmol/L (136-145) 136 mmol/L (136-145) Potassium Level 3.3 mmol/L (3.5-5.1) 4.3 mmol/L (3.5-5.1) Chloride Level 104 mmol/L (98-107) 103 mmol/L (98-107) Carbon Dioxide Level 25 mmol/L (21-32) 22 mmol/L (21-32) Anion Gap 8 (6-14) 11 (6-14) Blood Urea Nitrogen 20 mg/dL (8-26) 17 mg/dL (8-26) Creatinine 1.4 mg/dL (0.7-1.3) 1.3 mg/dL (0.7-1.3) Estimated GFR (Cockcroft-Gault) 51.5 56.1 Glucose Level 115 mg/dL (70-99) 136 mg/dL (70-99) Calcium Level 8.0 mg/dL (8.5-10.1) 8.0 mg/dL (8.5-10.1) Magnesium Level 1.5 mg/dL (1.8-2.4) Laboratory Tests Test 02/01/17 03:25 White Blood Count 11.6 x10^3/uL (4.0-11.0) Red Blood Count 3.88 x10^6/uL (4.30-5.70) Hemoglobin 11.5 g/dL (13.0-17.5) Hematocrit 35.2 % (39.0-53.0) Mean Corpuscular Volume 91 fL (79-100) Mean Corpuscular Hemoglobin 30 pg (25-35) Mean Corpuscular Hemoglobin Concent 33 g/dL (31-37) Red Cell Distribution Width 14.6 % (11.5-14.5) Platelet Count 244 x10^3/uL (140-400) Neutrophils (%) (Auto) 81 % (31-73) Lymphocytes (%) (Auto) 11 % (24-48) Monocytes (%) (Auto) 7 % (0-9) Eosinophils (%) (Auto) 1 % (0-3) Basophils (%) (Auto) 0 % (0-3) Neutrophils # (Auto) 9.4 x10^3uL (1.8-7.7) Lymphocytes # (Auto) 1.3 x10^3/uL (1.0-4.8) Monocytes # (Auto) 0.9 x10^3/uL (0.0-1.1) Eosinophils # (Auto) 0.1 x10^3/uL (0.0-0.7) Basophils # (Auto) 0.0 x10^3/uL (0.0-0.2) Sodium Level 136 mmol/L (136-145) Potassium Level 4.3 mmol/L (3.5-5.1) Chloride Level 103 mmol/L (98-107) Carbon Dioxide Level 22 mmol/L (21-32) Anion Gap 11 (6-14) Blood Urea Nitrogen 17 mg/dL (8-26) Creatinine 1.3 mg/dL (0.7-1.3) Estimated GFR (Cockcroft-Gault) 56.1 Glucose Level 136 mg/dL (70-99) Calcium Level 8.0 mg/dL (8.5-10.1) Magnesium Level 1.5 mg/dL (1.8-2.4) Microbiology 01/29/17 Blood Culture - Preliminary, Resulted NO GROWTH AFTER 2 DAYS 01/29/17 Urine Culture - Final, Complete 01/29/17 Urine Culture Result 1 (ROSANGELA) - Final, Complete 01/29/17 Antimicrobic Susceptibility - Final, Complete Medications Current Medications Ketorolac Tromethamine (Toradol) 10 mg 1X ONCE IV Last administered on 18:10; Start 01/29/17 at 18:00; Stop 01/29/17 at 18:01; Status DC Sodium Chloride 1,000 ml @ 1,000 mls/hr 1X ONCE IV Last administered on 18:10; Start 01/29/17 at 18:00; Stop 01/29/17 at 18:59; Status DC Cefepime HCl 1 gm/ Sodium Chloride 50 ml @ 100 mls/hr Q8HRS IV Last administered on 01/31/17 22:53; Start 01/30/17 at 06:00; Stop 02/01/17 at 09:01; Status DC Fentanyl Citrate (Fentanyl 2ml Vial) 25 mcg PRN Q15MIN PRN IV PAIN GREATER THAN 3/10; Start 01/29/17 at 20:00; Stop 01/30/17 at 00:00; Status DC Ondansetron HCl (Zofran) 4 mg 1X ONCE IV ; Start 01/29/17 at 20:00; Stop at 20:01; Status DC Cefepime HCl 1 gm/ Sodium Chloride 50 ml @ 100 mls/hr 1X ONCE IV Last administered on 01/29/17 20:15; Start 01/29/17 at 20:15; Stop 01/29/17 at 20:44; Status DC Ondansetron HCl (Zofran) 4 mg PRN Q8HRS PRN IV NAUSEA/VOMITING; Start 01/29/17 at 23:15; Stop 01/30/17 at 23:14; Status DC Morphine Sulfate 4 mg PRN Q2HR PRN IV SEVERE PAIN Last administered on 20:25; Start 01/29/17 at 23:15; Stop 01/30/17 at 23:14; Status DC Sodium Chloride 1,000 ml @ 125 mls/hr Q8H IV Last administered on 01/30/17 06: 04; Start 01/29/17 at 23:02; Stop 01/30/17 at 13:29; Status DC Acetaminophen (Tylenol) 650 mg PRN Q4HRS PRN PO FEVER Last administered on 00:14; Start 01/29/17 at 23:15; Stop 01/30/17 at 23:14; Status DC Ibuprofen (Motrin) 600 mg PRN Q6HRS PRN PO FEVER Last administered on 01/30/17 15:07; Start 01/30/17 at 03:15; Stop 01/30/17 at 17:47; Status DC Acetaminophen (Tylenol) 650 mg PRN Q6HRS PRN PO FEVER Last administered on 08:57; Start 01/30/17 at 08:45 Ondansetron HCl (Zofran) 4 mg PRN Q6HRS PRN IV NAUSEA/VOMITING; Start 01/30/17 at 08:45 Oxycodone/ Acetaminophen (Percocet 5/325) 1 tab PRN Q6HRS PRN PO PAIN Last administered on 02/01/17 04:30; Start 01/30/17 at 08:45 Phenazopyridine HCl (Pyridium) 200 mg PRN TID PRN PO BLADDER SPASM; Start at 08:45 Tamsulosin HCl (Flomax) 0.4 mg DAILY PO ; Start 01/30/17 at 09:00; Stop 01/30/17 at 09:00; Status DC Tamsulosin HCl (Flomax) 0.8 mg DAILY PO Last administered on 02/01/17 08:59; Start 01/30/17 at 09:00 Doxycycline Hyclate 100 mg/ Dextrose 100 ml @ 50 mls/hr Q12HR IV Last administered on 02/01/17 08:57; Start 01/30/17 at 10:30; Stop 02/01/17 at 09:01; Status DC Sodium Chloride 1,000 ml @ 125 mls/hr Q8H IV Last administered on 01/31/17 06: 03; Start 01/30/17 at 13:00; Stop 01/31/17 at 13:43; Status DC Morphine Sulfate 2 mg PRN Q2HR PRN IV MODERATE PAIN Last administered on 04:00; Start 01/30/17 at 13:00 Morphine Sulfate 4 mg PRN Q2HR PRN IV SEVERE PAIN Last administered on 08:57; Start 01/30/17 at 13:00 Potassium Chloride (Klor-Con) 40 meq 1X ONCE PO Last administered on 01/31/17 12:59; Start 01/31/17 at 12:45; Stop 01/31/17 at 12:46; Status DC Polyethylene Glycol (miraLAX PACKET) 17 gm 1X ONCE PO Last administered on 01/31 13:00; Start 01/31/17 at 13:00; Stop 01/31/17 at 13:01; Status DC Polyethylene Glycol (miraLAX PACKET) 17 gm DAILY PO Last administered on 08:58; Start 02/01/17 at 09:00 Docusate Sodium (Colace) 100 mg DAILY PO Last administered on 02/01/17 08:59; Start 02/01/17 at 09:00 Potassium Acetate 40 meq/Sodium Chloride 1,020 ml @ 125 mls/hr Q8H10M IV Last administered on 02/01/17 02:05; Start 01/31/17 at 14:00; Stop 02/01/17 at 06:19; Status DC Magnesium Sulfate/ Dextrose 50 ml @ 25 mls/hr PRN DAILY PRN IV for Mag < 1.7 on am labs; Start 01/31/17 at 13:45 Sodium Chloride 1,000 ml @ 125 mls/hr Q8H IV ; Start 02/01/17 at 06:20 Magnesium Sulfate/ Dextrose 50 ml @ 25 mls/hr 1X ONCE IV Last administered on 02/01/17 08:56; Start 02/01/17 at 08:00; Stop 02/01/17 at 09:59; Status DC Levofloxacin (Levaquin) 750 mg DAILY06 PO Last administered on 02/01/17t 09:51; Start 02/01/17 at 09:00 Active Scripts Active Bactrim Ds Tablet (Sulfamethoxazole/Trimethoprim) 1 Each Tablet 1 Tab PO BID Pyridium (Phenazopyridine Hcl) 200 Mg Tablet 200 Mg PO TID PRN Naproxen 375 Mg Tablet 375 Mg PO BID Percocet 5-325 Mg Tablet (Oxycodone/Acetaminophen) 1 Each Tablet 1 Tab PO PRN Q6HRS PRN Reported Cialis (Tadalafil) 5 Mg Tablet Vitamin D2 (Ergocalciferol (Vitamin D2)) 50,000 Unit Capsule Dutasteride 0.5 Mg Capsule Flomax (Tamsulosin Hcl) 0.4 Mg Cap.er.24h 1 Cap PO DAILY Propranolol Hcl 20 Mg Tablet Vitals/I & O Vital Sign - Last 24 Hours 01/31/17 01/31/17 01/31/17 01/31/17 11:05 11:09 15:00 17:44 Temp 98.6 97.9 98.6 97.9 Pulse 85 84 Resp 18 18 B/P (MAP) 96/64 (75) 116/74 (88) Pulse Ox 96 96 O2 Delivery Room Air Room Air Room Air Room Air 01/31/17 01/31/17 01/31/17 01/31/17 18:45 19:12 20:00 21:06 Temp 99.5 99.5 Pulse 92 Resp 18 16 B/P (MAP) 116/72 (87) Pulse Ox 93 O2 Delivery Room Air Room Air Room Air Room Air 01/31/17 01/31/17 02/01/17 02/01/17 21:40 23:29 02:46 07:15 Temp 99.2 98.6 98.6 99.2 98.6 98.6 Pulse 80 95 76 Resp 16 18 20 20 B/P (MAP) 99/61 (74) 121/75 (90) 137/71 (93) Pulse Ox 93 93 94 O2 Delivery Room Air Room Air Room Air 02/01/17 02/01/17 08:58 09:54 O2 Delivery Room Air Room Air Intake and Output 01/31/17 01/31/17 02/01/17 15:00 23:00 07:00 Intake Total 0 ml Output Total 900 ml 1550 ml Balance -900 ml -1550 ml TASHA APODACA MD February 01, 2017 10:58
[2017-02-01 11:19] VITALS: BP 111/69
[2017-02-01 15:15] VITALS: BP 118/77
--- NOTE | 2017-02-01 16:33 | RAD ---
Indication follow-up epididymitis. Grayscale color Doppler and spectral imaging was performed. The examination was targeted to the scrotum. Note is made of a previous examination 2 days ago. The right testicle measures approximately 4 x 3 x 3.3 cm. No mass is seen. There is increased vascularity to the testicle. The epididymis is enlarged. There is substantial increased flow to the epididymis as well. Findings remain consistent with epididymal orchitis. Complex fluid in the right hemiscrotum is noted again similar to the previous exam. Left testicle measures 3.2 x 2.8 x 3.3 cm. There is increased vascularity to the testicle and epididymis and again findings remain compatible with epididymal orchitis. A left hydrocele is noted but septations in the left hemiscrotum are not as pronounced as previously. IMPRESSION: Findings remain compatible with inflammation of the testicles and epididymides (epididymal orchitis) similar to the previous exam. Septations, consistent with a complex right hydrocele appears similar. The left hydrocele does not appear to be is complex as on the study 2 days previously
[2017-02-01 19:10] VITALS: BP 121/79
[2017-02-01 23:08] VITALS: BP 141/73
[2017-02-02] MEDS: oxyCODONE/APAP 5/325 1 TAB TABLET PO PRN ×3 (00:48→21:02)
[2017-02-02 03:12] VITALS: BP 109/55
[2017-02-02] MEDS: MORPHINE SULFATE 2 MG/ML DISP.SYRIN. IV PRN (03:54)
[2017-02-02 04:56] LABS: BASO % 0 % (0-3); EOS % 2 % (0-3); HEMATOCRIT 36.3 % (39.0-53.0); HEMOGLOBIN 12.3 g/dL (13.0-17.5); LYMPH # 1.3 x10^3/uL (1.0-4.8); LYMPH % 16 % (24-48); MEAN CORPUSCULAR HEMOGLOBIN 31 pg (25-35); MEAN CORPUSCULAR HGB CONC 34 g/dL (31-37); MEAN CORPUSCULAR VOLUME 90 fL (79-100); MONO % 10 % (0-9); NEUT % 72 % (31-73); PLATELET COUNT 259 x10^3/uL (140-400); RED BLOOD COUNT 4.05 x10^6/uL (4.30-5.70); RED CELL DISTRIBUTION WIDTH 14.2 % (11.5-14.5); WHITE BLOOD COUNT 8.2 x10^3/uL (4.0-11.0)
[2017-02-02 05:21] LABS: CALCIUM 8.4 mg/dL (8.5-10.1); CREATININE 1.3 mg/dL (0.7-1.3); GFR 56.1; POTASSIUM 4.2 mmol/L (3.5-5.1)
[2017-02-02 07:00] VITALS: BP 129/80
--- NOTE | 2017-02-02 08:52 | PDOC ---
Infectious Disease Note Subjective Subjective feeling better, less pain and swelling ROS ROS GEN: Denies fevers, chills, sweats HEENT: Denies blurred vision, sore throat CV: Denies chest pain RESP: Denies shortness of air, cough GI: Denies n/v/d NEURO: Denies confusion, dizziness MSK: Denies weakness, joint pain/swelling Vital Sign Vital Signs Vital Signs Date Time Temp Pulse Resp B/P (MAP) Pulse Ox O2 Delivery O2 Flow Rate FiO2 02/02/17 07:00 98.4 68 20 129/80 (96) 95 Room Air 98.4 Physical Exam PHYSICAL EXAM GENERAL: NAD, Alert HEENT: PERRL, OC/OP NECK: Supple, no JVD, no LN LUNGS: Clear HEART: S1S2, no gallop, no murmur ABD: Soft, NT, no organomegaly, no rebound EXT: No edema, no cyanosis RADIOLOGIST DIAGNOSTIC: Alert, 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, no focal neurologic deficit SKIN: No rash IV: ok Labs Lab Laboratory Tests Test 02/02/17 02:50 02/02/17 02:55 White Blood Count 8.2 x10^3/uL (4.0-11.0) Red Blood Count 4.05 x10^6/uL (4.30-5.70) Hemoglobin 12.3 g/dL (13.0-17.5) Hematocrit 36.3 % (39.0-53.0) Mean Corpuscular Volume 90 fL (79-100) Mean Corpuscular Hemoglobin 31 pg (25-35) Mean Corpuscular Hemoglobin Concent 34 g/dL (31-37) Red Cell Distribution Width 14.2 % (11.5-14.5) Platelet Count 259 x10^3/uL (140-400) Neutrophils (%) (Auto) 72 % (31-73) Lymphocytes (%) (Auto) 16 % (24-48) Monocytes (%) (Auto) 10 % (0-9) Eosinophils (%) (Auto) 2 % (0-3) Basophils (%) (Auto) 0 % (0-3) Neutrophils # (Auto) 5.8 x10^3uL (1.8-7.7) Lymphocytes # (Auto) 1.3 x10^3/uL (1.0-4.8) Monocytes # (Auto) 0.8 x10^3/uL (0.0-1.1) Eosinophils # (Auto) 0.2 x10^3/uL (0.0-0.7) Basophils # (Auto) 0.0 x10^3/uL (0.0-0.2) Sodium Level 137 mmol/L (136-145) Potassium Level 4.2 mmol/L (3.5-5.1) Chloride Level 103 mmol/L (98-107) Carbon Dioxide Level 24 mmol/L (21-32) Anion Gap 10 (6-14) Blood Urea Nitrogen 19 mg/dL (8-26) Creatinine 1.3 mg/dL (0.7-1.3) Estimated GFR (Cockcroft-Gault) 56.1 Glucose Level 85 mg/dL (70-99) Calcium Level 8.4 mg/dL (8.5-10.1) Magnesium Level 2.0 mg/dL (1.8-2.4) Micro URINE CULTURE Final Final report URINE CULTURE RES 1 Final Comment Pseudomonas aeruginosa Greater than 100,000 colony forming units per mL ANTIMICROBIAL SUSCEPTIBILITY Final Comment S = Susceptible; I = Intermediate; R = Resistant P = Positive; N = Negative MICS are expressed in micrograms per mL Antibiotic RSLT#1 RSLT#2 RSLT#3 RSLT#4 Amikacin S Cefepime S Ceftazidime S Ciprofloxacin S Gentamicin S Imipenem S Levofloxacin S Meropenem S Piperacillin S Ticarcillin S Tobramycin S Performed at: [address] [id number] Chalk Cutter: Yolie Edward MD, Phone: [phone] Objective Assessment Scrotal swelling and pain, epididymitis Fever and leukocytosis h/o kidney stones UTI with possible pyelonephritis Plan Plan of Care po levaquin ( cipro with upper chest mus spasms ??) supportive care KISHOR BLANCO MD February 02, 2017 08:52
--- NOTE | 2017-02-02 08:57 | PDOC ---
PROGRESS NOTES Subjective Subjective Pt. feeling better Objective Objective Vital Signs Date Time Temp Pulse Resp B/P (MAP) Pulse Ox O2 Delivery O2 Flow Rate FiO2 02/02/17 07:00 98.4 68 20 129/80 (96) 95 Room Air 98.4 Intake and Output 02/02/17 07:00 Intake Total 2695 ml Output Total 3250 ml Balance -555 ml Intake Oral 1696 ml Other 999 ml Output Urine Total 3250 ml Physical Exam Physical Exam scrotal swelling decreased Plan Plan of Care continue abs and scrotal elevation would recommend keeping pt. in hospital for now I will recheck pt. again on 02/04/17 Problems Medical Problems: (1) Pyelonephritis Status: Acute (2) Urinary retention Status: Acute Comment Review of Relevant I have reviewed the following items cesar (where applicable) has been applied. Labs Laboratory Tests Test 02/01/17 03:25 02/02/17 02:50 02/02/17 02:55 White Blood Count 11.6 x10^3/uL (4.0-11.0) 8.2 x10^3/uL (4.0-11.0) Red Blood Count 3.88 x10^6/uL (4.30-5.70) 4.05 x10^6/uL (4.30-5.70) Hemoglobin 11.5 g/dL (13.0-17.5) 12.3 g/dL (13.0-17.5) Hematocrit 35.2 % (39.0-53.0) 36.3 % (39.0-53.0) Mean Corpuscular Volume 91 fL (79-100) 90 fL (79-100) Mean Corpuscular Hemoglobin 30 pg (25-35) 31 pg (25-35) Mean Corpuscular Hemoglobin Concent 33 g/dL (31-37) 34 g/dL (31-37) Red Cell Distribution Width 14.6 % (11.5-14.5) 14.2 % (11.5-14.5) Platelet Count 244 x10^3/uL (140-400) 259 x10^3/uL (140-400) Neutrophils (%) (Auto) 81 % (31-73) 72 % (31-73) Lymphocytes (%) (Auto) 11 % (24-48) 16 % (24-48) Monocytes (%) (Auto) 7 % (0-9) 10 % (0-9) Eosinophils (%) (Auto) 1 % (0-3) 2 % (0-3) Basophils (%) (Auto) 0 % (0-3) 0 % (0-3) Neutrophils # (Auto) 9.4 x10^3uL (1.8-7.7) 5.8 x10^3uL (1.8-7.7) Lymphocytes # (Auto) 1.3 x10^3/uL (1.0-4.8) 1.3 x10^3/uL (1.0-4.8) Monocytes # (Auto) 0.9 x10^3/uL (0.0-1.1) 0.8 x10^3/uL (0.0-1.1) Eosinophils # (Auto) 0.1 x10^3/uL (0.0-0.7) 0.2 x10^3/uL (0.0-0.7) Basophils # (Auto) 0.0 x10^3/uL (0.0-0.2) 0.0 x10^3/uL (0.0-0.2) Sodium Level 136 mmol/L (136-145) 137 mmol/L (136-145) Potassium Level 4.3 mmol/L (3.5-5.1) 4.2 mmol/L (3.5-5.1) Chloride Level 103 mmol/L (98-107) 103 mmol/L (98-107) Carbon Dioxide Level 22 mmol/L (21-32) 24 mmol/L (21-32) Anion Gap 11 (6-14) 10 (6-14) Blood Urea Nitrogen 17 mg/dL (8-26) 19 mg/dL (8-26) Creatinine 1.3 mg/dL (0.7-1.3) 1.3 mg/dL (0.7-1.3) Estimated GFR (Cockcroft-Gault) 56.1 56.1 Glucose Level 136 mg/dL (70-99) 85 mg/dL (70-99) Calcium Level 8.0 mg/dL (8.5-10.1) 8.4 mg/dL (8.5-10.1) Magnesium Level 1.5 mg/dL (1.8-2.4) 2.0 mg/dL (1.8-2.4) Laboratory Tests Test 02/02/17 02:50 02/02/17 02:55 White Blood Count 8.2 x10^3/uL (4.0-11.0) Red Blood Count 4.05 x10^6/uL (4.30-5.70) Hemoglobin 12.3 g/dL (13.0-17.5) Hematocrit 36.3 % (39.0-53.0) Mean Corpuscular Volume 90 fL (79-100) Mean Corpuscular Hemoglobin 31 pg (25-35) Mean Corpuscular Hemoglobin Concent 34 g/dL (31-37) Red Cell Distribution Width 14.2 % (11.5-14.5) Platelet Count 259 x10^3/uL (140-400) Neutrophils (%) (Auto) 72 % (31-73) Lymphocytes (%) (Auto) 16 % (24-48) Monocytes (%) (Auto) 10 % (0-9) Eosinophils (%) (Auto) 2 % (0-3) Basophils (%) (Auto) 0 % (0-3) Neutrophils # (Auto) 5.8 x10^3uL (1.8-7.7) Lymphocytes # (Auto) 1.3 x10^3/uL (1.0-4.8) Monocytes # (Auto) 0.8 x10^3/uL (0.0-1.1) Eosinophils # (Auto) 0.2 x10^3/uL (0.0-0.7) Basophils # (Auto) 0.0 x10^3/uL (0.0-0.2) Sodium Level 137 mmol/L (136-145) Potassium Level 4.2 mmol/L (3.5-5.1) Chloride Level 103 mmol/L (98-107) Carbon Dioxide Level 24 mmol/L (21-32) Anion Gap 10 (6-14) Blood Urea Nitrogen 19 mg/dL (8-26) Creatinine 1.3 mg/dL (0.7-1.3) Estimated GFR (Cockcroft-Gault) 56.1 Glucose Level 85 mg/dL (70-99) Calcium Level 8.4 mg/dL (8.5-10.1) Magnesium Level 2.0 mg/dL (1.8-2.4) Microbiology 01/29/17 Blood Culture - Preliminary, Resulted NO GROWTH AFTER 2 DAYS 01/29/17 Urine Culture - Final, Complete 01/29/17 Urine Culture Result 1 (ROSANGELA) - Final, Complete 01/29/17 Antimicrobic Susceptibility - Final, Complete Medications Current Medications Ketorolac Tromethamine (Toradol) 10 mg 1X ONCE IV Last administered on 18:10; Start 01/29/17 at 18:00; Stop 01/29/17 at 18:01; Status DC Sodium Chloride 1,000 ml @ 1,000 mls/hr 1X ONCE IV Last administered on 18:10; Start 01/29/17 at 18:00; Stop 01/29/17 at 18:59; Status DC Cefepime HCl 1 gm/ Sodium Chloride 50 ml @ 100 mls/hr Q8HRS IV Last administered on 01/31/17 22:53; Start 01/30/17 at 06:00; Stop 02/01/17 at 09:01; Status DC Fentanyl Citrate (Fentanyl 2ml Vial) 25 mcg PRN Q15MIN PRN IV PAIN GREATER THAN 3/10; Start 01/29/17 at 20:00; Stop 01/30/17 at 00:00; Status DC Ondansetron HCl (Zofran) 4 mg 1X ONCE IV ; Start 01/29/17 at 20:00; Stop at 20:01; Status DC Cefepime HCl 1 gm/ Sodium Chloride 50 ml @ 100 mls/hr 1X ONCE IV Last administered on 01/29/17 20:15; Start 01/29/17 at 20:15; Stop 01/29/17 at 20:44; Status DC Ondansetron HCl (Zofran) 4 mg PRN Q8HRS PRN IV NAUSEA/VOMITING; Start 01/29/17 at 23:15; Stop 01/30/17 at 23:14; Status DC Morphine Sulfate 4 mg PRN Q2HR PRN IV SEVERE PAIN Last administered on 20:25; Start 01/29/17 at 23:15; Stop 01/30/17 at 23:14; Status DC Sodium Chloride 1,000 ml @ 125 mls/hr Q8H IV Last administered on 01/30/17 06: 04; Start 01/29/17 at 23:02; Stop 01/30/17 at 13:29; Status DC Acetaminophen (Tylenol) 650 mg PRN Q4HRS PRN PO FEVER Last administered on 00:14; Start 01/29/17 at 23:15; Stop 01/30/17 at 23:14; Status DC Ibuprofen (Motrin) 600 mg PRN Q6HRS PRN PO FEVER Last administered on 01/30/17 15:07; Start 01/30/17 at 03:15; Stop 01/30/17 at 17:47; Status DC Acetaminophen (Tylenol) 650 mg PRN Q6HRS PRN PO FEVER Last administered on 08:57; Start 01/30/17 at 08:45 Ondansetron HCl (Zofran) 4 mg PRN Q6HRS PRN IV NAUSEA/VOMITING; Start 01/30/17 at 08:45 Oxycodone/ Acetaminophen (Percocet 5/325) 1 tab PRN Q6HRS PRN PO PAIN Last administered on 02/02/17 00:48; Start 01/30/17 at 08:45 Phenazopyridine HCl (Pyridium) 200 mg PRN TID PRN PO BLADDER SPASM; Start at 08:45 Tamsulosin HCl (Flomax) 0.4 mg DAILY PO ; Start 01/30/17 at 09:00; Stop 01/30/17 at 09:00; Status DC Tamsulosin HCl (Flomax) 0.8 mg DAILY PO Last administered on 02/01/17 08:59; Start 01/30/17 at 09:00 Doxycycline Hyclate 100 mg/ Dextrose 100 ml @ 50 mls/hr Q12HR IV Last administered on 02/01/17 08:57; Start 01/30/17 at 10:30; Stop 02/01/17 at 09:01; Status DC Sodium Chloride 1,000 ml @ 125 mls/hr Q8H IV Last administered on 01/31/17 06: 03; Start 01/30/17 at 13:00; Stop 01/31/17 at 13:43; Status DC Morphine Sulfate 2 mg PRN Q2HR PRN IV MODERATE PAIN Last administered on 03:54; Start 01/30/17 at 13:00 Morphine Sulfate 4 mg PRN Q2HR PRN IV SEVERE PAIN Last administered on 08:57; Start 01/30/17 at 13:00 Potassium Chloride (Klor-Con) 40 meq 1X ONCE PO Last administered on 01/31/17 12:59; Start 01/31/17 at 12:45; Stop 01/31/17 at 12:46; Status DC Polyethylene Glycol (miraLAX PACKET) 17 gm 1X ONCE PO Last administered on 01/31 13:00; Start 01/31/17 at 13:00; Stop 01/31/17 at 13:01; Status DC Polyethylene Glycol (miraLAX PACKET) 17 gm DAILY PO Last administered on 08:58; Start 02/01/17 at 09:00 Docusate Sodium (Colace) 100 mg DAILY PO Last administered on 02/01/17 08:59; Start 02/01/17 at 09:00 Potassium Acetate 40 meq/Sodium Chloride 1,020 ml @ 125 mls/hr Q8H10M IV Last administered on 02/01/17 02:05; Start 01/31/17 at 14:00; Stop 02/01/17 at 06:19; Status DC Magnesium Sulfate/ Dextrose 50 ml @ 25 mls/hr PRN DAILY PRN IV for Mag < 1.7 on am labs; Start 01/31/17 at 13:45 Sodium Chloride 1,000 ml @ 125 mls/hr Q8H IV Last administered on 02/01/17 22: 35; Start 02/01/17 at 06:20 Magnesium Sulfate/ Dextrose 50 ml @ 25 mls/hr 1X ONCE IV Last administered on 02/01/17 08:56; Start 02/01/17 at 08:00; Stop 02/01/17 at 09:59; Status DC Levofloxacin (Levaquin) 750 mg DAILY06 PO Last administered on 02/02/17 05:32; Start 02/01/17 at 09:00 Active Scripts Active Bactrim Ds Tablet (Sulfamethoxazole/Trimethoprim) 1 Each Tablet 1 Tab PO BID Pyridium (Phenazopyridine Hcl) 200 Mg Tablet 200 Mg PO TID PRN Naproxen 375 Mg Tablet 375 Mg PO BID Percocet 5-325 Mg Tablet (Oxycodone/Acetaminophen) 1 Each Tablet 1 Tab PO PRN Q6HRS PRN Reported Cialis (Tadalafil) 5 Mg Tablet Vitamin D2 (Ergocalciferol (Vitamin D2)) 50,000 Unit Capsule Dutasteride 0.5 Mg Capsule Flomax (Tamsulosin Hcl) 0.4 Mg Cap.er.24h 1 Cap PO DAILY Propranolol Hcl 20 Mg Tablet Vitals/I & O Vital Sign - Last 24 Hours 02/01/17 02/01/17 02/01/17 02/01/17 08:58 11:19 15:15 16:11 Temp 98.1 97.9 98.1 97.9 Pulse 68 71 Resp 18 20 B/P (MAP) 111/69 (83) 118/77 (91) Pulse Ox 95 96 O2 Delivery Room Air Room Air Room Air Room Air 02/01/17 02/01/17 02/01/17 02/01/17 18:03 19:10 19:56 20:00 Temp 98.6 98.6 Pulse 70 Resp 20 16 B/P (MAP) 121/79 (93) Pulse Ox 96 O2 Delivery Room Air Room Air Room Air Room Air 02/01/17 02/02/17 02/02/17 02/02/17 23:08 00:48 01:50 03:12 Temp 98.8 98.0 98.8 98.0 Pulse 70 82 Resp 18 16 16 18 B/P (MAP) 141/73 (95) 109/55 (73) Pulse Ox 98 97 O2 Delivery Room Air Room Air Room Air Room Air 02/02/17 02/02/17 02/02/17 03:54 04:30 07:00 Temp 98.4 98.4 Pulse 68 Resp 14 16 20 B/P (MAP) 129/80 (96) Pulse Ox 95 O2 Delivery Room Air Room Air Room Air Intake and Output 02/01/17 02/01/17 02/02/17 15:00 23:00 07:00 Intake Total 721 ml 975 ml 999 ml Output Total 1950 ml 1300 ml Balance 721 ml -975 ml -301 ml MANUEL PATINO MD February 02, 2017 08:57
[2017-02-02] MEDS: POLYETHYLENE GLYCOL 3350 17 GM PACKET. PO SCH (09:29)
[2017-02-02] MEDS: TAMSULOSIN 0.4 MG CAP.ER.24H. PO SCH (09:29)
[2017-02-02] MEDS: DOCUSATE SODIUM 100 MG CAPSULE. PO SCH (09:29)
[2017-02-02] MEDS: IV NORMAL SALINE 1000ML BAG 1,000 ML IV SCH ×2 (09:43→18:03)
[2017-02-02 11:00] VITALS: BP 132/88
--- NOTE | 2017-02-02 11:24 | PDOC ---
SUBJECTIVE ROS DEZ Doing and feeling better today OBJECTIVE Vital Signs Vital Signs Date Time Temp Pulse Resp B/P (MAP) Pulse Ox O2 Delivery O2 Flow Rate FiO2 02/02/17 08:00 Room Air 02/02/17 07:00 98.4 68 20 129/80 (96) 95 98.4 I & 0 Intake and Output 02/02/17 07:00 Intake Total 2695 ml Output Total 3250 ml Balance -555 ml Intake Oral 1696 ml Other 999 ml Output Urine Total 3250 ml PHYSICAL EXAM Physical Exam General Appearance: Awake: Alert Oriented x 3 Neck: No JVD or JVP Chest: CTA [place] Heart: S1 S2 Abdomen - Soft NTND Extremities - No Edema DIAGNOSIS/ASSESSMENT Assessment & Plan DEZ - now resolved D/c IVF and Pérez (per URO) Problems: COMMENT/RELEVANT DATA Meds Current Medications Medications (Trade) Dose Ordered Sig/Annie Start Time Stop Time Status Last Admin Dose Admin Acetaminophen (Tylenol) 650 mg PRN Q6HRS PRN 01/30/17 08:45 01/31/17 08:57 650 MG Cefepime HCl 1 gm/ Sodium Chloride 50 ml @ 100 mls/hr 1X ONCE 01/29/17 20:15 01/29/17 20:44 DC 01/29/17 20:15 100 MLS/HR Docusate Sodium (Colace) 100 mg DAILY 02/01/17 09:00 02/02/17 09:29 100 MG Doxycycline Hyclate 100 mg/ Dextrose 100 ml @ 50 mls/hr Q12HR 01/30/17 10:30 02/01/17 09:01 DC 02/01/17 08:57 50 MLS/HR Fentanyl Citrate (Fentanyl 2ml Vial) 25 mcg PRN Q15MIN PRN 01/29/17 20:00 01/30/17 00:00 DC Ibuprofen (Motrin) 600 mg PRN Q6HRS PRN 01/30/17 03:15 01/30/17 17:47 DC 01/30/17 15:07 600 MG Ketorolac Tromethamine (Toradol) 10 mg 1X ONCE 01/29/17 18:00 01/29/17 18:01 DC 01/29/17 18:10 10 MG Levofloxacin (Levaquin) 750 mg DAILY06 02/01/17 09:00 02/02/17 05:32 750 MG Magnesium Sulfate/ Dextrose 50 ml @ 25 mls/hr 1X ONCE 02/01/17 08:00 02/01/17 09:59 DC 02/01/17 08:56 25 MLS/HR Morphine Sulfate 4 mg PRN Q2HR PRN 01/30/17 13:00 01/31/17 08:57 4 MG Ondansetron HCl (Zofran) 4 mg PRN Q6HRS PRN 01/30/17 08:45 Oxycodone/ Acetaminophen (Percocet 5/325) 1 tab PRN Q6HRS PRN 01/30/17 08:45 02/02/17 00:48 1 TAB Phenazopyridine HCl (Pyridium) 200 mg PRN TID PRN 01/30/17 08:45 Polyethylene Glycol (miraLAX PACKET) 17 gm DAILY 02/01/17 09:00 02/02/17 09:29 17 GM Potassium Acetate 40 meq/Sodium Chloride 1,020 ml @ 125 mls/hr Q8H10M 01/31/17 14:00 02/01/17 06:19 DC 02/01/17 02:05 125 MLS/HR Potassium Chloride (Klor-Con) 40 meq 1X ONCE 01/31/17 12:45 01/31/17 12:46 DC 01/31/17 12:59 40 MEQ Sodium Chloride 1,000 ml @ 125 mls/hr Q8H 02/01/17 06:20 02/02/17 09:43 125 MLS/HR Tamsulosin HCl (Flomax) 0.8 mg DAILY 01/30/17 09:00 02/02/17 09:29 0.8 MG Lab Laboratory Tests Test 02/02/17 02:50 02/02/17 02:55 White Blood Count 8.2 x10^3/uL (4.0-11.0) Red Blood Count 4.05 x10^6/uL (4.30-5.70) Hemoglobin 12.3 g/dL (13.0-17.5) Hematocrit 36.3 % (39.0-53.0) Mean Corpuscular Volume 90 fL (79-100) Mean Corpuscular Hemoglobin 31 pg (25-35) Mean Corpuscular Hemoglobin Concent 34 g/dL (31-37) Red Cell Distribution Width 14.2 % (11.5-14.5) Platelet Count 259 x10^3/uL (140-400) Neutrophils (%) (Auto) 72 % (31-73) Lymphocytes (%) (Auto) 16 % (24-48) Monocytes (%) (Auto) 10 % (0-9) Eosinophils (%) (Auto) 2 % (0-3) Basophils (%) (Auto) 0 % (0-3) Neutrophils # (Auto) 5.8 x10^3uL (1.8-7.7) Lymphocytes # (Auto) 1.3 x10^3/uL (1.0-4.8) Monocytes # (Auto) 0.8 x10^3/uL (0.0-1.1) Eosinophils # (Auto) 0.2 x10^3/uL (0.0-0.7) Basophils # (Auto) 0.0 x10^3/uL (0.0-0.2) Sodium Level 137 mmol/L (136-145) Potassium Level 4.2 mmol/L (3.5-5.1) Chloride Level 103 mmol/L (98-107) Carbon Dioxide Level 24 mmol/L (21-32) Anion Gap 10 (6-14) Blood Urea Nitrogen 19 mg/dL (8-26) Creatinine 1.3 mg/dL (0.7-1.3) Estimated GFR (Cockcroft-Gault) 56.1 Glucose Level 85 mg/dL (70-99) Calcium Level 8.4 mg/dL (8.5-10.1) Magnesium Level 2.0 mg/dL (1.8-2.4) MADDI BLANCO MD February 02, 2017 11:24
--- NOTE | 2017-02-02 12:20 | PDOC ---
PROGRESS NOTES Chief Complaint Chief Complaint 1. sepsis with Scrotal swelling and pain, epididymitis 2. bl epidemitis and bl hydroceles 3. UTI with possible pyelonephritis 4. BPH 5. CKD3 6. hypomagnesemia History of Present Illness History of Present Illness abd pain better on Pérez has BPH, scrotum red, swollen ,getting better ivf , flomax t Vitals Vitals Vital Signs Date Time Temp Pulse Resp B/P (MAP) Pulse Ox O2 Delivery O2 Flow Rate FiO2 02/02/17 11:00 98.7 75 18 132/88 (103) 93 Room Air 98.7 Physical Exam Physical Exam General: Alert, Oriented X3, Cooperative, No acute distress Heart: Regular rate, Normal S1 Lungs: Clear Abdomen: Normal bowel sounds, Soft, No tenderness, Other Extremities: No clubbing, No cyanosis Labs LABS Laboratory Tests Test 02/02/17 02:50 02/02/17 02:55 White Blood Count 8.2 x10^3/uL (4.0-11.0) Red Blood Count 4.05 x10^6/uL (4.30-5.70) Hemoglobin 12.3 g/dL (13.0-17.5) Hematocrit 36.3 % (39.0-53.0) Mean Corpuscular Volume 90 fL (79-100) Mean Corpuscular Hemoglobin 31 pg (25-35) Mean Corpuscular Hemoglobin Concent 34 g/dL (31-37) Red Cell Distribution Width 14.2 % (11.5-14.5) Platelet Count 259 x10^3/uL (140-400) Neutrophils (%) (Auto) 72 % (31-73) Lymphocytes (%) (Auto) 16 % (24-48) Monocytes (%) (Auto) 10 % (0-9) Eosinophils (%) (Auto) 2 % (0-3) Basophils (%) (Auto) 0 % (0-3) Neutrophils # (Auto) 5.8 x10^3uL (1.8-7.7) Lymphocytes # (Auto) 1.3 x10^3/uL (1.0-4.8) Monocytes # (Auto) 0.8 x10^3/uL (0.0-1.1) Eosinophils # (Auto) 0.2 x10^3/uL (0.0-0.7) Basophils # (Auto) 0.0 x10^3/uL (0.0-0.2) Sodium Level 137 mmol/L (136-145) Potassium Level 4.2 mmol/L (3.5-5.1) Chloride Level 103 mmol/L (98-107) Carbon Dioxide Level 24 mmol/L (21-32) Anion Gap 10 (6-14) Blood Urea Nitrogen 19 mg/dL (8-26) Creatinine 1.3 mg/dL (0.7-1.3) Estimated GFR (Cockcroft-Gault) 56.1 Glucose Level 85 mg/dL (70-99) Calcium Level 8.4 mg/dL (8.5-10.1) Magnesium Level 2.0 mg/dL (1.8-2.4) Review of Systems Review of Systems tired, sleepy no nv,.d feels better Assessment and Plan Assessmemt and Plan Problems Medical Problems: (1) Pyelonephritis Status: Acute (2) Urinary retention Status: Acute Problems: Comment Review of Relevant I have reviewed the following items cesar (where applicable) has been applied. Labs Laboratory Tests Test 02/01/17 03:25 02/02/17 02:50 02/02/17 02:55 White Blood Count 11.6 x10^3/uL (4.0-11.0) 8.2 x10^3/uL (4.0-11.0) Red Blood Count 3.88 x10^6/uL (4.30-5.70) 4.05 x10^6/uL (4.30-5.70) Hemoglobin 11.5 g/dL (13.0-17.5) 12.3 g/dL (13.0-17.5) Hematocrit 35.2 % (39.0-53.0) 36.3 % (39.0-53.0) Mean Corpuscular Volume 91 fL (79-100) 90 fL (79-100) Mean Corpuscular Hemoglobin 30 pg (25-35) 31 pg (25-35) Mean Corpuscular Hemoglobin Concent 33 g/dL (31-37) 34 g/dL (31-37) Red Cell Distribution Width 14.6 % (11.5-14.5) 14.2 % (11.5-14.5) Platelet Count 244 x10^3/uL (140-400) 259 x10^3/uL (140-400) Neutrophils (%) (Auto) 81 % (31-73) 72 % (31-73) Lymphocytes (%) (Auto) 11 % (24-48) 16 % (24-48) Monocytes (%) (Auto) 7 % (0-9) 10 % (0-9) Eosinophils (%) (Auto) 1 % (0-3) 2 % (0-3) Basophils (%) (Auto) 0 % (0-3) 0 % (0-3) Neutrophils # (Auto) 9.4 x10^3uL (1.8-7.7) 5.8 x10^3uL (1.8-7.7) Lymphocytes # (Auto) 1.3 x10^3/uL (1.0-4.8) 1.3 x10^3/uL (1.0-4.8) Monocytes # (Auto) 0.9 x10^3/uL (0.0-1.1) 0.8 x10^3/uL (0.0-1.1) Eosinophils # (Auto) 0.1 x10^3/uL (0.0-0.7) 0.2 x10^3/uL (0.0-0.7) Basophils # (Auto) 0.0 x10^3/uL (0.0-0.2) 0.0 x10^3/uL (0.0-0.2) Sodium Level 136 mmol/L (136-145) 137 mmol/L (136-145) Potassium Level 4.3 mmol/L (3.5-5.1) 4.2 mmol/L (3.5-5.1) Chloride Level 103 mmol/L (98-107) 103 mmol/L (98-107) Carbon Dioxide Level 22 mmol/L (21-32) 24 mmol/L (21-32) Anion Gap 11 (6-14) 10 (6-14) Blood Urea Nitrogen 17 mg/dL (8-26) 19 mg/dL (8-26) Creatinine 1.3 mg/dL (0.7-1.3) 1.3 mg/dL (0.7-1.3) Estimated GFR (Cockcroft-Gault) 56.1 56.1 Glucose Level 136 mg/dL (70-99) 85 mg/dL (70-99) Calcium Level 8.0 mg/dL (8.5-10.1) 8.4 mg/dL (8.5-10.1) Magnesium Level 1.5 mg/dL (1.8-2.4) 2.0 mg/dL (1.8-2.4) Laboratory Tests Test 02/02/17 02:50 02/02/17 02:55 White Blood Count 8.2 x10^3/uL (4.0-11.0) Red Blood Count 4.05 x10^6/uL (4.30-5.70) Hemoglobin 12.3 g/dL (13.0-17.5) Hematocrit 36.3 % (39.0-53.0) Mean Corpuscular Volume 90 fL (79-100) Mean Corpuscular Hemoglobin 31 pg (25-35) Mean Corpuscular Hemoglobin Concent 34 g/dL (31-37) Red Cell Distribution Width 14.2 % (11.5-14.5) Platelet Count 259 x10^3/uL (140-400) Neutrophils (%) (Auto) 72 % (31-73) Lymphocytes (%) (Auto) 16 % (24-48) Monocytes (%) (Auto) 10 % (0-9) Eosinophils (%) (Auto) 2 % (0-3) Basophils (%) (Auto) 0 % (0-3) Neutrophils # (Auto) 5.8 x10^3uL (1.8-7.7) Lymphocytes # (Auto) 1.3 x10^3/uL (1.0-4.8) Monocytes # (Auto) 0.8 x10^3/uL (0.0-1.1) Eosinophils # (Auto) 0.2 x10^3/uL (0.0-0.7) Basophils # (Auto) 0.0 x10^3/uL (0.0-0.2) Sodium Level 137 mmol/L (136-145) Potassium Level 4.2 mmol/L (3.5-5.1) Chloride Level 103 mmol/L (98-107) Carbon Dioxide Level 24 mmol/L (21-32) Anion Gap 10 (6-14) Blood Urea Nitrogen 19 mg/dL (8-26) Creatinine 1.3 mg/dL (0.7-1.3) Estimated GFR (Cockcroft-Gault) 56.1 Glucose Level 85 mg/dL (70-99) Calcium Level 8.4 mg/dL (8.5-10.1) Magnesium Level 2.0 mg/dL (1.8-2.4) Microbiology 01/29/17 Blood Culture - Preliminary, Resulted NO GROWTH AFTER 3 DAYS 01/29/17 Urine Culture - Final, Complete 01/29/17 Urine Culture Result 1 (ROSANGELA) - Final, Complete 01/29/17 Antimicrobic Susceptibility - Final, Complete Medications Current Medications Ketorolac Tromethamine (Toradol) 10 mg 1X ONCE IV Last administered on 18:10; Start 01/29/17 at 18:00; Stop 01/29/17 at 18:01; Status DC Sodium Chloride 1,000 ml @ 1,000 mls/hr 1X ONCE IV Last administered on 18:10; Start 01/29/17 at 18:00; Stop 01/29/17 at 18:59; Status DC Cefepime HCl 1 gm/ Sodium Chloride 50 ml @ 100 mls/hr Q8HRS IV Last administered on 01/31/17 22:53; Start 01/30/17 at 06:00; Stop 02/01/17 at 09:01; Status DC Fentanyl Citrate (Fentanyl 2ml Vial) 25 mcg PRN Q15MIN PRN IV PAIN GREATER THAN 3/10; Start 01/29/17 at 20:00; Stop 01/30/17 at 00:00; Status DC Ondansetron HCl (Zofran) 4 mg 1X ONCE IV ; Start 01/29/17 at 20:00; Stop at 20:01; Status DC Cefepime HCl 1 gm/ Sodium Chloride 50 ml @ 100 mls/hr 1X ONCE IV Last administered on 01/29/17 20:15; Start 01/29/17 at 20:15; Stop 01/29/17 at 20:44; Status DC Ondansetron HCl (Zofran) 4 mg PRN Q8HRS PRN IV NAUSEA/VOMITING; Start 01/29/17 at 23:15; Stop 01/30/17 at 23:14; Status DC Morphine Sulfate 4 mg PRN Q2HR PRN IV SEVERE PAIN Last administered on 20:25; Start 01/29/17 at 23:15; Stop 01/30/17 at 23:14; Status DC Sodium Chloride 1,000 ml @ 125 mls/hr Q8H IV Last administered on 01/30/17 06: 04; Start 01/29/17 at 23:02; Stop 01/30/17 at 13:29; Status DC Acetaminophen (Tylenol) 650 mg PRN Q4HRS PRN PO FEVER Last administered on 00:14; Start 01/29/17 at 23:15; Stop 01/30/17 at 23:14; Status DC Ibuprofen (Motrin) 600 mg PRN Q6HRS PRN PO FEVER Last administered on 01/30/17 15:07; Start 01/30/17 at 03:15; Stop 01/30/17 at 17:47; Status DC Acetaminophen (Tylenol) 650 mg PRN Q6HRS PRN PO FEVER Last administered on 08:57; Start 01/30/17 at 08:45 Ondansetron HCl (Zofran) 4 mg PRN Q6HRS PRN IV NAUSEA/VOMITING; Start 01/30/17 at 08:45 Oxycodone/ Acetaminophen (Percocet 5/325) 1 tab PRN Q6HRS PRN PO PAIN Last administered on 02/02/17 00:48; Start 01/30/17 at 08:45 Phenazopyridine HCl (Pyridium) 200 mg PRN TID PRN PO BLADDER SPASM; Start at 08:45 Tamsulosin HCl (Flomax) 0.4 mg DAILY PO ; Start 01/30/17 at 09:00; Stop 01/30/17 at 09:00; Status DC Tamsulosin HCl (Flomax) 0.8 mg DAILY PO Last administered on 02/02/17 09:29; Start 01/30/17 at 09:00 Doxycycline Hyclate 100 mg/ Dextrose 100 ml @ 50 mls/hr Q12HR IV Last administered on 02/01/17 08:57; Start 01/30/17 at 10:30; Stop 02/01/17 at 09:01; Status DC Sodium Chloride 1,000 ml @ 125 mls/hr Q8H IV Last administered on 01/31/17 06: 03; Start 01/30/17 at 13:00; Stop 01/31/17 at 13:43; Status DC Morphine Sulfate 2 mg PRN Q2HR PRN IV MODERATE PAIN Last administered on 03:54; Start 01/30/17 at 13:00 Morphine Sulfate 4 mg PRN Q2HR PRN IV SEVERE PAIN Last administered on 08:57; Start 01/30/17 at 13:00 Potassium Chloride (Klor-Con) 40 meq 1X ONCE PO Last administered on 01/31/17 12:59; Start 01/31/17 at 12:45; Stop 01/31/17 at 12:46; Status DC Polyethylene Glycol (miraLAX PACKET) 17 gm 1X ONCE PO Last administered on 01/31 13:00; Start 01/31/17 at 13:00; Stop 01/31/17 at 13:01; Status DC Polyethylene Glycol (miraLAX PACKET) 17 gm DAILY PO Last administered on 09:29; Start 02/01/17 at 09:00 Docusate Sodium (Colace) 100 mg DAILY PO Last administered on 02/02/17 09:29; Start 02/01/17 at 09:00 Potassium Acetate 40 meq/Sodium Chloride 1,020 ml @ 125 mls/hr Q8H10M IV Last administered on 02/01/17 02:05; Start 01/31/17 at 14:00; Stop 02/01/17 at 06:19; Status DC Magnesium Sulfate/ Dextrose 50 ml @ 25 mls/hr PRN DAILY PRN IV for Mag < 1.7 on am labs; Start 01/31/17 at 13:45 Sodium Chloride 1,000 ml @ 80 mls/hr [id number] IV Last administered on 02/02/17 09:43; Start 02/01/17 at 06:20 Magnesium Sulfate/ Dextrose 50 ml @ 25 mls/hr 1X ONCE IV Last administered on 02/01/17 08:56; Start 02/01/17 at 08:00; Stop 02/01/17 at 09:59; Status DC Levofloxacin (Levaquin) 750 mg DAILY06 PO Last administered on 02/02/17t 05:32; Start 02/01/17 at 09:00 Active Scripts Active Bactrim Ds Tablet (Sulfamethoxazole/Trimethoprim) 1 Each Tablet 1 Tab PO BID Pyridium (Phenazopyridine Hcl) 200 Mg Tablet 200 Mg PO TID PRN Naproxen 375 Mg Tablet 375 Mg PO BID Percocet 5-325 Mg Tablet (Oxycodone/Acetaminophen) 1 Each Tablet 1 Tab PO PRN Q6HRS PRN Reported Cialis (Tadalafil) 5 Mg Tablet Vitamin D2 (Ergocalciferol (Vitamin D2)) 50,000 Unit Capsule Dutasteride 0.5 Mg Capsule Flomax (Tamsulosin Hcl) 0.4 Mg Cap.er.24h 1 Cap PO DAILY Propranolol Hcl 20 Mg Tablet Vitals/I & O Vital Sign - Last 24 Hours 02/01/17 02/01/17 02/01/17 02/01/17 15:15 16:11 18:03 19:10 Temp 97.9 98.6 97.9 98.6 Pulse 71 70 Resp 20 20 B/P (MAP) 118/77 (91) 121/79 (93) Pulse Ox 96 96 O2 Delivery Room Air Room Air Room Air Room Air 02/01/17 02/01/17 02/01/17 02/02/17 19:56 20:00 23:08 00:48 Temp 98.8 98.8 Pulse 70 Resp 16 18 16 B/P (MAP) 141/73 (95) Pulse Ox 98 O2 Delivery Room Air Room Air Room Air Room Air 02/02/17 02/02/17 02/02/17 02/02/17 01:50 03:12 03:54 04:30 Temp 98.0 98.0 Pulse 82 Resp 16 18 14 16 B/P (MAP) 109/55 (73) Pulse Ox 97 O2 Delivery Room Air Room Air Room Air Room Air 02/02/17 02/02/17 02/02/17 07:00 08:00 11:00 Temp 98.4 98.7 98.4 98.7 Pulse 68 75 Resp 20 18 B/P (MAP) 129/80 (96) 132/88 (103) Pulse Ox 95 93 O2 Delivery Room Air Room Air Room Air Intake and Output 02/01/17 02/01/17 02/02/17 15:00 23:00 07:00 Intake Total 721 ml 975 ml 999 ml Output Total 1950 ml 1300 ml Balance 721 ml -975 ml -301 ml KIRSTIN PHILIPPE MD February 02, 2017 12:20
[2017-02-02 15:00] VITALS: BP 132/78
[2017-02-02] MEDS: NICOTINE 21MG PATCH. TD SCH (18:04)
[2017-02-02 19:20] VITALS: BP 118/79
[2017-02-02 22:59] VITALS: BP 120/74
[2017-02-03 03:26] VITALS: BP 124/80
[2017-02-03] MEDS: IV NORMAL SALINE 1000ML BAG 1,000 ML IV SCH (04:28)
[2017-02-03] MEDS: oxyCODONE/APAP 5/325 1 TAB TABLET PO PRN ×3 (04:55→21:40)
[2017-02-03 07:00] VITALS: BP 129/81
[2017-02-03] MEDS: POLYETHYLENE GLYCOL 3350 17 GM PACKET. PO SCH (09:45)
[2017-02-03] MEDS: NICOTINE 21MG PATCH. TD SCH (09:45)
[2017-02-03] MEDS: DOCUSATE SODIUM 100 MG CAPSULE. PO SCH (09:45)
[2017-02-03] MEDS: TAMSULOSIN 0.4 MG CAP.ER.24H. PO SCH (09:45)
[2017-02-03 11:00] VITALS: BP 139/83
--- NOTE | 2017-02-03 12:13 | PDOC ---
Infectious Disease Note Subjective Subjective Comfortable, less pain and swelling Appetite ok + BM ROS ROS GEN: Denies fevers, chills, sweats CV: Denies chest pain RESP: Denies shortness of air, cough GI: Denies n/v/d Vital Sign Vital Signs Vital Signs Date Time Temp Pulse Resp B/P (MAP) Pulse Ox O2 Delivery O2 Flow Rate FiO2 02/03/17 11:00 98.4 72 18 139/83 (101) 93 Room Air 98.4 Physical Exam PHYSICAL EXAM GENERAL: Lying down relaxed appearance, HEENT: PERRL, OC/OP pink and moist, edentulous LUNGS: Clear HEART: S1S2, no gallop, no murmur ABD: Soft, NT, BS present : Pérez. 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 Fever and leukocytosis, improved h/o kidney stones UTI with possible pyelonephritis. PSAE-pansensitive. POA Plan Plan of Care po Levaquin (cipro with upper chest muscle spasms ??). Is tolerating supportive detention soon Attending Co-Sign Attending Co-Sign The patient was seen and interviewed as well as examined at the bedside. The chart was reviewed. The case was discussed. Agree with the plan of care. PETER ABARCA APRN February 03, 2017 12:13 FABRICE GALE MD February 03, 2017 14:16
[2017-02-03 15:00] VITALS: BP 125/87
--- NOTE | 2017-02-03 16:45 | PDOC ---
PROGRESS NOTES Chief Complaint Chief Complaint 1. sepsis with Scrotal swelling and pain, epididymitis 2. bl epidemitis and bl hydroceles 3. UTI with possible pyelonephritis 4. BPH 5. CKD3 6. hypomagnesemia History of Present Illness History of Present Illness abd pain better has BPH, symptoms are getting better no new complaint cont current DC soon w/ [facility] per Uro ivf , flomax Vitals Vitals Vital Signs Date Time Temp Pulse Resp B/P (MAP) Pulse Ox O2 Delivery O2 Flow Rate FiO2 02/03/17 15:00 98.4 70 20 125/87 (100) 93 Room Air 98.4 Physical Exam Physical Exam General: Alert, Oriented X3, Cooperative, No acute distress Heart: Regular rate, Normal S1 Lungs: Clear Abdomen: Normal bowel sounds, Soft, No tenderness, Other Extremities: No clubbing, No cyanosis Labs LABS Laboratory Tests Test 02/03/17 05:05 Magnesium Level 1.9 mg/dL (1.8-2.4) Assessment and Plan Assessmemt and Plan Problems Medical Problems: (1) Pyelonephritis Status: Acute (2) Urinary retention Status: Acute Problems: Comment Review of Relevant I have reviewed the following items cesar (where applicable) has been applied. Labs Laboratory Tests Test 02/02/17 02:50 02/02/17 02:55 02/03/17 05:05 White Blood Count 8.2 x10^3/uL (4.0-11.0) Red Blood Count 4.05 x10^6/uL (4.30-5.70) Hemoglobin 12.3 g/dL (13.0-17.5) Hematocrit 36.3 % (39.0-53.0) Mean Corpuscular Volume 90 fL (79-100) Mean Corpuscular Hemoglobin 31 pg (25-35) Mean Corpuscular Hemoglobin Concent 34 g/dL (31-37) Red Cell Distribution Width 14.2 % (11.5-14.5) Platelet Count 259 x10^3/uL (140-400) Neutrophils (%) (Auto) 72 % (31-73) Lymphocytes (%) (Auto) 16 % (24-48) Monocytes (%) (Auto) 10 % (0-9) Eosinophils (%) (Auto) 2 % (0-3) Basophils (%) (Auto) 0 % (0-3) Neutrophils # (Auto) 5.8 x10^3uL (1.8-7.7) Lymphocytes # (Auto) 1.3 x10^3/uL (1.0-4.8) Monocytes # (Auto) 0.8 x10^3/uL (0.0-1.1) Eosinophils # (Auto) 0.2 x10^3/uL (0.0-0.7) Basophils # (Auto) 0.0 x10^3/uL (0.0-0.2) Sodium Level 137 mmol/L (136-145) Potassium Level 4.2 mmol/L (3.5-5.1) Chloride Level 103 mmol/L (98-107) Carbon Dioxide Level 24 mmol/L (21-32) Anion Gap 10 (6-14) Blood Urea Nitrogen 19 mg/dL (8-26) Creatinine 1.3 mg/dL (0.7-1.3) Estimated GFR (Cockcroft-Gault) 56.1 Glucose Level 85 mg/dL (70-99) Calcium Level 8.4 mg/dL (8.5-10.1) Magnesium Level 2.0 mg/dL (1.8-2.4) 1.9 mg/dL (1.8-2.4) Laboratory Tests Test 02/03/17 05:05 Magnesium Level 1.9 mg/dL (1.8-2.4) Microbiology 01/29/17 Blood Culture - Preliminary, Resulted NO GROWTH AFTER 4 DAYS 01/29/17 Urine Culture - Final, Complete 01/29/17 Urine Culture Result 1 (ROSANGELA) - Final, Complete 01/29/17 Antimicrobic Susceptibility - Final, Complete Medications Current Medications Ketorolac Tromethamine (Toradol) 10 mg 1X ONCE IV Last administered on 18:10; Start 01/29/17 at 18:00; Stop 01/29/17 at 18:01; Status DC Sodium Chloride 1,000 ml @ 1,000 mls/hr 1X ONCE IV Last administered on 18:10; Start 01/29/17 at 18:00; Stop 01/29/17 at 18:59; Status DC Cefepime HCl 1 gm/ Sodium Chloride 50 ml @ 100 mls/hr Q8HRS IV Last administered on 01/31/17 22:53; Start 01/30/17 at 06:00; Stop 02/01/17 at 09:01; Status DC Fentanyl Citrate (Fentanyl 2ml Vial) 25 mcg PRN Q15MIN PRN IV PAIN GREATER THAN 3/10; Start 01/29/17 at 20:00; Stop 01/30/17 at 00:00; Status DC Ondansetron HCl (Zofran) 4 mg 1X ONCE IV ; Start 01/29/17 at 20:00; Stop at 20:01; Status DC Cefepime HCl 1 gm/ Sodium Chloride 50 ml @ 100 mls/hr 1X ONCE IV Last administered on 01/29/17 20:15; Start 01/29/17 at 20:15; Stop 01/29/17 at 20:44; Status DC Ondansetron HCl (Zofran) 4 mg PRN Q8HRS PRN IV NAUSEA/VOMITING; Start 01/29/17 at 23:15; Stop 01/30/17 at 23:14; Status DC Morphine Sulfate 4 mg PRN Q2HR PRN IV SEVERE PAIN Last administered on 20:25; Start 01/29/17 at 23:15; Stop 01/30/17 at 23:14; Status DC Sodium Chloride 1,000 ml @ 125 mls/hr Q8H IV Last administered on 01/30/17 06: 04; Start 01/29/17 at 23:02; Stop 01/30/17 at 13:29; Status DC Acetaminophen (Tylenol) 650 mg PRN Q4HRS PRN PO FEVER Last administered on 00:14; Start 01/29/17 at 23:15; Stop 01/30/17 at 23:14; Status DC Ibuprofen (Motrin) 600 mg PRN Q6HRS PRN PO FEVER Last administered on 01/30/17 15:07; Start 01/30/17 at 03:15; Stop 01/30/17 at 17:47; Status DC Acetaminophen (Tylenol) 650 mg PRN Q6HRS PRN PO FEVER Last administered on 08:57; Start 01/30/17 at 08:45 Ondansetron HCl (Zofran) 4 mg PRN Q6HRS PRN IV NAUSEA/VOMITING; Start 01/30/17 at 08:45 Oxycodone/ Acetaminophen (Percocet 5/325) 1 tab PRN Q6HRS PRN PO PAIN Last administered on 02/03/17 14:12; Start 01/30/17 at 08:45 Phenazopyridine HCl (Pyridium) 200 mg PRN TID PRN PO BLADDER SPASM; Start at 08:45 Tamsulosin HCl (Flomax) 0.4 mg DAILY PO ; Start 01/30/17 at 09:00; Stop 01/30/17 at 09:00; Status DC Tamsulosin HCl (Flomax) 0.8 mg DAILY PO Last administered on 02/03/17 09:45; Start 01/30/17 at 09:00 Doxycycline Hyclate 100 mg/ Dextrose 100 ml @ 50 mls/hr Q12HR IV Last administered on 02/01/17 08:57; Start 01/30/17 at 10:30; Stop 02/01/17 at 09:01; Status DC Sodium Chloride 1,000 ml @ 125 mls/hr Q8H IV Last administered on 01/31/17 06: 03; Start 01/30/17 at 13:00; Stop 01/31/17 at 13:43; Status DC Morphine Sulfate 2 mg PRN Q2HR PRN IV MODERATE PAIN Last administered on 03:54; Start 01/30/17 at 13:00 Morphine Sulfate 4 mg PRN Q2HR PRN IV SEVERE PAIN Last administered on 08:57; Start 01/30/17 at 13:00 Potassium Chloride (Klor-Con) 40 meq 1X ONCE PO Last administered on 01/31/17 12:59; Start 01/31/17 at 12:45; Stop 01/31/17 at 12:46; Status DC Polyethylene Glycol (miraLAX PACKET) 17 gm 1X ONCE PO Last administered on 01/31 13:00; Start 01/31/17 at 13:00; Stop 01/31/17 at 13:01; Status DC Polyethylene Glycol (miraLAX PACKET) 17 gm DAILY PO Last administered on 09:45; Start 02/01/17 at 09:00 Docusate Sodium (Colace) 100 mg DAILY PO Last administered on 02/03/17 09:45; Start 02/01/17 at 09:00 Potassium Acetate 40 meq/Sodium Chloride 1,020 ml @ 125 mls/hr Q8H10M IV Last administered on 02/01/17 02:05; Start 01/31/17 at 14:00; Stop 02/01/17 at 06:19; Status DC Magnesium Sulfate/ Dextrose 50 ml @ 25 mls/hr PRN DAILY PRN IV for Mag < 1.7 on am labs; Start 01/31/17 at 13:45 Sodium Chloride 1,000 ml @ 80 mls/hr [id number] IV Last administered on 02/02/17 18:03; Start 02/01/17 at 06:20; Stop 02/03/17 at 05:00; Status DC Magnesium Sulfate/ Dextrose 50 ml @ 25 mls/hr 1X ONCE IV Last administered on 02/01/17 08:56; Start 02/01/17 at 08:00; Stop 02/01/17 at 09:59; Status DC Levofloxacin (Levaquin) 750 mg DAILY06 PO Last administered on 02/03/17 06:00; Start 02/01/17 at 09:00 Nicotine (Nicoderm Cq 21mg) 1 patch DAILY TD Last administered on 02/03/17 09: 45; Start 02/02/17 at 16:30 Active Scripts Active Bactrim Ds Tablet (Sulfamethoxazole/Trimethoprim) 1 Each Tablet 1 Tab PO BID Pyridium (Phenazopyridine Hcl) 200 Mg Tablet 200 Mg PO TID PRN Naproxen 375 Mg Tablet 375 Mg PO BID Percocet 5-325 Mg Tablet (Oxycodone/Acetaminophen) 1 Each Tablet 1 Tab PO PRN Q6HRS PRN Reported Cialis (Tadalafil) 5 Mg Tablet Vitamin D2 (Ergocalciferol (Vitamin D2)) 50,000 Unit Capsule Dutasteride 0.5 Mg Capsule Flomax (Tamsulosin Hcl) 0.4 Mg Cap.er.24h 1 Cap PO DAILY Propranolol Hcl 20 Mg Tablet Vitals/I & O Vital Sign - Last 24 Hours 02/02/17 02/02/17 02/02/17 02/02/17 19:20 20:00 21:02 22:59 Temp 98.2 98.3 98.2 98.3 Pulse 68 72 Resp 18 18 B/P (MAP) 118/79 (92) 120/74 (89) Pulse Ox 95 95 O2 Delivery Room Air Room Air Room Air Room Air 02/03/17 02/03/17 02/03/17 02/03/17 03:26 07:00 11:00 14:12 Temp 98.2 98.4 98.4 98.2 98.4 98.4 Pulse 75 69 72 Resp 18 18 18 16 B/P (MAP) 124/80 (95) 129/81 (97) 139/83 (101) Pulse Ox 96 93 93 O2 Delivery Room Air Room Air Room Air Room Air 02/03/17 15:00 Temp 98.4 98.4 Pulse 70 Resp 20 B/P (MAP) 125/87 (100) Pulse Ox 93 O2 Delivery Room Air Intake and Output 02/02/17 02/02/17 02/03/17 15:00 23:00 07:00 Intake Total 1998 ml 100 ml Output Total 600 ml 1600 ml Balance -600 ml 398 ml 100 ml KIRSTIN PHILIPPE MD February 03, 2017 16:44
[2017-02-03 19:06] VITALS: BP 135/84
[2017-02-03 23:08] VITALS: BP 119/77
[2017-02-04 03:06] VITALS: BP 119/79
[2017-02-04] MEDS: oxyCODONE/APAP 5/325 1 TAB TABLET PO PRN (06:06)
[2017-02-04 07:20] VITALS: BP 118/83
[2017-02-04] MEDS: POLYETHYLENE GLYCOL 3350 17 GM PACKET. PO SCH (09:00)
[2017-02-04] MEDS: NICOTINE 21MG PATCH. TD SCH (09:00)
[2017-02-04] MEDS: DOCUSATE SODIUM 100 MG CAPSULE. PO SCH (09:16)
[2017-02-04] MEDS: TAMSULOSIN 0.4 MG CAP.ER.24H. PO SCH (09:16)
--- NOTE | 2017-02-04 10:37 | PDOC ---
Infectious Disease Note Subjective Subjective Low-grade temp 100.0 Comfortable, pain going away Threw up his coffee this morning, but not feeling sick Wants to go home ROS ROS GEN: Denies chills, sweats CV: Denies chest pain RESP: Denies shortness of air, cough GI: Denies n//d Vital Sign Vital Signs Vital Signs Date Time Temp Pulse Resp B/P (MAP) Pulse Ox O2 Delivery O2 Flow Rate FiO2 02/04/17 07:50 Room Air 02/04/17 07:50 18 94 02/04/17 07:20 97.7 83 118/83 (95) 97.7 Physical Exam PHYSICAL EXAM GENERAL: Lying down relaxed appearance, HEENT: PERRL, OC/OP pink and moist, edentulous LUNGS: Clear HEART: S1S2, no gallop, no murmur ABD: Soft, NT, BS present : Pérez. 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 improving Fever Leukocytosis, improved h/o kidney stones UTI with possible pyelonephritis. PSAE-pansensitive. POA Plan Plan of Care po Levaquin (cipro with upper chest muscle spasms ??). Is tolerating Levoflox supportive care D/w Dr. Braun, urology. f/u appt 02/06. Pérez to remain in place Attending Co-Sign Attending Co-Sign The patient was seen and interviewed as well as examined at the bedside. The chart was reviewed. The case was discussed. Agree with the plan of care. PETER ABARCA APRN February 04, 2017 10:37 FABRICE GALE MD February 04, 2017 14:18
--- NOTE | 2017-02-04 10:58 | PDOC ---
PROGRESS NOTES Subjective Subjective Pt. feeling better Objective Objective Vital Signs Date Time Temp Pulse Resp B/P (MAP) Pulse Ox O2 Delivery O2 Flow Rate FiO2 02/04/17 07:50 Room Air 02/04/17 07:50 18 94 02/04/17 07:20 97.7 83 118/83 (95) 97.7 Intake and Output 02/04/17 07:00 Intake Total 200 ml Output Total 2525 ml Balance -2325 ml Intake Oral 200 ml Output Urine Total 2525 ml Physical Exam Physical Exam Scrotal edema decreased Urine yellow Plan Plan of Care Continue scrotal elevation Abs per ID Keep [facility] F/U urology on 02/06/17 Problems Medical Problems: (1) Pyelonephritis Status: Acute (2) Urinary retention Status: Acute Comment Review of Relevant I have reviewed the following items cesar (where applicable) has been applied. Labs Laboratory Tests Test 02/03/17 05:05 02/04/17 04:55 Magnesium Level 1.9 mg/dL (1.8-2.4) 1.8 mg/dL (1.8-2.4) Laboratory Tests Test 02/04/17 04:55 Magnesium Level 1.8 mg/dL (1.8-2.4) Microbiology 01/29/17 Blood Culture - Final, Complete NO GROWTH AFTER 5 DAYS 01/29/17 Urine Culture - Final, Complete 01/29/17 Urine Culture Result 1 (ROSANGELA) - Final, Complete 01/29/17 Antimicrobic Susceptibility - Final, Complete Medications Current Medications Ketorolac Tromethamine (Toradol) 10 mg 1X ONCE IV Last administered on 18:10; Start 01/29/17 at 18:00; Stop 01/29/17 at 18:01; Status DC Sodium Chloride 1,000 ml @ 1,000 mls/hr 1X ONCE IV Last administered on 18:10; Start 01/29/17 at 18:00; Stop 01/29/17 at 18:59; Status DC Cefepime HCl 1 gm/ Sodium Chloride 50 ml @ 100 mls/hr Q8HRS IV Last administered on 01/31/17 22:53; Start 01/30/17 at 06:00; Stop 02/01/17 at 09:01; Status DC Fentanyl Citrate (Fentanyl 2ml Vial) 25 mcg PRN Q15MIN PRN IV PAIN GREATER THAN 3/10; Start 01/29/17 at 20:00; Stop 01/30/17 at 00:00; Status DC Ondansetron HCl (Zofran) 4 mg 1X ONCE IV ; Start 01/29/17 at 20:00; Stop at 20:01; Status DC Cefepime HCl 1 gm/ Sodium Chloride 50 ml @ 100 mls/hr 1X ONCE IV Last administered on 01/29/17 20:15; Start 01/29/17 at 20:15; Stop 01/29/17 at 20:44; Status DC Ondansetron HCl (Zofran) 4 mg PRN Q8HRS PRN IV NAUSEA/VOMITING; Start 01/29/17 at 23:15; Stop 01/30/17 at 23:14; Status DC Morphine Sulfate 4 mg PRN Q2HR PRN IV SEVERE PAIN Last administered on 20:25; Start 01/29/17 at 23:15; Stop 01/30/17 at 23:14; Status DC Sodium Chloride 1,000 ml @ 125 mls/hr Q8H IV Last administered on 01/30/17 06: 04; Start 01/29/17 at 23:02; Stop 01/30/17 at 13:29; Status DC Acetaminophen (Tylenol) 650 mg PRN Q4HRS PRN PO FEVER Last administered on 00:14; Start 01/29/17 at 23:15; Stop 01/30/17 at 23:14; Status DC Ibuprofen (Motrin) 600 mg PRN Q6HRS PRN PO FEVER Last administered on 01/30/17 15:07; Start 01/30/17 at 03:15; Stop 01/30/17 at 17:47; Status DC Acetaminophen (Tylenol) 650 mg PRN Q6HRS PRN PO FEVER Last administered on 08:57; Start 01/30/17 at 08:45 Ondansetron HCl (Zofran) 4 mg PRN Q6HRS PRN IV NAUSEA/VOMITING; Start 01/30/17 at 08:45 Oxycodone/ Acetaminophen (Percocet 5/325) 1 tab PRN Q6HRS PRN PO PAIN Last administered on 02/04/17 06:06; Start 01/30/17 at 08:45 Phenazopyridine HCl (Pyridium) 200 mg PRN TID PRN PO BLADDER SPASM; Start at 08:45 Tamsulosin HCl (Flomax) 0.4 mg DAILY PO ; Start 01/30/17 at 09:00; Stop 01/30/17 at 09:00; Status DC Tamsulosin HCl (Flomax) 0.8 mg DAILY PO Last administered on 02/04/17 09:16; Start 01/30/17 at 09:00 Doxycycline Hyclate 100 mg/ Dextrose 100 ml @ 50 mls/hr Q12HR IV Last administered on 02/01/17 08:57; Start 01/30/17 at 10:30; Stop 02/01/17 at 09:01; Status DC Sodium Chloride 1,000 ml @ 125 mls/hr Q8H IV Last administered on 01/31/17 06: 03; Start 01/30/17 at 13:00; Stop 01/31/17 at 13:43; Status DC Morphine Sulfate 2 mg PRN Q2HR PRN IV MODERATE PAIN Last administered on 03:54; Start 01/30/17 at 13:00 Morphine Sulfate 4 mg PRN Q2HR PRN IV SEVERE PAIN Last administered on 08:57; Start 01/30/17 at 13:00 Potassium Chloride (Klor-Con) 40 meq 1X ONCE PO Last administered on 01/31/17 12:59; Start 01/31/17 at 12:45; Stop 01/31/17 at 12:46; Status DC Polyethylene Glycol (miraLAX PACKET) 17 gm 1X ONCE PO Last administered on 01/31 13:00; Start 01/31/17 at 13:00; Stop 01/31/17 at 13:01; Status DC Polyethylene Glycol (miraLAX PACKET) 17 gm DAILY PO Last administered on 09:45; Start 02/01/17 at 09:00 Docusate Sodium (Colace) 100 mg DAILY PO Last administered on 02/04/17 09:16; Start 02/01/17 at 09:00 Potassium Acetate 40 meq/Sodium Chloride 1,020 ml @ 125 mls/hr Q8H10M IV Last administered on 02/01/17 02:05; Start 01/31/17 at 14:00; Stop 02/01/17 at 06:19; Status DC Magnesium Sulfate/ Dextrose 50 ml @ 25 mls/hr PRN DAILY PRN IV for Mag < 1.7 on am labs; Start 01/31/17 at 13:45 Sodium Chloride 1,000 ml @ 80 mls/hr [id number] IV Last administered on 02/02/17 18:03; Start 02/01/17 at 06:20; Stop 02/03/17 at 05:00; Status DC Magnesium Sulfate/ Dextrose 50 ml @ 25 mls/hr 1X ONCE IV Last administered on 02/01/17 08:56; Start 02/01/17 at 08:00; Stop 02/01/17 at 09:59; Status DC Levofloxacin (Levaquin) 750 mg DAILY06 PO Last administered on 02/04/17 06:04; Start 02/01/17 at 09:00 Nicotine (Nicoderm Cq 21mg) 1 patch DAILY TD Last administered on 02/03/17 09: 45; Start 02/02/17 at 16:30 Active Scripts Active Bactrim Ds Tablet (Sulfamethoxazole/Trimethoprim) 1 Each Tablet 1 Tab PO BID Pyridium (Phenazopyridine Hcl) 200 Mg Tablet 200 Mg PO TID PRN Naproxen 375 Mg Tablet 375 Mg PO BID Percocet 5-325 Mg Tablet (Oxycodone/Acetaminophen) 1 Each Tablet 1 Tab PO PRN Q6HRS PRN Reported Cialis (Tadalafil) 5 Mg Tablet Vitamin D2 (Ergocalciferol (Vitamin D2)) 50,000 Unit Capsule Dutasteride 0.5 Mg Capsule Flomax (Tamsulosin Hcl) 0.4 Mg Cap.er.24h 1 Cap PO DAILY Propranolol Hcl 20 Mg Tablet Vitals/I & O Vital Sign - Last 24 Hours 02/03/17 02/03/17 02/03/17 02/03/17 11:00 14:12 15:00 19:06 Temp 98.4 98.4 98.2 98.4 98.4 98.2 Pulse 72 70 66 Resp 18 16 20 16 B/P (MAP) 139/83 (101) 125/87 (100) 135/84 (101) Pulse Ox 93 93 96 O2 Delivery Room Air Room Air Room Air Room Air 02/03/17 02/04/17 02/04/17 02/04/17 23:08 03:06 07:20 07:50 Temp 97.9 100.0 97.7 97.9 100.0 97.7 Pulse 75 67 83 Resp 18 18 18 18 B/P (MAP) 119/77 (91) 119/79 (92) 118/83 (95) Pulse Ox 93 100 94 94 O2 Delivery Room Air Room Air Room Air Room Air 02/04/17 07:50 O2 Delivery Room Air Intake and Output 02/03/17 02/03/17 02/04/17 15:00 23:00 07:00 Intake Total 200 ml Output Total 950 ml 375 ml 1200 ml Balance -950 ml -375 ml -1000 ml MANUEL PATINO MD February 04, 2017 10:58
[2017-02-04 11:00] VITALS: BP 126/82
[2017-02-04] MEDS ORDERED: LEVO750T31 PO (13:28)
[2017-02-04] MEDS ORDERED: OXYC-323 PO (13:28)
[2017-02-04] MEDS ORDERED: TAMS0.4C97 PO (13:28)
--- NOTE | 2017-02-04 13:49 | PDOC3 ---
Discharge Summary Visit Information Date of Admission: January 29, 2017 Date of Discharge: February 04, 2017 Admitting Diagnosis: pyelo Final Diagnosis 1. sepsis with Scrotal swelling and pain, epididymitis 2. bl epidemitis and bl hydroceles 3. UTI with possible pyelonephritis 4. BPH 5. CKD3 6. hypomagnesemia Problems Medical Problems: (1) Pyelonephritis Status: Acute (2) Urinary retention Status: Acute Brief Hospital Course Allergies Allergies Coded Allergies Type Severity Reaction Last Updated Verified ceftriaxone Allergy Intermediate MUSCLE SPASMS 01/29/17 Yes ciprofloxacin Allergy Intermediate Palpitations 05/02/16 Yes Vital Signs Vital Signs Date Time Temp Pulse Resp B/P (MAP) Pulse Ox O2 Delivery O2 Flow Rate FiO2 02/04/17 11:00 98.4 77 20 126/82 (97) 95 Room Air 98.4 Lab Results Laboratory Tests Test 02/03/17 05:05 02/04/17 04:55 Magnesium Level 1.9 mg/dL (1.8-2.4) 1.8 mg/dL (1.8-2.4) Laboratory Tests Test 02/04/17 04:55 Magnesium Level 1.8 mg/dL (1.8-2.4) Brief Hospital Course Mr. Barajas is a 61-year-old male who presented with nausea, vomiting and flank pain, 7/10 Dx acute pyelonephritis. scrotal swelling and cellulitis, pain IV fluids, IV antibiotics. abd pain better has BPH, flomax to 0.8 DC on levaquin 750, f./u with Dr. Braun 2 days, DC with [facility] Discharge Information Condition at Discharge: Improved Follow Up: Weeks Disposition/Orders: D/C to Home Scheduled Naproxen (Naproxen), 375 MG PO BID Sulfamethoxazole/Trimethoprim (Bactrim Ds Tablet), 1 TAB PO BID Tamsulosin Hcl (Flomax), 1 CAP PO DAILY, (Reported) Scheduled PRN Oxycodone/Apap 5-325 (Percocet 5-325 Mg Tablet), 1 TAB PO PRN Q6HRS PRN for PAIN Phenazopyridine Hcl (Pyridium), 200 MG PO TID PRN for BLADDER SPASM Miscellaneous Medications Dutasteride (Dutasteride), (Reported) Ergocalciferol (Vitamin D2) (Vitamin D2), (Reported) Propranolol Hcl (Propranolol Hcl), (Reported) Tadalafil (Cialis), (Reported) Patient Instructions Patient Instructions time .> 30min KIRSTIN PHILIPPE MD February 04, 2017 13:48
== END 2017-02-04 14:20 | disposition home or self-care (01) | DRG 872 ==
LOC: ER 16:38 → 4 NORTH 19:53
PROVIDERS: ADMIT Internal Medicine; ATTEND Internal Medicine
DX: A41.9 Sepsis, unspecified organism (principal); L03.90 Cellulitis, unspecified; N10 Acute pyelonephritis; N17.9 Acute kidney failure, unspecified; E83.42 Hypomagnesemia; G25.0 Essential tremor; N18.3 Chronic kidney disease, stage 3 (moderate); N21.1 Calculus in urethra; N40.1 Benign prostatic hyperplasia with lower urinary tract symptoms; N43.3 Hydrocele, unspecified; N45.3 Epididymo-orchitis; N50.89 Other specified disorders of the male genital organs; Z83.3 Family history of diabetes mellitus; Z87.440 Personal history of urinary (tract) infections; Z87.442 Personal history of urinary calculi; Z87.891 Personal history of nicotine dependence; Z88.8 Allergy status to other drugs, medicaments and biological substances; Z88.1 Allergy status to other antibiotic agents
CPT/HCPCS: 36415; 51702; 76770; 76870; 80048; 80053; 81001; 83735; 85007; 85027; 87040; 87086; 87186; 93005; 96361; 96365; 96366; 96375; J0692; J1885; J2270; J3490; J7030; J7060; 99285-25